=== PATIENT | female | born 1940 | race Caucasian/White ===

== ENCOUNTER → 2016-11-20 | Outpatient (CLI) | payer MEDICARE, OTHER ==
[~2016-11-20] MED LIST: ALEN35TA20 PO; ALEN35TA32 PO; CALC-697 PO; CATHETER FLUSH 10 ML SYR IV PRN; GABA-488 PO; GBPN300C PO; GLUC-148 PO; HCT25T PO; HYDR-3812 PO; HYDR-757 PO; HYDR25TA4 PO; IOHEXOL 350 MG/ML 100 ML (OMNIPAQUE 350) VIAL IV ONE; LISI20TA PO; NIAC500T6 PO; NS 100 ML (IVPB) BAG IV ONE; POTA10TA10 PO; PRD20T PO; SIMV40TA4 PO
--- NOTE | 2016-11-20 14:14 | Diagnostic Imaging Report ---
PROCEDURE: CT chest, abdomen, and pelvis with contrast. TECHNIQUE: Multiple contiguous axial images were obtained through the chest, abdomen, and pelvis after the administration of intravenous contrast. INDICATION: 25-pound weight loss, tobacco use, epigastric pain. CT chest: FINDINGS: The lungs are clear. There is no hilar or mediastinal lymphadenopathy. There are no effusions or pneumothoraces. Axillae are unremarkable. IMPRESSION: Negative CT chest. CT abdomen and pelvis: FINDINGS: The liver appears normal. The gallbladder is present. Pancreas appears normal. Spleen is not enlarged. Kidneys, adrenals and ureters appear normal. Urinary bladder appears normal. The uterus is surgically absent. Small bowel is not dilated. There is a moderate amount of stool in the colon. There is no intraperitoneal free air or free fluid. There is no mesenteric or retroperitoneal lymphadenopathy. There is some calcific atherosclerosis of the abdominal aorta and the origins of its major branches. IMPRESSION: Atherosclerosis. CT abdomen and pelvis otherwise unremarkable. Dictated by: Dictated on workstation # [id number]
== END ==
LOC: RAD 12:43
PROVIDERS: ATTEND Nurse Practitioner Family
DX: R10.13 Epigastric pain (principal); R63.4 Abnormal weight loss; Z72.0 Tobacco use
CPT/HCPCS: 71260; 74177

== ENCOUNTER → 2017-01-01 | Outpatient (CLI) | payer MEDICARE, OTHER ==
[~2017-01-01] MED LIST changes: -CATHETER FLUSH 10 ML SYR IV PRN; -IOHEXOL 350 MG/ML 100 ML (OMNIPAQUE 350) VIAL IV ONE; -NS 100 ML (IVPB) BAG IV ONE
--- OUTSIDE RECORDS SUMMARY | 2017-01-01 08:57 | XMS REPORT | Continuity of Care Document ---
Author Author [facility] Organization [facility] Address Unknown Phone Unavailable Allergies Active Description Code Type Severity Reaction Onset Reported/Identified Relationship to Patient Clinical Status Yes No Known Drug Allergies [id number] Drug Allergy Unknown N/ A 12/31/2011 Medications Problems Date Dx Coded Attending Type Code Diagnosis Diagnosed By 06/14/2013 LINDA TEJADA FIELD AUTOMOBILE ADJUSTER Ot 812.20 FX HUMERUS NOS-CLOSED 06/14/2013 LINDA TEJADA FIELD AUTOMOBILE ADJUSTER Ot 959.2 SHLDR/UPPER ARM INJ NOS 06/14/2013 LINDA TEJADA FIELD AUTOMOBILE ADJUSTER Ot E000.8 OTHER EXTERNAL CAUSE STATUS 06/14/2013 LINDA TEJADA FIELD AUTOMOBILE ADJUSTER Ot E849.0 ACCIDENT IN HOME 06/14/2013 LINDA TEJADA FIELD AUTOMOBILE ADJUSTER Ot E885.9 FALL FROM SLIPPING, TRIPPING, OR STUMBLI 02/28/2014 RBENDA CHARLES, ELIE Jackman Ot 719.51 JT STIFFNESS NEC-SHLDER 02/28/2014 ELIE GUTIERREZ MD Ot 729.5 PAIN IN LIMB 02/28/2014 BRENDA CHARLES, ELIE Jackman Ot V57.1 PHYSICAL THERAPY NEC 02/28/2014 BRENDA CHARLES, ELIE Jackman Ot V58.43 AFTERCARE POST SURGERY INJURY/TRAUMA 11/01/2014 Ot 793.82 11/01/2014 Ot V76.12 11/01/2014 Ot 305.1 11/01/2014 Ot 786.50 11/01/2014 Ot V12.72 11/01/2014 Ot V76.51 11/01/2014 Ot 793.81 11/01/2014 SONU NEGRON MD Ot V76.12 11/01/2014 SONU NEGRON MD Ot 724.2 11/01/2014 SONU NEGRON MD Ot V54.11 11/01/2014 SONU NEGRON MD Ot 459.89 11/01/2014 SONU NEGRON MD Ot V54.11 11/01/2014 MIGDALIA CHARLES, SONU M Ot 305.1 11/01/2014 MIGDALIA CHARLES, SONU M Ot 784.0 11/01/2014 MIGDALIA CHARLES, SONU M Ot 786.09 11/01/2014 MIGDALIA CHARLES, SONU M Ot 786.50 11/01/2014 Ot 793.82 11/01/2014 Ot V76.12 11/01/2014 Ot 305.1 11/01/2014 Ot 786.50 11/01/2014 Ot V12.72 11/01/2014 Ot V76.51 11/01/2014 Ot 793.81 11/01/2014 MIGDALIA CHARLES, SONU M Ot V76.12 11/01/2014 MIGDALIA CHARLES, SONU M Ot 724.2 11/01/2014 MIGDALIA CHARLES, SONU M Ot V54.11 11/01/2014 MIGDALIA CHARLES, SONU M Ot 459.89 11/01/2014 MIGDALIA CHARLES, SONU M Ot V54.11 11/01/2014 MIGDALIA CHARLES, SONU M Ot 305.1 11/01/2014 MIGDALIA CHARLES, SONU M Ot 784.0 11/01/2014 MIGDALIA CHARLES, SONU M Ot 786.09 11/01/2014 MIGDALIA CHARLES, SONU M Ot 786.50 11/01/2014 MIGDALIA CHARLES, SONU M Ot 305.1 11/01/2014 MIGDALIA CHARLES, SONU M Ot 784.0 11/01/2014 MIGDALIA CHARLES, SONU M Ot 786.09 11/01/2014 MIGDALIA CHARLES, SONU M Ot 786.50 11/17/2014 MIGDALIA CHARLES, SONU M Ot 305.1 11/17/2014 MIGDALIA CHARLES, SONU M Ot 784.0 11/17/2014 MIGDALIA CHARLES, SONU M Ot 786.09 11/17/2014 MIGDALIA CHARLES, SONU M Ot 786.50 05/23/2015 KOFFI MCCAIN PRIVATE DUTY AIDE Ot 305.1 05/23/2015 KOFFI MCCAIN PRIVATE DUTY AIDE Ot 733.90 06/08/2015 KOFFI MCCAIN PRIVATE DUTY AIDE Ot 305.1 06/08/2015 KOFFI MCCAIN PRIVATE DUTY AIDE Ot 733.90 07/24/2015 MEGAN ESPINOSA MD Ot E78.5 HYPERLIPIDEMIA, UNSPECIFIED 07/24/2015 MEGAN ESPINSOA MD Ot E87.6 HYPOKALEMIA 07/24/2015 MEGAN ESPINOSA MD Ot F17.200 NICOTINE DEPENDENCE, UNSPECIFIED, UNCOMP 07/24/2015 MEGAN ESPINOSA MD Ot M46.1 SACROILIITIS, NOT ELSEWHERE CLASSIFIED 07/24/2015 MEGAN ESPINOSA MD Ot M54.30 SCIATICA, UNSPECIFIED SIDE 07/24/2015 MEGAN ESPINOSA MD Ot M62.81 MUSCLE WEAKNESS (GENERALIZED) 07/24/2015 MEGAN ESPINOSA MD Ot T39.8X5A ADVERSE EFFECT OF NONOPIOID ANALGES/ ANTI 04/08/2016 Ot 793.82 INCONCLUSIVE MAMMOGRAM 04/08/2016 Ot V76.12 OTH SCREEN MAMMO-MALIGN NEOPLASM OF ZAID 04/08/2016 Ot 305.1 TOBACCO USE DISORDER 04/08/2016 Ot 786.50 CHEST PAIN NOS 04/08/2016 Ot V12.72 PERSONAL HISTORY OF COLONIC POLYPS 04/08/2016 Ot V76.51 SCREEN MAL NEOP-COLON 04/08/2016 Ot 793.81 MAMMOGRAPHIC MICROCLACIFICATION 04/08/2016 SONU NEGRON MD Ot V76.12 OTH SCREEN MAMMO-MALIGN NEOPLASM OF ZAID 04/08/2016 SONU NEGRON MD Ot 724.2 LUMBAGO 04/08/2016 SONU NEGRON MD Ot V54.11 AFTERCARE HEALING TRAUMATIC FX UPPER ARM 04/08/2016 SONU NEGRON MD Ot 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 04/08/2016 SONU NEGRON MD Ot V54.11 AFTERCARE HEALING TRAUMATIC FX UPPER ARM 04/08/2016 SONU NEGRON MD Ot 305.1 TOBACCO USE DISORDER 04/08/2016 SONU NEGRON MD Ot 784.0 HEADACHE 04/08/2016 SONU NEGRON MD Ot 786.09 RESPIRATORY ABNORM NEC 04/08/2016 SONU NEGRON MD Ot 786.50 CHEST PAIN NOS 04/08/2016 KOFFI MCCAIN Ot 305.1 TOBACCO USE DISORDER 04/08/2016 KOFFI MCCAIN PRIVATE DUTY AIDE Ot 733.90 BONE CARTILAGE DIS NOS 05/07/2016 KOFFI MCCAIN PRIVATE DUTY AIDE Ot M54.5 LOW BACK PAIN 06/13/2016 Ot 793.82 INCONCLUSIVE MAMMOGRAM 06/13/2016 Ot V76.12 OTH SCREEN MAMMO-MALIGN NEOPLASM OF ZAID 06/13/2016 Ot 305.1 TOBACCO USE DISORDER 06/13/2016 Ot 786.50 CHEST PAIN NOS 06/13/2016 Ot V12.72 PERSONAL HISTORY OF COLONIC POLYPS 06/13/2016 Ot V76.51 SCREEN MAL NEOP-COLON 06/13/2016 Ot 793.81 MAMMOGRAPHIC MICROCLACIFICATION 06/13/2016 SONU NEGRON MD Ot V76.12 OTH SCREEN MAMMO-MALIGN NEOPLASM OF ZAID 06/13/2016 SONU NEGRON MD Ot 724.2 LUMBAGO 06/13/2016 SONU NEGRON MD Ot V54.11 AFTERCARE HEALING TRAUMATIC FX UPPER ARM 06/13/2016 SONU NEGRON MD Ot 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 06/13/2016 SONU NEGRON MD Ot V54.11 AFTERCARE HEALING TRAUMATIC FX UPPER ARM 06/13/2016 SONU NEGRON MD Ot 305.1 TOBACCO USE DISORDER 06/13/2016 SONU NEGRON MD Ot 784.0 HEADACHE 06/13/2016 SONU NEGRON MD Ot 786.09 RESPIRATORY ABNORM NEC 06/13/2016 SONU NEGRON MD Ot 786.50 CHEST PAIN NOS 06/13/2016 KOFFI MCCAIN PRIVATE DUTY AIDE Ot 305.1 TOBACCO USE DISORDER 06/13/2016 KOFFI MCCAIN PRIVATE DUTY AIDE Ot 733.90 BONE CARTILAGE DIS NOS 06/13/2016 KOFFI MCCAINP Ot M54.5 LOW BACK PAIN 06/13/2016 KOFFI MCCAINP Ot Z12.31 ENCNTR SCREEN MAMMOGRAM FOR MALIGNANT NE 07/05/2016 KOFFI MCCAIN PRIVATE DUTY AIDE Ot Z12.31 ENCNTR SCREEN MAMMOGRAM FOR MALIGNANT NE 07/12/2016 RAVINDER HARRY FIELD AUTOMOBILE ADJUSTER Ot M79.602 PAIN IN LEFT ARM 07/12/2016 RAVINDER HARRY FIELD AUTOMOBILE ADJUSTER Ot R07.9 CHEST PAIN, UNSPECIFIED 07/12/2016 RAVINDER HARRY FIELD AUTOMOBILE ADJUSTER Ot R11.0 NAUSEA 07/30/2016 Ot 793.82 INCONCLUSIVE MAMMOGRAM 07/30/2016 Ot V76.12 OTH SCREEN MAMMO-MALIGN NEOPLASM OF ZAID 07/30/2016 Ot 305.1 TOBACCO USE DISORDER 07/30/2016 Ot 786.50 CHEST PAIN NOS 07/30/2016 Ot V12.72 PERSONAL HISTORY OF COLONIC POLYPS 07/30/2016 Ot V76.51 SCREEN MAL NEOP-COLON 07/30/2016 Ot 793.81 MAMMOGRAPHIC MICROCLACIFICATION 07/30/2016 MIGDALIA CHARLES, SONU Steel Ot V76.12 OTH SCREEN MAMMO-MALIGN NEOPLASM OF ZAID 07/30/2016 MIGDALIA CHARLES, SONU Steel Ot 724.2 LUMBAGO 07/30/2016 SONU NEGRON MD Ot V54.11 AFTERCARE HEALING TRAUMATIC FX UPPER ARM 07/30/2016 SOUN NEGRON MD Ot 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 07/30/2016 SONU NEGRON MD Ot V54.11 AFTERCARE HEALING TRAUMATIC FX UPPER ARM 07/30/2016 SONU NEGRON MD Ot 305.1 TOBACCO USE DISORDER 07/30/2016 SONU NEGRON MD Ot 784.0 HEADACHE 07/30/2016 SONU NEGRON MD Ot 786.09 RESPIRATORY ABNORM NEC 07/30/2016 SONU NEGRON MD Ot 786.50 CHEST PAIN NOS 07/30/2016 KOFFI MCCAIN Ot 305.1 TOBACCO USE DISORDER 07/30/2016 KOFFI MCCAINP Ot 733.90 BONE CARTILAGE DIS NOS 07/30/2016 KOFFI MCCAIN PRIVATE DUTY AIDE Ot M54.5 LOW BACK PAIN 07/30/2016 KOFFI MCCAINP Ot Z12.31 ENCNTR SCREEN MAMMOGRAM FOR MALIGNANT NE 07/30/2016 RAVINDER HARRY APRN Ot M79.602 PAIN IN LEFT ARM 07/30/2016 RAVINDER HARRY APRN Ot R07.9 CHEST PAIN, UNSPECIFIED 07/30/2016 RAVINDER HARRY APRN Ot R11.0 NAUSEA 07/31/2016 ANTHONY CHARLES, LETI Portillo Ot R07.9 CHEST PAIN, UNSPECIFIED 07/31/2016 LETI CRUZ MD Ot Z72.0 TOBACCO USE 07/31/2016 LETI CRUZ MD Ot Z82.49 FAMILY HX OF ISCHEM HEART DIS AND OTH DI 07/31/2016 LETI CRUZ MD Ot Z83.49 FAMILY HISTORY OF ENDO, NUTRITIONAL AND 08/01/2016 RAVINDER HARRY FIELD AUTOMOBILE ADJUSTER Ot M79.602 PAIN IN LEFT ARM 08/01/2016 KAMRYN RAVINDER M FIELD AUTOMOBILE ADJUSTER Ot R07.9 CHEST PAIN, UNSPECIFIED 08/01/2016 KAMRYN RAVINDER Steel FIELD AUTOMOBILE ADJUSTER Ot R11.0 NAUSEA 08/19/2016 LETI CRUZ MD Ot R07.9 CHEST PAIN, UNSPECIFIED 08/19/2016 LETI CRUZ MD Ot R07.9 CHEST PAIN, UNSPECIFIED 08/20/2016 LETI CRUZ MD Ot R07.9 CHEST PAIN, UNSPECIFIED 08/20/2016 LETI CRUZ MD Ot Z72.0 TOBACCO USE 08/20/2016 LETI CRUZ MD Ot Z82.49 FAMILY HX OF ISCHEM HEART DIS AND OTH DI 08/20/2016 LETI CRUZ MD Ot Z83.49 FAMILY HISTORY OF ENDO, NUTRITIONAL AND 08/20/2016 LETI CRUZ MD Ot R07.9 CHEST PAIN, UNSPECIFIED 08/20/2016 LETI CRUZ MD Ot Z72.0 TOBACCO USE 08/20/2016 LETI CRUZ MD Ot Z82.49 FAMILY HX OF ISCHEM HEART DIS AND OTH DI 08/20/2016 LETI CRUZ MD Ot Z83.49 FAMILY HISTORY OF ENDO, NUTRITIONAL AND 08/20/2016 LETI CRUZ MD Ot R07.9 CHEST PAIN, UNSPECIFIED 08/20/2016 LETI CRUZ MD Ot Z72.0 TOBACCO USE 08/20/2016 LETI CRUZ MD Ot Z82.49 FAMILY HX OF ISCHEM HEART DIS AND OTH DI 08/20/2016 LETI CRUZ MD Ot Z83.49 FAMILY HISTORY OF ENDO, NUTRITIONAL AND 08/25/2016 LETI CRUZ MD Ot R07.9 CHEST PAIN, UNSPECIFIED 08/25/2016 LETI CRUZ MD Ot Z72.0 TOBACCO USE 08/25/2016 LETI CRUZ MD J Ot Z82.49 FAMILY HX OF ISCHEM HEART DIS AND OTH DI 08/25/2016 LETI CRUZ MD J Ot Z83.49 FAMILY HISTORY OF ENDO, NUTRITIONAL AND 08/27/2016 LETI CRUZ MD J Ot R07.9 CHEST PAIN, UNSPECIFIED 08/27/2016 LETI CRUZ MD J Ot Z72.0 TOBACCO USE 08/27/2016 LETI CRUZ MD J Ot Z82.49 FAMILY HX OF ISCHEM HEART DIS AND OTH DI 09/10/2016 LETI CRUZ MD J Ot R07.9 CHEST PAIN, UNSPECIFIED 09/10/2016 LETI CRUZ MD J Ot Z72.0 TOBACCO USE 09/10/2016 LETI CRUZ MD J Ot Z82.49 FAMILY HX OF ISCHEM HEART DIS AND OTH DI 09/10/2016 LETI CRUZ MD J Ot Z83.49 FAMILY HISTORY OF ENDO, NUTRITIONAL AND 09/17/2016 LETI CRUZ MD J Ot R07.9 CHEST PAIN, UNSPECIFIED 09/17/2016 LETI CRUZ MD J Ot Z72.0 TOBACCO USE 09/17/2016 LETI CRUZ MD J Ot Z82.49 FAMILY HX OF ISCHEM HEART DIS AND OTH DI 11/21/2016 KOFFI MCCAIN PRIVATE DUTY AIDE Ot R10.13 EPIGASTRIC PAIN 11/21/2016 KOFFI MCCAIN PRIVATE DUTY AIDE Ot R63.4 ABNORMAL WEIGHT LOSS 11/21/2016 KOFFI MCCAIN PRIVATE DUTY AIDE Ot Z72.0 TOBACCO USE 11/21/2016 KOFFI MCCAIN PRIVATE DUTY AIDE Ot R10.13 EPIGASTRIC PAIN 11/21/2016 KOFFI MCCAIN PRIVATE DUTY AIDE Ot R63.4 ABNORMAL WEIGHT LOSS 11/21/2016 KOFFI MCCAIN PRIVATE DUTY AIDE Ot Z72.0 TOBACCO USE 12/11/2016 KOFFI MCCAIN PRIVATE DUTY AIDE Ot R10.13 EPIGASTRIC PAIN 12/11/2016 KOFFI MCCAIN PRIVATE DUTY AIDE Ot R63.4 ABNORMAL WEIGHT LOSS 12/11/2016 KOFFI MCCAIN PRIVATE DUTY AIDE Ot Z72.0 TOBACCO USE 12/24/2016 KOFFI MCCAIN PRIVATE DUTY AIDE Ot R10.13 EPIGASTRIC PAIN 12/24/2016 KOFFI MCCAIN PRIVATE DUTY AIDE Ot R63.4 ABNORMAL WEIGHT LOSS 12/24/2016 KOFFI MCCAIN [facility] Ot Z72.0 TOBACCO USE Procedures Results Test Result Range Complete blood count (CBC) with automated white blood cell (WBC) differential - 07/11/16 12:35 Blood leukocytes automated count (number/volume) 8.5 10*3/ uL 4.3-11.0 Blood erythrocytes automated count (number/volume) 4.69 10*6 /uL 4.35-5.85 Venous blood hemoglobin measurement (mass/volume) 14.9 g/dL 11.5-16.0 Blood hematocrit (volume fraction) 43 % 35-52 Automated erythrocyte mean corpuscular volume 91 [foz_us] 80-99 Automated erythrocyte mean corpuscular hemoglobin (mass per erythrocyte) 32 pg 25-34 Automated erythrocyte mean corpuscular hemoglobin concentration measurement ( mass/volume) 35 g/dL 32-36 Automated erythrocyte distribution width ratio 14.2 % 10.0-14.5 Automated blood platelet count (count/volume) 188 10*3/uL 130-400 Automated blood platelet mean volume measurement 10.6 [foz_ us] 7.4-10.4 Automated blood neutrophils/100 leukocytes 62 % 42-75 Automated blood lymphocytes/100 leukocytes 28 % 12-44 Blood monocytes/100 leukocytes 7 % 0-12 Automated blood eosinophils/100 leukocytes 3 % 0-10 Automated blood basophils/100 leukocytes 1 % 0-10 Blood neutrophils automated count (number/volume) 5.2 10*3 1.8-7.8 Blood lymphocytes automated count (number/volume) 2.4 10*3 1.0-4.0 Blood monocytes automated count (number/volume) 0.6 10*3 0.0-1.0 Automated eosinophil count 0.2 10*3/uL 0.0-0.3 Automated blood basophil count (count/volume) 0.1 10*3/uL 0.0-0.1 Comprehensive metabolic panel - 07/11/16 12:35 Serum or plasma sodium measurement (moles/volume) 142 mmol/ L 135-145 Serum or plasma potassium measurement (moles/volume) 3.7 mmol/L 3.6-5.0 Serum or plasma chloride measurement (moles/volume) 110 mmol /L 98-107 Carbon dioxide 22 mmol/L 21-32 Serum or plasma anion gap determination (moles/volume) 10 mmol/L 5-14 Serum or plasma urea nitrogen measurement (mass/volume) 15 mg/dL 7-18 Serum or plasma creatinine measurement (mass/volume) 0.90 mg /dL 0.60-1.30 Serum or plasma urea nitrogen/creatinine mass ratio 17 NRG Serum or plasma creatinine measurement with calculation of estimated glomerular filtration rate > NRG Serum or plasma glucose measurement (mass/volume) 93 mg/dL 70-105 Serum or plasma calcium measurement (mass/volume) 10.0 mg/ dL 8.5-10.1 Serum or plasma total bilirubin measurement (mass/volume) 0.4 mg/dL 0.1-1.0 Serum or plasma alkaline phosphatase measurement (enzymatic activity/volume) 38 U/L 40-136 Serum or plasma aspartate aminotransferase measurement (enzymatic activity/ volume) 23 U/L 5-34 Serum or plasma alanine aminotransferase measurement (enzymatic activity/volume ) 16 U/L 0-55 Serum or plasma protein measurement (mass/volume) 6.5 g/dL 6.4-8.2 Serum or plasma albumin measurement (mass/volume) 4.2 g/dL 3.2-4.5 Serum or plasma creatine kinase MB measurement (enzymatic activity/volume) - 12:35 Serum or plasma creatine kinase MB measurement (enzymatic activity/volume) 1.5 ng/mL <6.6 Serum or plasma troponin i.cardiac measurement (mass/volume) - 07/11/16 12:35 Serum or plasma troponin i.cardiac measurement (mass/volume) < ng/mL <0.30 Encounters ACCT No. Visit Date/Time Discharge Status Pt. Type Provider Facility Loc./Unit Complaint [id number] 07/28/2015 10:24:00 2014 23:59:59 CLS Preadmit MEGAN ESPINOSA MD [facility] REHAB [id number] 07/23/2015 11:33:00 2014 10:57:00 DIS Inpatient MEGAN ESPINOSA MD [facility] CSD LEFT SIDED WEAKNESS [id number] 05/18/2015 09:12:00 2014 23:59:59 CLS Outpatient KOFFI MCCAIN [facility] RAD OSTEOPOROSIS TOBACCO USE [id number] 10/19/2014 07:55:00 2013 23:59:59 CLS Outpatient OSNU NEGRON MD [facility] RAD HEADACHES,DYSGEUSIA [id number] 12/28/2013 12:53:00 2013 00:01:00 DIS Outpatient ELIE GUTIERREZ MD [facility] REHAB L SHOULDER HEMIARTHROPLASTY, L CARPAL TUNNEL SYND [id number] 10/19/2013 12:14:00 2012 23:59:59 CLS Outpatient SONU NEGRON MD [facility] RAD PAIN IN LEFT SHOULDER [id number] 08/16/2013 10:40:00 2012 23:59:59 CLS Outpatient SONU NEGRON MD [facility] RAD F/U FX HUMERUS,PACK PAIN [id number] 06/14/2013 12:53:00 2012 14:41:00 DIS Emergency LINDA TEJADA FIELD AUTOMOBILE ADJUSTER [facility] ER FALL/LEFT SHOULDER INJURY [id number] 03/08/2013 09:06:00 2012 23:59:59 CLS Outpatient SONU NEGRON MD [facility] RAD SCREENING [id number] 11/20/2016 12:43:00 ACT Outpatient KOFFI MCCAIN PRIVATE DUTY AIDE [facility] RAD ABD PAIN, WT LOSS, TOBACCO USE [id number] 08/26/2016 14:58:00 ACT Outpatient LETI CRUZ MD [facility] RAD CHEST PAIN SYNDROME [id number] 08/19/2016 06:51:00 ACT Outpatient LETI CRUZ MD [facility] CARD CHEST PAIN SYNDROME,CAD [id number] 07/30/2016 14:35:00 ACT Outpatient LETI CRUZ MD [facility] CARD CHEST PAIN SYNDROME,HLP,CAD,CAROTID ARTERY STENOSI [id number] 07/11/2016 12:12:00 ACT Outpatient RAVINDER HARRY FIELD AUTOMOBILE ADJUSTER [facility] CARD CHEST PAIN,LT ARM PAIN,NAUSEA [id number] 06/13/2016 10:49:00 ACT Outpatient KOFFI MCCAIN [facility] RAD SCREENING [id number] 04/08/2016 11:46:00 ACT Outpatient KOFFI MCCAIN [facility] RAD LOW BACK PAIN [id number] 11/01/2014 16:06:00 Document Registration [id number] 01/14/2012 12:50:00 Document Registration [id number] 01/02/2012 05:48:00 Document Registration [id number] 12/31/2011 06:17:00 Document Registration [id number] 12/27/2011 10:51:00 Document Registration
--- NOTE | 2017-01-01 09:40 | Diagnostic Imaging Report ---
EXAMINATION: Right upper extremity duplex ultrasound venous. INDICATION: Right arm pain. FINDINGS: The right internal jugular, subclavian, axillary, brachial, basilic, radial, and ulnar veins are all patent with color flow and compressibility (when applicable) seen. There is a fluid collection measuring 1.4 x 0.9 x 1.8 cm seen in the antecubital fossa in a relatively deep location, possibly related to a ganglion cyst or injury related. IMPRESSION: 1. No evidence of DVT in the right upper extremity. 2. There is a 1.4 cm cystic area in the antecubital fossa deep soft tissues, possibly a ganglion cyst or sequela of a hematoma. Dictated by: Dictated on workstation # [id number]
== END ==
LOC: RAD 08:53
PROVIDERS: ATTEND Nurse Practitioner Family
DX: R93.7 Abnormal findings on diagnostic imaging of other parts of musculoskeletal system (principal); M79.601 Pain in right arm

== ENCOUNTER → 2017-04-16 | Outpatient (CLI) | payer MEDICARE, OTHER ==
--- NOTE | 2017-04-16 19:10 | Diagnostic Imaging Report ---
EXAMINATION: Three views of the lumbar spine. INDICATION: Back pain. FINDINGS: There is mild right convexity curvature of the lumbar spine. The posterior spinal line alignment is satisfactory. There is compression deformity of T12 vertebral body which appears similar to 08/26/2016. The other vertebral body heights appear preserved. There is advanced degenerative changes in the lumbar spine with vacuum phenomena at L5-S1 and multilevel anterior osteophyte seen. Degenerative sclerotic changes in the SI joints are noted. There are pelvic calcifications likely phleboliths. IMPRESSION: Scoliosis. Degenerative changes. Old compression fracture of T12. Dictated by: Dictated on workstation # [id number]
--- NOTE | 2017-04-16 19:17 | Diagnostic Imaging Report ---
Three views of the thoracic spine. INDICATION: Back pain. FINDINGS: There is a chronic compression fracture of T12, about 30% height loss is seen, stable from 08/26/2016 chest x-ray. There is otherwise satisfactory alignment of the posterior spinal line. There is prominent anterior osteophytes at multiple levels but most prominent at T12/L1. The paraspinal soft tissues appear grossly unremarkable. There is evidence of shoulder replacement seen on the left side. IMPRESSION: Mild to moderate degenerative changes. Old compression fracture of T12 level. Dictated by: Dictated on workstation # [id number]
== END ==
LOC: RAD 14:27
PROVIDERS: ATTEND Nurse Practitioner Family
DX: M41.26 Other idiopathic scoliosis, lumbar region (principal); M47.816 Spondylosis without myelopathy or radiculopathy, lumbar region; M53.3 Sacrococcygeal disorders, not elsewhere classified
CPT/HCPCS: 72072; 72100

== ENCOUNTER → 2017-09-24 | Outpatient (CLI) | payer MEDICARE, OTHER ==
[~2017-09-24] MED LIST changes: +IOHEXOL 350 MG/ML 100 ML (OMNIPAQUE 350) VIAL IV ONE; +NS 100 ML (IVPB) BAG IV ONE
[2017-09-24 09:15] LABS: CREATININE SERUM 0.95 MG/DL (0.60-1.30)
--- NOTE | 2017-09-24 10:29 | Diagnostic Imaging Report ---
INDICATION: Left lower quadrant pain. TECHNIQUE: CT of the abdomen and pelvis obtained with IV contrast bolus. COMPARISON: Comparison made with 11/20/2016. FINDINGS: The visualized portions of the lung bases are clear. There were no pleural fluid collections. There is no free intraperitoneal air. The liver shows no focal lesion. Gallbladder is unremarkable. The spleen is not enlarged and shows no focal lesion. The adrenals and pancreas are unremarkable. The kidneys bilaterally show no hydronephrosis. There is a small benign-appearing cyst in the left kidney inferiorly. There is no retroperitoneal mass or adenopathy. There is no ascites or abnormal fluid collection. Visualized bowel loops are unremarkable. There are atherosclerotic changes of the aorta without evidence of aneurysm or dissection. The patient appears to have had prior hysterectomy. IMPRESSION: No acute process in the abdomen or pelvis with no significant change compared to the previous study. Dictated by: Dictated on workstation # [id number]
== END ==
LOC: RAD 08:40
PROVIDERS: ATTEND Nurse Practitioner Family
DX: R10.32 Left lower quadrant pain (principal)
CPT/HCPCS: 36415; 74177; 82565; 84520

== ENCOUNTER → 2018-01-13 | Outpatient (CLI) | payer MEDICARE, OTHER ==
[~2018-01-13] MED LIST changes: +ACHD5005 PO; -HYDR-3812 PO; -IOHEXOL 350 MG/ML 100 ML (OMNIPAQUE 350) VIAL IV ONE; -NS 100 ML (IVPB) BAG IV ONE
--- NOTE | 2018-01-13 13:33 | Diagnostic Imaging Report ---
INDICATION: Uncontrolled hypertension. TECHNIQUE: Grayscale, color-flow and duplex Doppler evaluation of both kidneys was performed. FINDINGS: The right kidney measures 10.1 x 4.3 x 3.4 cm and the left kidney measures 10.2 x 5.4 x 4.8 cm. The cortical thickness and echogenicity appears normal. No calculi or hydronephrosis is identified. Renal artery velocities appear to be unremarkable although the proximal left renal artery was not well visualized. The renal artery to aorta ratios are normal reaching 1.0 on the right and 0.9 on the left. Waveforms are unremarkable. The bladder is unremarkable. Bilateral ureteral jets were visualized. IMPRESSION: Unremarkable renal ultrasound with renal Doppler. No definite findings to suggest renal artery stenosis are detected. Dictated by: Dictated on workstation # [id number]
== END ==
LOC: RAD 09:44
PROVIDERS: ATTEND Family Medicine
DX: I10 Essential (primary) hypertension (principal)
CPT/HCPCS: 93975

== ENCOUNTER 2018-08-28 07:56 | Emergency (ER) | payer MEDICARE, OTHER ==
[~2018-08-28] VITALS: Ht 157.5 cm; Wt 50.8 kg
--- OUTSIDE RECORDS SUMMARY | 2018-08-28 08:15 | XMS REPORT | CCD ---
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 Role Phone PP Unavailable CCM Unavailable Summary Purpose Interface Exchange Insurance Providers Payer name Policy type / Coverage type Covered alliance party ID Effective Begin Date Effective End Date WPS Medicare Part B Medicare Part B [id number] Unknown [employer] Medicare Part B [id number] Unknown Family history Father Diagnosis Age At Onset Asthma Unknown Brother Diagnosis Age At Onset Hyperlipidemia Unknown Heart Attack Unknown Hypertension Unknown Heart disease Unknown Son Diagnosis Age At Onset Skin cancer Unknown Sister Diagnosis Age At Onset Breast cancer Unknown Colon cancer Unknown Diabetes mellitus Type 2 Unknown Social History Social History Element Codes Description Effective Dates Marital status Unknown Sonido 09/16/2017 Number of children Unknown 4 05/16/[address]: 69684708 Current every day smoker 05/16/2015 Number of years using tobacco Unknown 20 - 30 05/16/2015 Number of cigarettes/day Unknown 20 (One Pack) 1 /05/16/[address]: 685349528 Never drinks alcohol 05/16/2015 Allergies, Adverse Reactions, Alerts Substance Reaction Codes Entered Date Inactivated Date Status * NO KNOWN FOOD ALLERGIES Unknown 05/16/2015 No Inactive Date Active * NO KNOWN DRUG ALLERGIES Unknown 05/16/2015 No Inactive Date Active * NO KNOWN DRUG ALLERGIES Unknown 05/16/2015 No Inactive Date Active Past Medical History Illness Codes Condition Status Onset Date Resolved Date Essential (primary) hypertension ICD-9: 401.1 ICD-10: I10 Active 01/05/2018 Unknown Other hypotension ICD- 9: 458.8 ICD-10: I95.89 Active 07/23/2018 Unknown Essential tremor ICD-9 : 333.1 ICD-10: G25.0 Active 01/05/2018 Unknown Hypokalemia ICD-9: 276.8 ICD-10: E87.6 Active 06/09/2016 Unknown Other allergic rhinitis ICD-9: 477.8 ICD-10: J30.89 Active 06/15/2018 Unknown Restless legs syndrome ICD-9: 333.94 ICD-10: G25.81 Active 11/13/2017 Unknown Other acute sinusitis ICD-9: 461.8 ICD-10: J01.80 Active 06/15/2018 Unknown Essential (primary) hypertension ICD-9: 401.9 ICD-10: I10 Active 09/08/2016 Unknown Generalized anxiety disorder ICD-9: 300.00 ICD-10: F41.1 Active 01/17/2017 Unknown Cervicalgia ICD-9: 723.1 ICD-10: M54.2 Active 11/13/2017 Unknown Other muscle spasm ICD -9: 728.85 ICD-10: M62.838 Active 11/13/2017 Unknown Pain in left shoulder ICD-9: 719.41 ICD-10: M25.512 Active 11/13/2017 Unknown Pain in right shoulder ICD-9: 719.41 ICD-10: M25.511 Active 11/13/2017 Unknown Generalized anxiety disorder ICD-9: 300.02 ICD-10: F41.1 Active 11/15/2016 Unknown Left lower quadrant pain ICD-9: 789.04 ICD-10: R10.32 Active 09/16/2017 Unknown Hypertension Unknown Active 07/15/2017 Unknown Encounter for immunization ICD-9: V04.81 ICD-10: Z23 Active 07/15/2017 Unknown Abnormal weight loss ICD-9: 783.21 ICD-10: R63.4 Active 09/08/2016 Unknown Low back pain ICD-9: 724.2 ICD-10: M54.5 Active 04/16/2017 Unknown Pain in thoracic spine ICD-9: 724.1 ICD-10: M54.6 Active 04/16/2017 Unknown Gastro-esophageal reflux disease without esophagitis ICD-9: 530.81 ICD-10: K21.9 Active 01/17/2017 Unknown Generalized abdominal pain ICD-9: 789.07 ICD-10: R10.84 Active 11/15/2016 Unknown Pain in right upper arm ICD-9: 729.5 ICD-10: M79.621 Active 01/01/2017 Unknown Tobacco use ICD-9: 305.1 ICD-10: Z72.0 Active 04/07/2016 Unknown Dysuria ICD-9: 788.1 ICD-10: R30.0 Active 09/08/2016 Unknown Impaired fasting glucose ICD-9: 790.21 ICD-10: R73.01 Active 09/08/2016 Unknown Mixed hyperlipidemia ICD-9: 272.2 ICD-10: E78.2 Active 09/08/2016 Unknown Other chest pain ICD-9 : 786.59 ICD-10: R07.89 Active 07/10/2016 Unknown Encounter for screening mammogram for malignant neoplasm of breast ICD-9: V76.12 ICD-10: Z12.31 Active 06/09/2016 Unknown Radiculopathy, lumbar region ICD-9: 724.4 ICD-10: M54.16 Active 04/07/2016 Unknown Cramp and spasm ICD-9 : 729.82 ICD-10: R25.2 Active 03/06/2016 Unknown Hyperlipidemia, unspecified ICD-9: 272.4 ICD-10: E78.5 Active 03/03/2016 Unknown Other osteoporosis without current pathological fracture ICD-9: 733.00 ICD-10: M81.8 Active 03/03/2016 Unknown Acute maxillary sinusitis, unspecified ICD-9: 461.0 ICD-10: J01.00 Active 09/04/2015 Unknown Sciatica Unknown Active 08/07/2015 Unknown Encounter for follow-up examination after completed treatment for conditions other than malignant neoplasm ICD-9: V67.59 ICD-10: Z09 Active 08/06/2015 Unknown Nicotine dependence, unspecified, uncomplicated ICD-9: 305.1 ICD-10: F17.200 Active 08/06/2015 Unknown Sciatica, left side ICD-9: 724.3 ICD-10: M54.32 Active 08/06/2015 Unknown Unspecified inflammatory spondylopathy, sacral and sacrococcygeal region ICD-9: 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.9 ICD-10: M46.98 Active 08/06/2015 Unknown Hyperlipidemia Unknown Active 05/16/2015 Unknown Hyperlipidemia ICD-9: 272.4 Active 05/15/2015 Unknown Osteoporosis ICD-9: 733.00 Active 05/15/2015 Unknown Tobacco use ICD-9: 305.1 Active 05/15/2015 Unknown Problems Condition Codes Effective Dates Condition Status Essential (primary) hypertension ICD-9: 401.1 ICD-10: I10 01/05/2018 Active Other hypotension ICD- 9: 458.8 ICD-10: I95.89 07/23/2018 Active Essential tremor ICD-9 : 333.1 ICD-10: G25.0 01/05/2018 Active Hypokalemia ICD-9: 276.8 ICD-10: E87.6 06/09/2016 Active Other allergic rhinitis ICD-9: 477.8 ICD-10: J30.89 06/15/2018 Active Restless legs syndrome ICD-9: 333.94 ICD-10: G25.81 11/13/2017 Active Other acute sinusitis ICD-9: 461.8 ICD-10: J01.80 06/15/2018 Active Essential (primary) hypertension ICD-9: 401.9 ICD-10: I10 09/08/2016 Active Generalized anxiety disorder ICD-9: 300.00 ICD-10: F41.1 01/17/2017 Active Cervicalgia ICD-9: 723.1 ICD-10: M54.2 11/13/2017 Active Other muscle spasm ICD -9: 728.85 ICD-10: M62.838 11/13/2017 Active Pain in left shoulder ICD-9: 719.41 ICD-10: M25.512 11/13/2017 Active Pain in right shoulder ICD-9: 719.41 ICD-10: M25.511 11/13/2017 Active Generalized anxiety disorder ICD-9: 300.02 ICD-10: F41.1 11/15/2016 Active Left lower quadrant pain ICD-9: 789.04 ICD-10: R10.32 09/16/2017 Active Hypertension Unknown 07/15/2017 Active Encounter for immunization ICD-9: V04.81 ICD-10: Z23 07/15/2017 Active Abnormal weight loss ICD-9: 783.21 ICD-10: R63.4 09/08/2016 Active Low back pain ICD-9: 724.2 ICD-10: M54.5 04/16/2017 Active Pain in thoracic spine ICD-9: 724.1 ICD-10: M54.6 04/16/2017 Active Gastro-esophageal reflux disease without esophagitis ICD-9: 530.81 ICD-10: K21.9 01/17/2017 Active Generalized abdominal pain ICD-9: 789.07 ICD-10: R10.84 11/15/2016 Active Pain in right upper arm ICD-9: 729.5 ICD-10: M79.621 01/01/2017 Active Tobacco use ICD-9: 305.1 ICD-10: Z72.0 04/07/2016 Active Dysuria ICD-9: 788.1 ICD-10: R30.0 09/08/2016 Active Impaired fasting glucose ICD-9: 790.21 ICD-10: R73.01 09/08/2016 Active Mixed hyperlipidemia ICD-9: 272.2 ICD-10: E78.2 09/08/2016 Active Other chest pain ICD-9 : 786.59 ICD-10: R07.89 07/10/2016 Active Encounter for screening mammogram for malignant neoplasm of breast ICD-9: V76.12 ICD-10: Z12.31 06/09/2016 Active Radiculopathy, lumbar region ICD-9: 724.4 ICD-10: M54.16 04/07/2016 Active Cramp and spasm ICD-9 : 729.82 ICD-10: R25.2 03/06/2016 Active Hyperlipidemia, unspecified ICD-9: 272.4 ICD-10: E78.5 03/03/2016 Active Other osteoporosis without current pathological fracture ICD-9: 733.00 ICD-10: M81.8 03/03/2016 Active Acute maxillary sinusitis, unspecified ICD-9: 461.0 ICD-10: J01.00 09/04/2015 Active Sciatica Unknown 08/07/2015 Active Encounter for follow-up examination after completed treatment for conditions other than malignant neoplasm ICD-9: V67.59 ICD-10: Z09 08/06/2015 Active Nicotine dependence, unspecified, uncomplicated ICD-9: 305.1 ICD-10: F17.200 08/06/2015 Active Sciatica, left side ICD-9: 724.3 ICD-10: M54.32 08/06/2015 Active Unspecified inflammatory spondylopathy, sacral and sacrococcygeal region ICD-9: 720.9 ICD-10: M46.98 08/06/2015 Active Hyperlipidemia Unknown 05/16/2015 Active Hyperlipidemia ICD-9: 272.4 05/15/2015 Active Osteoporosis ICD-9: 733.00 05/15/2015 Active Tobacco use ICD-9: 305.1 05/15/2015 Active Medications Medication Codes Instructions Start Date Stop Date Status Fill Instructions potassium chloride ER 10 mEq tablet,extended release RxNorm: 027309 1 Tablet(s) PO TIW 08/12/2018 08/06/2019 Active Requip 1 mg tablet RxNorm: 856215 TAKE 1 TABLET BY MOUTH TWICE DAILY 07/20/2018 No Stop Date Active hydrochlorothiazide 12.5 mg tablet RxNorm: 652511 1 Tablet(s) PO daily 07/10/2018 07/20/2018 Inactive hydrochlorothiazide 12.5 mg tablet RxNorm: 234893 1 Tablet(s) PO daily 06/15/2018 07/09/2018 Inactive Kenalog 40 mg/mL suspension for injection RxNorm: 0570172 Milliliter(s) Inj 06/15/2018 06/15/2018 Inactive losartan 25 mg tablet RxNorm: 987706 1/2 Tablet(s) PO BID 201712/30/2018 Active update to rx gabapentin 300 mg capsule RxNorm: 060696 1 Capsule(s) PO UD 1 pill AM and 2 pills PM 01/05/2018 12/30/2018 Active pt will run out of current rx sooner - does not yet need this filled Requip 1 mg tablet RxNorm: 477835 1 Tablet(s) PO BID 201707/05/2018 Inactive losartan 25 mg tablet RxNorm: 311902 1 Tablet(s) PO QPM 201701/04/2018 Inactive Requip 0.5 mg tablet RxNorm: 819528 1 Tablet(s) PO BID 201712/07/2017 Inactive prednisone 20 mg tablet RxNorm: 118590 2 Tablet(s) PO daily 11/17/2017 Inactive Celexa 20 mg tablet RxNorm: 294003 1 Tablet(s) PO QAM 201612/07/2017 Inactive Xanax 0.25 mg tablet RxNorm: 003633 1 Tablet(s) PO BID PRN as needed 09/16/2017 01/13/2018 Inactive Celexa 10 mg tablet RxNorm: 377494 1 Tablet(s) PO QAM 201610/05/2017 Inactive potassium chloride ER 10 mEq tablet,extended release RxNorm: 998271 1 Tablet(s) PO BIW 07/15/2017 07/09/2018 Inactive Xanax 0.25 mg tablet RxNorm: 121737 1 Tablet(s) PO BID PRN as needed 06/20/2017 08/18/2017 Inactive omeprazole 40 mg capsule,delayed release RxNorm: 956617 1 Capsule(s) PO daily 06/10/2017 09/07/2017 Inactive gabapentin 300 mg capsule RxNorm: 454303 1 Capsule(s) PO BID 12/06/2017 Inactive [SAVINGS FOR NON-COVERED DRUGS -- BIN:[id number], PCN: ASPROD1, Group: XXXXX , ID# XXXXXXX, Questions: . THIS IS NOT INSURANCE.] Xanax 0.25 mg tablet RxNorm: 557642 1 Tablet(s) PO BID PRN as needed 04/16/2017 06/14/2017 Inactive Xanax 0.25 mg tablet RxNorm: 803044 1 Tablet(s) PO BID PRN as needed 01/17/2017 03/17/2017 Inactive omeprazole 40 mg capsule,delayed release RxNorm: 190715 1 Capsule(s) PO daily 01/17/2017 04/16/2017 Inactive naproxen 500 mg tablet RxNorm: 552162 1 Tablet(s) PO BID as needed 01/01/2017 01/05/2017 Inactive Xanax 0.25 mg tablet RxNorm: 792953 1 Tablet(s) PO BID PRN as needed 12/16/2016 01/16/2017 Inactive gabapentin 300 mg capsule RxNorm: 216504 1 Capsule(s) PO BID 06/06/2017 Inactive [SAVINGS FOR NON-COVERED DRUGS -- BIN:[id number], PCN: ASPROD1, Group: XXXXX , ID# [id number], Questions: . THIS IS NOT INSURANCE.] simvastatin 40 mg tablet RxNorm: 638703 1 Tablet(s) PO daily 12/07/2017 Inactive Xanax 0.25 mg tablet RxNorm: 888328 1 Tablet(s) PO BID PRN as needed 11/11/2016 01/07/2017 Inactive omeprazole 40 mg capsule,delayed release RxNorm: 256379 1 Capsule(s) PO daily 07/11/2016 08/09/2016 Inactive omeprazole 40 mg capsule,delayed release RxNorm: 977371 1 Capsule(s) PO daily 07/11/2016 07/10/2016 Inactive potassium chloride ER 10 mEq tablet,extended release RxNorm: 710515 1 Tablet(s) PO TIW 04/25/2016 04/24/2016 Inactive potassium chloride ER 10 mEq tablet,extended release RxNorm: 025367 1 Tablet(s) PO TIW 04/25/2016 06/09/2016 Inactive calcitonin (salmon) 200 unit/actuation nasal spray RxNorm: 317169 1 [place] NASAL daily alternate nares daily 04/17/2016 Inactive pt wouldl like to know lee before coming out calcitonin (salmon) 200 unit/actuation nasal spray RxNorm: 956044 1 [place] NASAL daily alternate nares daily 04/17/2016 Inactive gabapentin 300 mg capsule RxNorm: 311933 1 Capsule(s) PO BID 10/04/2016 Inactive [SAVINGS FOR NON-COVERED DRUGS -- BIN:633584, PCN: ASPROD1, Group: XXXXX , ID# XXXXXXX, Questions: . THIS IS NOT INSURANCE.] gabapentin 100 mg capsule RxNorm: 470338 2 Capsule(s) PO BID 04/28/2016 Inactive START WITH 100MG TWICE DAILY X 2 WEEKS THEN INCREASE TO 2 CAPSULES TWICE DAILY, TAKE WITH 300MG CAPSULES TWICE DAILY alendronate 35 mg tablet RxNorm: 554548 1 Tablet(s) PO weekly QW 02/29/2016 03/06/2016 Inactive simvastatin 40 mg tablet RxNorm: 838412 1 Tablet(s) PO daily 11/06/2016 Inactive hydrochlorothiazide 25 mg tablet RxNorm: 302977 1 Tablet(s) PO daily 11/13/2015 06/09/2016 Inactive gabapentin 300 mg capsule RxNorm: 608983 1 Capsule(s) PO BID 04/05/2016 Inactive [SAVINGS FOR NON-COVERED DRUGS -- BIN:349424, PCN: ASPROD1, Group: XXXXX , ID# XXXXXXX, Questions: . THIS IS NOT INSURANCE.] Augmentin 500 mg-125 mg tablet RxNorm: 901799 1 Tablet(s) PO TID 09/05/2015 09/11/2015 Inactive potassium chloride ER 10 mEq tablet,extended release RxNorm: 064794 1 Tablet(s) PO TIW 08/07/2015 04/24/2016 Inactive gabapentin 300 mg capsule RxNorm: 945524 1 Capsule(s) PO BID 10/08/2015 Inactive [SAVINGS FOR NON-COVERED DRUGS -- BIN:[id number], PCN: ASPROD1, Group: XXXXX , ID# XXXXXXX, Questions: . THIS IS NOT INSURANCE.] alendronate 35 mg tablet RxNorm: 204729 1 Tablet(s) PO weekly QW 06/13/2015 02/28/2016 Inactive gabapentin 300 mg capsule RxNorm: 525157 1 Capsule(s) PO BID 05/20/2015 Inactive [SAVINGS FOR NON-COVERED DRUGS -- BIN:894228, PCN: ASPROD1, Group: XXXXX , ID# XXXXXXX, Questions: . THIS IS NOT INSURANCE.] gabapentin 300 mg capsule RxNorm: 841689 1 Capsule(s) PO BID 02/19/2015 Inactive Calcium RxNorm: PO oscal 4 per day No Start Date Active magnesium oxide 400 mg tablet RxNorm: 296013 1/2 Tablet(s) PO daily No Start Date Active niacin 500 mg tablet RxNorm: 807613 1 Tablet(s) PO daily No Start Date 12/07/2017 Inactive hydrocodone 5 mg-acetaminophen 325 mg tablet RxNorm: 075973 1 Tablet(s) PO Q4H as needed No Start Date 12/07/2017 Inactive Fish Oil 1,000 mg capsule RxNorm: 1200 Capsule(s) PO daily No Start Date 12/07/2017 Inactive cyanocobalamin (vit B-12) 100 mcg tablet RxNorm: 219344 1 Tablet(s) PO daily No Start Date 12/07/2017 Inactive simvastatin 40 mg tablet RxNorm: 354517 1 Tablet(s) PO daily No Start Date 11/12/2015 Inactive Xanax 0.25 mg tablet RxNorm: 494504 1 Tablet(s) PO BID PRN No Start Date 11/10/2016 Inactive Glucosamine Chondroit Complx Advan oral RxNorm: oral No Start Date 12/07/2017 Inactive potassium chloride ER 10 mEq tablet,extended release RxNorm: 300753 1 Tablet(s) PO daily No Start Date 08/06/2015 Inactive hydrochlorothiazide 25 mg tablet RxNorm: 720588 1 Tablet(s) PO daily No Start Date 11/12/2015 Inactive Vitamin B RxNorm: PO No Start Date 2017 Inactive alendronate 35 mg tablet RxNorm: 558946 1 Tablet(s) PO weekly No Start Date 06/12/2015 Inactive Maxzide-25mg 37.5 mg-25 mg tablet RxNorm: 06945 1 Tablet(s) PO daily No Start Date 05/15/2015 Inactive Medication Administered Medication Codes Instructions Start Date Status Kenalog 40 mg/mL suspension for injection RxNorm: 0243378 Milliliter 06/15/2018 No longer Active Immunizations Vaccine Codes Date Status Influenza CVX: 141 07/20/2018 completed Influenza CVX: 141 07/15/2017 completed Influenza CVX: 141 2016 completed Pneumococcal CVX: 133 09/05/2015 completed Pneumococcal CVX: 33 06/22/2011 completed Assessments Condition Codes Effective Dates Essential (primary) hypertension ICD-10: I10 ICD-9: 401.1 07/23/2018 Other hypotension ICD-10: I95.89 ICD-9: 458.8 07/23/2018 Hypokalemia ICD-10: E87.6 ICD-9: 276.8 07/10/2018 Other allergic rhinitis ICD-10: J30.89 ICD-9: 477.8 07/10/2018 Other acute sinusitis ICD-10: J01.80 ICD-9: 461.8 06/15/2018 Essential tremor ICD-10: G25.0 ICD-9: 333.1 01/05/2018 Restless legs syndrome ICD-10: G25.81 ICD-9: 333.94 01/05/2018 Essential (primary) hypertension ICD-10: I10 ICD-9: 401.9 12/08/2017 Other muscle spasm ICD-10: M62.838 ICD-9: 728.85 11/13/2017 Pain in left shoulder ICD-10: M25.512 ICD-9: 719.41 11/13/2017 Cervicalgia ICD-10: M54.2 ICD-9: 723.1 11/13/2017 Pain in right shoulder ICD-10: M25.511 ICD-9: 719.41 11/13/2017 Left lower quadrant pain ICD-10: R10.32 ICD-9: 789.04 10/06/2017 Generalized anxiety disorder ICD-10: F41.1 ICD-9: 300.02 10/06/2017 Generalized anxiety disorder ICD-10: F41.1 ICD-9: 300.00 09/16/2017 Encounter for immunization ICD-10: Z23 ICD-9: V04.81 07/15/2017 Abnormal weight loss ICD-10: R63.4 ICD-9: 783.21 05/13/2017 Pain in thoracic spine ICD-10: M54.6 ICD-9: 724.1 04/16/2017 Low back pain ICD-10: M54.5 ICD-9: 724.2 04/16/2017 Gastro-esophageal reflux disease without esophagitis ICD-10 : K21.9 ICD-9: 530.81 01/17/2017 Pain in right upper arm ICD-10: M79.621 ICD-9: 729.5 01/01/2017 Tobacco use ICD-10: Z72.0 ICD-9: 305.1 11/15/2016 Generalized abdominal pain ICD-10: R10.84 ICD-9: 789.07 11/15/2016 Impaired fasting glucose ICD-10: R73.01 ICD-9: 790.21 09/09/2016 Mixed hyperlipidemia ICD-10: E78.2 ICD-9: 272.2 09/09/2016 Dysuria ICD-10: R30.0 ICD-9: 788.1 09/09/2016 Other chest pain ICD-10: R07.89 ICD-9: 786.59 07/11/2016 Encounter for screening mammogram for malignant neoplasm of breast ICD-10: Z12.31 ICD-9: V76.12 06/10/2016 Radiculopathy, lumbar region ICD-10: M54.16 ICD-9: 724.4 04/08/2016 Cramp and spasm ICD-10: R25.2 ICD-9: 729.82 03/07/2016 Hyperlipidemia, unspecified ICD-10: E78.5 ICD-9: 272.4 03/04/2016 Other osteoporosis without current pathological fracture ICD -10: M81.8 ICD-9: 733.00 03/04/2016 Acute maxillary sinusitis, unspecified ICD-10: J01.00 ICD-9: 461.0 09/05/2015 Sciatica, left side ICD-10: M54.32 ICD-9: 724.3 08/07/2015 Unspecified inflammatory spondylopathy, sacral and sacrococcygeal region ICD-10: M46.98 ICD-9: 720.9 08/07/2015 Encounter for follow-up examination after completed treatment for conditions other than malignant neoplasm ICD-10: Z09 ICD-9: V67.59 08/07/2015 Nicotine dependence, unspecified, uncomplicated ICD-10: F17.200 ICD-9: 305.1 08/07/2015 Hyperlipidemia ICD-9: 272.4 05/16/2015 Osteoporosis ICD-9: 733.00 05/16/2015 Tobacco use ICD-9: 305.1 05/16/2015 Reason For Visit Reason For Visit Effective Dates Notes hypertension 07/23/2018 medication follow up 07/10/2018 earache 06/15/2018 hypertension 01/05/2018 hypertension 12/08/2017 arm pain 11/13/2017 hypertension 10/06/2017 citalopram hypertension 09/16/2017 blood pressure followup 07/15/2017 back pain 05/13/2017 back pain 04/16/2017 dyspepsia 01/17/2017 arm pain 01/01/2017 weight loss 12/09/2016 nausea 11/15/2016 blood pressure followup 09/09/2016 chest pain/pressure 07/11/2016 blood pressure followup 06/10/2016 blood pressure followup 04/08/2016 blood pressure followup 03/07/2016 back pain 09/05/2015 Hospital Follow Up 08/07/2015 ~generic 05/16/2015 muscle aches Results Observation Observation Code Item Item Code Result Date Electrolytes Ord62 NA 132 mEq/L 07/10/2018 Electrolytes Ord62 K 4.1 mEq/L 07/10/2018 Electrolytes Ord62 CL 96 mEq/L 07/10/2018 Electrolytes Ord62 CO2 28.0 mEq/L 07/10/2018 Electrolytes Ord62 ANION GAP 12 07/10/2018 Electrolytes Ord62 NA 141 mEq/L 06/23/2018 Electrolytes Ord62 K 4.6 mEq/L 06/23/2018 Electrolytes Ord62 CL 104 mEq/L 06/23/2018 Electrolytes Ord62 CO2 29.0 mEq/L 06/23/2018 Electrolytes Ord62 ANION GAP 13 06/23/2018 Comp Metabolic Qkn826 NA 143 mEq/L 01/19/2018 Comp Metabolic Chw068 K 4.2 mEq/L 01/19/2018 Comp Metabolic Dae564 CL 106 mEq/L 01/19/2018 Comp Metabolic Cjs041 CO2 29.0 mEq/L 01/19/2018 Comp Metabolic Fqd022 ANION GAP 12 01/19/2018 Comp Metabolic Dft380 GLUCOSE 105 mg/dL 01/19/2018 Comp Metabolic Vsn087 Creat 0.8 mg/dL 01/19/2018 Comp Metabolic Gum920 eGFR 70 ml/min/1.73m2 01/19/2018 Comp Metabolic Dxf084 BUN 17 mg/dL 01/19/2018 Comp Metabolic Yrm372 B/C Ratio 20.2 Ratio 01/19/2018 Comp Metabolic Wgd563 CALCIUM 10.1 mg/dL 01/19/2018 Comp Metabolic Heu297 ALK PHOS 50 U/L 01/19/2018 Comp Metabolic Leq718 AST(SGOT) 27 U/L 01/19/2018 Comp Metabolic Iwl369 ALT(SGPT) 24 U/L 01/19/2018 Comp Metabolic Osc047 BILI T 0.5 mg/dL 01/19/2018 Comp Metabolic Kcr740 ALBUMIN 4.1 g/dL 01/19/2018 Comp Metabolic Khy534 TPRO 6.3 g/dL 01/19/2018 Comp Metabolic Eyh542 GLOB 2.2 g/dL 01/19/2018 Comp Metabolic Iuf615 A/G Ratio 1.9 Ratio 01/19/2018 Comp Metabolic Nch038 Osmo 287 mOsmo 01/19/2018 Cbc With Differential Ord2 WBC 8.52 K/ul 01/19/2018 Cbc With Differential Ord2 RBC 4.65 M/ul 01/19/2018 Cbc With Differential Ord2 HGB 14.8 g/dl 01/19/2018 Cbc With Differential Ord2 HCT 44.2 % 01/19/2018 Cbc With Differential Ord2 Neut% 68.9 % 01/19/2018 Cbc With Differential Ord2 Lymph% 21.2 % 01/19/2018 Cbc With Differential Ord2 MCV 95.1 fl 01/19/2018 Cbc With Differential Ord2 [place]% 7.5 % 01/19/2018 Cbc With Differential Ord2 MCH 31.8 pg 01/19/2018 Cbc With Differential Ord2 MCHC 33.5 pg 01/19/2018 Cbc With Differential Ord2 Eos% 1.9 % 01/19/2018 Cbc With Differential Ord2 Baso% 0.5 % 01/19/2018 Cbc With Differential Ord2 PLT 245 K/ul 01/19/2018 Cbc With Differential Ord2 Neut ABS# 5.87 K/ul 01/19/2018 Cbc With Differential Ord2 RDW 14.9 % 01/19/2018 Cbc With Differential Ord2 Lymph ABS# 1.81 K/ul 01/19/2018 Cbc With Differential Ord2 [place] ABS# 0.6 K/ul 01/19/2018 Cbc With Differential Ord2 Eos ABS# 0.2 K/ul 01/19/2018 Cbc With Differential Ord2 Baso ABS# 0.0 K/ul 01/19/2018 Tsh Ord6 TSH (3rd IS) 1.83 uIU/mL 01/19/2018 Lipid Ord30 CHOL 212 mg/dL 01/19/2018 Lipid Ord30 HDL 73.0 mg/dl 01/19/2018 Lipid Ord30 TRIG 110 mg/dL 01/19/2018 Lipid Ord30 LDL 117 mg/dL 01/19/2018 Lipid Ord30 C/HDL 2.9 Ratio 01/19/2018 Comp Metabolic Ime560 NA 141 mEq/L 07/15/2017 Comp Metabolic Yiy039 K 4.1 mEq/L 07/15/2017 Comp Metabolic Rnr813 CL 105 mEq/L 07/15/2017 Comp Metabolic Fiv574 CO2 27.0 mEq/L 07/15/2017 Comp Metabolic Pkm876 ANION GAP 13 07/15/2017 Comp Metabolic Nce411 GLUCOSE 90 mg/dL 07/15/2017 Comp Metabolic Wnv207 Creat 0.8 mg/dL 07/15/2017 Comp Metabolic Lar618 eGFR 77 ml/min/1.73m2 07/15/2017 Comp Metabolic Tgd743 BUN 13 mg/dL 07/15/2017 Comp Metabolic Oay699 B/C Ratio 16.9 Ratio 07/15/2017 Comp Metabolic Bdq989 CALCIUM 9.6 mg/dL 07/15/2017 Comp Metabolic Dop889 ALK PHOS 54 U/L 07/15/2017 Comp Metabolic Aat198 AST(SGOT) 24 U/L 07/15/2017 Comp Metabolic Dwc667 ALT(SGPT) 19 U/L 07/15/2017 Comp Metabolic Zhb891 BILI T 0.7 mg/dL 07/15/2017 Comp Metabolic Wfm232 ALBUMIN 4.2 g/dL 07/15/2017 Comp Metabolic Lbf005 TPRO 6.5 g/dL 07/15/2017 Comp Metabolic Idv696 GLOB 2.4 g/dL 07/15/2017 Comp Metabolic Dgl145 A/G Ratio 1.8 Ratio 07/15/2017 Comp Metabolic Ave344 Osmo 281 mOsmo 07/15/2017 Cbc With Differential Ord2 WBC 7.86 K/ul 07/15/2017 Cbc With Differential Ord2 RBC 4.69 M/ul 07/15/2017 Cbc With Differential Ord2 HGB 15.0 g/dl 07/15/2017 Cbc With Differential Ord2 HCT 44.4 % 07/15/2017 Cbc With Differential Ord2 Neut% 58.6 % 07/15/2017 Cbc With Differential Ord2 MCV 94.7 fl 07/15/2017 Cbc With Differential Ord2 Lymph% 30.8 % 07/15/2017 Cbc With Differential Ord2 [place]% 8.1 % 07/15/2017 Cbc With Differential Ord2 MCH 32.0 pg 07/15/2017 Cbc With Differential Ord2 Eos% 2.0 % 07/15/2017 Cbc With Differential Ord2 MCHC 33.8 pg 07/15/2017 Cbc With Differential Ord2 Baso% 0.5 % 07/15/2017 Cbc With Differential Ord2 PLT 223 K/ul 07/15/2017 Cbc With Differential Ord2 Neut ABS# 4.60 K/ul 07/15/2017 Cbc With Differential Ord2 RDW 14.2 % 07/15/2017 Cbc With Differential Ord2 Lymph ABS# 2.42 K/ul 07/15/2017 Cbc With Differential Ord2 [place] ABS# 0.6 K/ul 07/15/2017 Cbc With Differential Ord2 Eos ABS# 0.2 K/ul 07/15/2017 Cbc With Differential Ord2 Baso ABS# 0.0 K/ul 07/15/2017 Tsh Ord6 hTSH II 2.30 uIU/mL 07/15/2017 Cbc With Differential Ord2 WBC 7.67 K/ul 04/16/2017 Cbc With Differential Ord2 RBC 4.56 M/ul 04/16/2017 Cbc With Differential Ord2 HGB 14.3 g/dl 04/16/2017 Cbc With Differential Ord2 Neut% 56.3 % 04/16/2017 Cbc With Differential Ord2 HCT 43.2 % 04/16/2017 Cbc With Differential Ord2 Lymph% 34.3 % 04/16/2017 Cbc With Differential Ord2 MCV 94.7 fl 04/16/2017 Cbc With Differential Ord2 MCH 31.4 pg 04/16/2017 Cbc With Differential Ord2 [place]% 6.8 % 04/16/2017 Cbc With Differential Ord2 Eos% 2.2 % 04/16/2017 Cbc With Differential Ord2 MCHC 33.1 pg 04/16/2017 Cbc With Differential Ord2 Baso% 0.4 % 04/16/2017 Cbc With Differential Ord2 PLT 207 K/ul 04/16/2017 Cbc With Differential Ord2 Neut ABS# 4.32 K/ul 04/16/2017 Cbc With Differential Ord2 RDW 14.9 % 04/16/2017 Cbc With Differential Ord2 Lymph ABS# 2.63 K/ul 04/16/2017 Cbc With Differential Ord2 [place] ABS# 0.5 K/ul 04/16/2017 Cbc With Differential Ord2 Eos ABS# 0.2 K/ul 04/16/2017 Cbc With Differential Ord2 Baso ABS# 0.0 K/ul 04/16/2017 Tsh Ord6 hTSH II 1.72 uIU/mL 04/16/2017 Comp Metabolic Fsz732 NA 140 mEq/L 04/16/2017 Comp Metabolic Nko037 K 4.1 mEq/L 04/16/2017 Comp Metabolic Ivg533 CL 106 mEq/L 04/16/2017 Comp Metabolic Hpe791 CO2 28.0 mEq/L 04/16/2017 Comp Metabolic Joq504 ANION GAP 10 04/16/2017 Comp Metabolic Dsn648 GLUCOSE 84 mg/dL 04/16/2017 Comp Metabolic Cjx281 Creat 0.9 mg/dL 04/16/2017 Comp Metabolic Tir760 eGFR 66 ml/min/1.73m2 04/16/2017 Comp Metabolic Smp639 BUN 17 mg/dL 04/16/2017 Comp Metabolic Vkf626 B/C Ratio 19.1 Ratio 04/16/2017 Comp Metabolic Iij037 CALCIUM 9.9 mg/dL 04/16/2017 Comp Metabolic Uym318 ALK PHOS 36 U/L 04/16/2017 Comp Metabolic Nsq017 AST(SGOT) 22 U/L 04/16/2017 Comp Metabolic Ghp692 ALT(SGPT) 17 U/L 04/16/2017 Comp Metabolic Lol164 BILI T 0.4 mg/dL 04/16/2017 Comp Metabolic Hbf152 ALBUMIN 4.1 g/dL 04/16/2017 Comp Metabolic Gmz449 TPRO 6.2 g/dL 04/16/2017 Comp Metabolic Tai802 GLOB 2.1 g/dL 04/16/2017 Comp Metabolic Ixq834 A/G Ratio 1.9 Ratio 04/16/2017 Comp Metabolic Smk095 Osmo 280 mOsmo 04/16/2017 Comp Metabolic Sif799 NA 141 mEq/L 11/18/2016 Comp Metabolic Uas553 K 3.7 mEq/L 11/18/2016 Comp Metabolic Ngg342 CL 105 mEq/L 11/18/2016 Comp Metabolic Fpc773 CO2 30.0 mEq/L 11/18/2016 Comp Metabolic Lyq340 ANION GAP 10 11/18/2016 Comp Metabolic Gwr719 GLUCOSE 96 mg/dL 11/18/2016 Comp Metabolic Zws921 Creat 0.8 mg/dL 11/18/2016 Comp Metabolic Kxc978 eGFR 80 ml/min/1.73m2 11/18/2016 Comp Metabolic Gsx665 BUN 21 mg/dL 11/18/2016 Comp Metabolic Hub964 B/C Ratio 28.0 Ratio 11/18/2016 Comp Metabolic Mux015 CALCIUM 9.5 mg/dL 11/18/2016 Comp Metabolic Gso402 ALK PHOS 39 U/L 11/18/2016 Comp Metabolic Cji638 AST(SGOT) 23 U/L 11/18/2016 Comp Metabolic Pxx949 ALT(SGPT) 16 U/L 11/18/2016 Comp Metabolic Ukz204 BILI T 0.7 mg/dL 11/18/2016 Comp Metabolic Igb000 ALBUMIN 4.2 g/dL 11/18/2016 Comp Metabolic Pio293 TPRO 6.3 g/dL 11/18/2016 Comp Metabolic Bod468 GLOB 2.1 g/dL 11/18/2016 Comp Metabolic Kej486 A/G Ratio 2.0 Ratio 11/18/2016 Comp Metabolic Jvq960 Osmo 284 mOsmo 11/18/2016 Cbc With Differential Ord2 WBC 6.83 K/ul 11/18/2016 Cbc With Differential Ord2 RBC 4.56 M/ul 11/18/2016 Cbc With Differential Ord2 HGB 14.3 g/dl 11/18/2016 Cbc With Differential Ord2 Neut% 53.2 % 11/18/2016 Cbc With Differential Ord2 HCT 42.4 % 11/18/2016 Cbc With Differential Ord2 MCV 93.0 fl 11/18/2016 Cbc With Differential Ord2 Lymph% 35.6 % 11/18/2016 Cbc With Differential Ord2 MCH 31.4 pg 11/18/2016 Cbc With Differential Ord2 [place]% 7.2 % 11/18/2016 Cbc With Differential Ord2 MCHC 33.7 pg 11/18/2016 Cbc With Differential Ord2 Eos% 3.4 % 11/18/2016 Cbc With Differential Ord2 Baso% 0.6 % 11/18/2016 Cbc With Differential Ord2 PLT 191 K/ul 11/18/2016 Cbc With Differential Ord2 RDW 14.4 % 11/18/2016 Cbc With Differential Ord2 Neut ABS# 3.64 K/ul 11/18/2016 Cbc With Differential Ord2 Lymph ABS# 2.43 K/ul 11/18/2016 Cbc With Differential Ord2 [place] ABS# 0.5 K/ul 11/18/2016 Cbc With Differential Ord2 Eos ABS# 0.2 K/ul 11/18/2016 Cbc With Differential Ord2 Baso ABS# 0.0 K/ul 11/18/2016 %Hba1C Geh077 % HbA1c 44577-7 5.2 % 09/10/2016 %Hba1C Pkr077 Gluc Ave 103 mg/dL 09/10/2016 Lipid Ord30 CHOL 152 mg/dL 09/10/2016 Lipid Ord30 HDL 68.0 mg/dl 09/10/2016 Lipid Ord30 TRIG 96 mg/dL 09/10/2016 Lipid Ord30 LDL 65 mg/dL 09/10/2016 Lipid Ord30 C/HDL 2.2 Ratio 09/10/2016 Cbc With Differential Ord2 WBC 9.10 K/ul 09/10/2016 Cbc With Differential Ord2 RBC 5.00 M/ul 09/10/2016 Cbc With Differential Ord2 HGB 15.8 g/dl 09/10/2016 Cbc With Differential Ord2 HCT 46.5 % 09/10/2016 Cbc With Differential Ord2 Neut% 62.4 % 09/10/2016 Cbc With Differential Ord2 MCV 93.0 fl 09/10/2016 Cbc With Differential Ord2 Lymph% 27.6 % 09/10/2016 Cbc With Differential Ord2 [place]% 6.4 % 09/10/2016 Cbc With Differential Ord2 MCH 31.6 pg 09/10/2016 Cbc With Differential Ord2 Eos% 3.2 % 09/10/2016 Cbc With Differential Ord2 MCHC 34.0 pg 09/10/2016 Cbc With Differential Ord2 Baso% 0.4 % 09/10/2016 Cbc With Differential Ord2 PLT 226 K/ul 09/10/2016 Cbc With Differential Ord2 Neut ABS# 5.68 K/ul 09/10/2016 Cbc With Differential Ord2 RDW 14.7 % 09/10/2016 Cbc With Differential Ord2 Lymph ABS# 2.51 K/ul 09/10/2016 Cbc With Differential Ord2 [place] ABS# 0.6 K/ul 09/10/2016 Cbc With Differential Ord2 Eos ABS# 0.3 K/ul 09/10/2016 Cbc With Differential Ord2 Baso ABS# 0.0 K/ul 09/10/2016 Tsh Ord6 hTSH II 3.47 uIU/mL 09/10/2016 Comp Metabolic Vjj166 NA 139 mEq/L 09/10/2016 Comp Metabolic Vhh838 K 3.9 mEq/L 09/10/2016 Comp Metabolic Nvv729 CL 100 mEq/L 09/10/2016 Comp Metabolic Pnq282 CO2 28.0 mEq/L 09/10/2016 Comp Metabolic Qra876 ANION GAP 15 09/10/2016 Comp Metabolic Zyl471 GLUCOSE 98 mg/dL 09/10/2016 Comp Metabolic Pzi414 Creat 0.9 mg/dL 09/10/2016 Comp Metabolic Sws343 eGFR 64 ml/min/1.73m2 09/10/2016 Comp Metabolic Vyr226 BUN 13 mg/dL 09/10/2016 Comp Metabolic Yal978 B/C Ratio 14.3 Ratio 09/10/2016 Comp Metabolic Bms805 CALCIUM 10.6 mg/dL 09/10/2016 Comp Metabolic Zlh579 ALK PHOS 52 U/L 09/10/2016 Comp Metabolic Zqc257 AST(SGOT) 25 U/L 09/10/2016 Comp Metabolic Ryd361 ALT(SGPT) 17 U/L 09/10/2016 Comp Metabolic Tep532 BILI T 0.7 mg/dL 09/10/2016 Comp Metabolic Ngq876 ALBUMIN 4.5 g/dL 09/10/2016 Comp Metabolic Kej944 TPRO 7.2 g/dL 09/10/2016 Comp Metabolic Xuh915 GLOB 2.7 g/dL 09/10/2016 Comp Metabolic Ykq602 A/G Ratio 1.6 Ratio 09/10/2016 Comp Metabolic Tyl142 Osmo 278 mOsmo 09/10/2016 Vitamin D 25 Oh Lkc3554 VITAMIN D, 25 HYDROXY 52.49 ng/mL Tsh Ord6 hTSH II 4.17 uIU/mL 03/05/2016 Comp Metabolic Usv815 NA 139 mEq/L 03/05/2016 Comp Metabolic Qnr087 K 3.8 mEq/L 03/05/2016 Comp Metabolic Xal398 CL 102 mEq/L 03/05/2016 Comp Metabolic Kqn404 CO2 30.0 mEq/L 03/05/2016 Comp Metabolic Gwg600 ANION GAP 11 03/05/2016 Comp Metabolic Vhs493 GLUCOSE 96 mg/dL 03/05/2016 Comp Metabolic Gwj455 Creat 0.9 mg/dL 03/05/2016 Comp Metabolic Znl369 eGFR 68 ml/min/1.73m2 03/05/2016 Comp Metabolic Ugn820 BUN 17 mg/dL 03/05/2016 Comp Metabolic Nbx918 B/C Ratio 19.8 Ratio 03/05/2016 Comp Metabolic Qqe758 CALCIUM 9.9 mg/dL 03/05/2016 Comp Metabolic Uaf241 ALK PHOS 42 U/L 03/05/2016 Comp Metabolic Gyn961 AST(SGOT) 26 U/L 03/05/2016 Comp Metabolic Qdv282 ALT(SGPT) 19 U/L 03/05/2016 Comp Metabolic Ypx017 BILI T 0.4 mg/dL 03/05/2016 Comp Metabolic Vof882 ALBUMIN 4.2 g/dL 03/05/2016 Comp Metabolic Efm036 TPRO 6.7 g/dL 03/05/2016 Comp Metabolic Xqr862 GLOB 2.5 g/dL 03/05/2016 Comp Metabolic Vjr652 A/G Ratio 1.7 Ratio 03/05/2016 Comp Metabolic Fvl643 Osmo 279 mOsmo 03/05/2016 Cbc With Differential Ord2 WBC 8.86 K/ul 03/05/2016 Cbc With Differential Ord2 RBC 4.69 M/ul 03/05/2016 Cbc With Differential Ord2 HGB 14.6 g/dl 03/05/2016 Cbc With Differential Ord2 Neut% 53.5 % 03/05/2016 Cbc With Differential Ord2 HCT 44.0 % 03/05/2016 Cbc With Differential Ord2 Lymph% 34.7 % 03/05/2016 Cbc With Differential Ord2 MCV 93.8 fl 03/05/2016 Cbc With Differential Ord2 [place]% 6.7 % 03/05/2016 Cbc With Differential Ord2 MCH 31.1 pg 03/05/2016 Cbc With Differential Ord2 Eos% 4.6 % 03/05/2016 Cbc With Differential Ord2 MCHC 33.2 pg 03/05/2016 Cbc With Differential Ord2 PLT 210 K/ul 03/05/2016 Cbc With Differential Ord2 Baso% 0.5 % 03/05/2016 Cbc With Differential Ord2 RDW 14.7 % 03/05/2016 Cbc With Differential Ord2 Neut ABS# 4.75 K/ul 03/05/2016 Cbc With Differential Ord2 Lymph ABS# 3.07 K/ul 03/05/2016 Cbc With Differential Ord2 [place] ABS# 0.6 K/ul 03/05/2016 Cbc With Differential Ord2 Eos ABS# 0.4 K/ul 03/05/2016 Cbc With Differential Ord2 Baso ABS# 0.0 K/ul 03/05/2016 Cbc With Differential Ord2 New Analyzer Notice Please note new ref ranges starting 11-01-2015 due to implemntation of new five part differential hematolgy analyzer. 03/05/2016 Lipid Ord30 CHOL 144 mg/dL 03/05/2016 Lipid Ord30 HDL 71.0 mg/dl 03/05/2016 Lipid Ord30 TRIG 86 mg/dL 03/05/2016 Lipid Ord30 LDL 56 mg/dL 03/05/2016 Lipid Ord30 C/HDL 2.0 Ratio 03/05/2016 Lipid Ord30 CHOL 143 mg/dL 05/17/2015 Lipid Ord30 HDL 52.0 mg/dl 05/17/2015 Lipid Ord30 TRIG 151 mg/dL 05/17/2015 Lipid Ord30 LDL 61 mg/dL 05/17/2015 Lipid Ord30 C/HDL 2.8 Ratio 05/17/2015 Comp Metabolic Ryu359 NA 136 mEq/L 05/17/2015 Comp Metabolic Laf577 K 3.7 mEq/L 05/17/2015 Comp Metabolic Iws283 CL 100 mEq/L 05/17/2015 Comp Metabolic Qrf352 CO2 29.0 mEq/L 05/17/2015 Comp Metabolic Bcv411 ANION GAP 11 05/17/2015 Comp Metabolic Vhb441 GLUCOSE 95 mg/dL 05/17/2015 Comp Metabolic Ryr691 Creat 0.8 mg/dL 05/17/2015 Comp Metabolic Zev671 eGFR 72 ml/min/1.73m2 05/17/2015 Comp Metabolic Lmv602 BUN 12 mg/dL 05/17/2015 Comp Metabolic Bwv339 B/C Ratio 14.6 Ratio 05/17/2015 Comp Metabolic Tvm558 CALCIUM 10.2 mg/dL 05/17/2015 Comp Metabolic Jrl657 ALK PHOS 36 U/L 05/17/2015 Comp Metabolic Akc438 AST(SGOT) 20 U/L 05/17/2015 Comp Metabolic Qvt171 ALT(SGPT) 11 U/L 05/17/2015 Comp Metabolic Bcf719 BILI T 0.6 mg/dL 05/17/2015 Comp Metabolic Uib069 ALBUMIN 4.3 g/dL 05/17/2015 Comp Metabolic Kmf847 TPRO 6.6 g/dL 05/17/2015 Comp Metabolic Opv031 GLOB 2.3 g/dL 05/17/2015 Comp Metabolic Cjx345 A/G Ratio 1.9 Ratio 05/17/2015 Comp Metabolic Qih365 Osmo 272 mOsmo 05/17/2015 Cbc With Differential Ord2 WBC 8.8 K/uL 05/17/2015 Cbc With Differential Ord2 LYM 2.7 K/uL 05/17/2015 Cbc With Differential Ord2 LYM% 30.7 % 05/17/2015 Cbc With Differential Ord2 NEUT/GRAN 5.5 K/uL 05/17/2015 Cbc With Differential Ord2 NEUT/GRAN % 62.7 % 05/17/2015 Cbc With Differential Ord2 MID 0.6 K/uL 05/17/2015 Cbc With Differential Ord2 MID% 6.6 % 05/17/2015 Cbc With Differential Ord2 RBC 4.81 M/uL 05/17/2015 Cbc With Differential Ord2 HGB 14.9 g/dL 05/17/2015 Cbc With Differential Ord2 HCT 44.3 % 05/17/2015 Cbc With Differential Ord2 MCV 92 fL 05/17/2015 Cbc With Differential Ord2 MCH 31 pg 05/17/2015 Cbc With Differential Ord2 MCHC 34 g/dL 05/17/2015 Cbc With Differential Ord2 PLT 225 K/uL 05/17/2015 Cbc With Differential Ord2 RDW 14.7 % 05/17/2015 Vitamin D 25 Oh Itx0398 VITAMIN D, 25 HYDROXY 50.38 ng/mL Tsh Ord6 hTSH II 3.18 uIU/mL 05/17/2015 Review of Systems System Result Effective Dates Constitutional No recent illness 2017 Constitutional No chills 07/23/2018 Constitutional No diaphoresis 07/23/2018 Constitutional No fever 07/23/2018 Constitutional No malaise 07/23/2018 Eyes No eye discharge 07/23/2018 Eyes No eye erythema 07/23/2018 Cardiovascular No chest pain/pressure 01/2018 Cardiovascular No dyspnea 07/23/2018 Respiratory No productive sputum 2017 Respiratory cigarette smoking 07/23/2018 Gastrointestinal No abdominal pain 2017 Gastrointestinal No constipation 2017 Gastrointestinal No diarrhea 07/23/2018 Genitourinary/Nephrology No dysuria 07/23 Musculoskeletal joint complaint 2017 Dermatologic No rash 07/23/2018 Neurologic No alteration of consciousness 07/23/2018 Neurologic No mental status change 2017 Ears/Nose/Throat/Neck No nasal discharge 07/23/2018 Ears/Nose/Throat/Neck nasal allergies 01/2018 Cardiovascular hypertension 07/23/2018 Cardiovascular No palpitations 2017 Constitutional No recent illness 2017 Constitutional No chills 07/10/2018 Constitutional No diaphoresis 07/10/2018 Constitutional No fever 07/10/2018 Eyes No eye discharge 07/10/2018 Eyes No eye erythema 07/10/2018 Cardiovascular No chest pain/pressure Cardiovascular No dyspnea 07/10/2018 Respiratory No productive sputum 2017 Respiratory cigarette smoking 07/10/2018 Gastrointestinal No abdominal pain 2017 Gastrointestinal No constipation 2017 Gastrointestinal No diarrhea 07/10/2018 Genitourinary/Nephrology No dysuria 07/10 Musculoskeletal joint complaint 2017 Dermatologic No rash 07/10/2018 Neurologic No alteration of consciousness 07/10/2018 Constitutional No malaise 07/10/2018 Ears/Nose/Throat/Neck nasal allergies Ears/Nose/Throat/Neck nasal discharge Ears/Nose/Throat/Neck tinnitus 2017 Ears/Nose/Throat/Neck postnasal drip Ears/Nose/Throat/Neck No sinus congestion 07/10/2018 Ears/Nose/Throat/Neck No sore throat Neurologic No mental status change 2017 Constitutional recent illness 06/15/2018 Constitutional No chills 06/15/2018 Constitutional No diaphoresis 06/15/2018 Constitutional No fever 06/15/2018 Eyes No eye erythema 06/15/2018 Ears/Nose/Throat/Neck nasal allergies Ears/Nose/Throat/Neck nasal discharge Ears/Nose/Throat/Neck postnasal drip Ears/Nose/Throat/Neck sinus congestion Ears/Nose/Throat/Neck No sore throat Cardiovascular No chest pain/pressure Cardiovascular No dyspnea 06/15/2018 Respiratory No chest congestion 2017 Respiratory cough 06/15/2018 Respiratory No dyspnea 06/15/2018 Gastrointestinal No abdominal pain 2017 Gastrointestinal No constipation 2017 Gastrointestinal No diarrhea 06/15/2018 Gastrointestinal No nausea 06/15/2018 Gastrointestinal No vomiting 06/15/2018 Dermatologic No rash 06/15/2018 Neurologic No alteration of consciousness 06/15/2018 Neurologic No mental status change 2017 Constitutional No recent illness 2017 Constitutional No anorexia 01/05/2018 Constitutional No night sweats 2017 Constitutional No chills 01/05/2018 Constitutional No diaphoresis 01/05/2018 Constitutional No fatigue 01/05/2018 Constitutional No fever 01/05/2018 Constitutional No insomnia 01/05/2018 Constitutional No malaise 01/05/2018 Eyes No eye discharge 01/05/2018 Eyes No eye erythema 01/05/2018 Ears/Nose/Throat/Neck No dizziness 2017 Ears/Nose/Throat/Neck No headache 2017 Cardiovascular No chest pain/pressure Cardiovascular No dyspnea 01/05/2018 Respiratory No productive sputum 2017 Respiratory cigarette smoking 01/05/2018 Gastrointestinal No abdominal pain 2017 Gastrointestinal No constipation 2017 Gastrointestinal No diarrhea 01/05/2018 Genitourinary/Nephrology No dysuria 01/05 Musculoskeletal joint complaint 2017 Dermatologic No rash 01/05/2018 Neurologic No alteration of consciousness 01/05/2018 Psychiatric anxiety 01/05/2018 Endocrine No dry or coarse skin 2017 Constitutional No recent illness 2017 Constitutional No anorexia 12/08/2017 Constitutional No night sweats 2017 Constitutional No chills 12/08/2017 Constitutional No diaphoresis 12/08/2017 Constitutional No fatigue 12/08/2017 Constitutional No fever 12/08/2017 Constitutional No insomnia 12/08/2017 Constitutional No malaise 12/08/2017 Eyes No eye discharge 12/08/2017 Eyes No eye erythema 12/08/2017 Ears/Nose/Throat/Neck No dizziness 2017 Ears/Nose/Throat/Neck No headache 2017 Cardiovascular No chest pain/pressure Cardiovascular No dyspnea 12/08/2017 Respiratory No productive sputum 2017 Respiratory cigarette smoking 12/08/2017 Gastrointestinal No abdominal pain 2017 Gastrointestinal No constipation 2017 Gastrointestinal No diarrhea 12/08/2017 Genitourinary/Nephrology No dysuria 12/08 Musculoskeletal joint complaint 2017 Dermatologic No rash 12/08/2017 Neurologic No alteration of consciousness 12/08/2017 Psychiatric anxiety 12/08/2017 Endocrine No dry or coarse skin 2017 Constitutional No recent illness 2017 Constitutional No chills 11/13/2017 Constitutional fatigue 11/13/2017 Constitutional No fever 11/13/2017 Psychiatric No anxiety 11/13/2017 Psychiatric No depression 11/13/2017 Musculoskeletal stiffness 11/13/2017 Cardiovascular No chest pain/pressure Cardiovascular No dyspnea 11/13/2017 Cardiovascular No edema 11/13/2017 Cardiovascular No exercise intolerance Cardiovascular No fatigue 11/13/2017 Cardiovascular No near-syncope/dizziness 11/13/2017 Respiratory No chest tightness 2017 Respiratory No cigarette smoking 2017 Respiratory No cough 11/13/2017 Respiratory No dyspnea 11/13/2017 Respiratory No pedal edema 11/13/2017 Respiratory No snoring 11/13/2017 Respiratory No wheezing 11/13/2017 Gastrointestinal No hemorrhoids 2017 Gastrointestinal No abdominal pain 2017 Gastrointestinal No constipation 2017 Gastrointestinal No diarrhea 11/13/2017 Gastrointestinal No gastroesophageal reflux 11/13/2017 Gastrointestinal No melena 11/13/2017 Gastrointestinal No nausea 11/13/2017 Gastrointestinal No vomiting 11/13/2017 Musculoskeletal muscle weakness 2017 Musculoskeletal myalgias 11/13/2017 Neurologic pain, limb 11/13/2017 Neurologic paresthesia 11/13/2017 Constitutional No recent illness 2016 Constitutional No anorexia 10/06/2017 Constitutional No night sweats 2016 Constitutional No chills 10/06/2017 Constitutional No diaphoresis 10/06/2017 Constitutional fatigue 10/06/2017 Constitutional No fever 10/06/2017 Constitutional insomnia 10/06/2017 Constitutional No malaise 10/06/2017 Constitutional weight loss 10/06/2017 Constitutional No weight gain 10/06/2017 Eyes No eye discharge 10/06/2017 Eyes No eye erythema 10/06/2017 Ears/Nose/Throat/Neck No dizziness 2016 Ears/Nose/Throat/Neck No headache 2016 Cardiovascular No chest pain/pressure Cardiovascular No dyspnea 10/06/2017 Respiratory cigarette smoking 10/06/2017 Respiratory cough 10/06/2017 Gastrointestinal abdominal pain 2016 Gastrointestinal No constipation 2016 Gastrointestinal No diarrhea 10/06/2017 Gastrointestinal No vomiting 10/06/2017 Genitourinary/Nephrology No dysuria 10/06 Musculoskeletal No joint complaint 2016 Dermatologic No rash 10/06/2017 Neurologic No alteration of consciousness 10/06/2017 Psychiatric anxiety 10/06/2017 Psychiatric depression 10/06/2017 Endocrine No cold sensitivity 10/06/2017 Hematologic/Lymphatic No abnormal ecchymoses 10/06/2017 Genitourinary/Nephrology nocturia 2016 Genitourinary/Nephrology urinary frequency 10/06/2017 Constitutional No recent illness 2016 Constitutional No anorexia 09/16/2017 Constitutional No night sweats 2016 Constitutional No chills 09/16/2017 Constitutional No diaphoresis 09/16/2017 Constitutional fatigue 09/16/2017 Constitutional No fever 09/16/2017 Constitutional insomnia 09/16/2017 Constitutional No malaise 09/16/2017 Constitutional weight loss 09/16/2017 Constitutional No weight gain 09/16/2017 Eyes No eye discharge 09/16/2017 Eyes No eye erythema 09/16/2017 Ears/Nose/Throat/Neck No dizziness 2016 Ears/Nose/Throat/Neck No headache 2016 Cardiovascular No chest pain/pressure Cardiovascular No dyspnea 09/16/2017 Respiratory cigarette smoking 09/16/2017 Respiratory cough 09/16/2017 Gastrointestinal abdominal pain 2016 Gastrointestinal No constipation 2016 Gastrointestinal No diarrhea 09/16/2017 Genitourinary/Nephrology No dysuria 09/16 Musculoskeletal No joint complaint 2016 Dermatologic No rash 09/16/2017 Neurologic No alteration of consciousness 09/16/2017 Psychiatric anxiety 09/16/2017 Psychiatric depression 09/16/2017 Endocrine No cold sensitivity 09/16/2017 Hematologic/Lymphatic No abnormal ecchymoses 09/16/2017 Gastrointestinal No vomiting 09/16/2017 Constitutional No recent illness 2016 Constitutional No anorexia 07/15/2017 Constitutional No night sweats 2016 Constitutional No chills 07/15/2017 Constitutional No diaphoresis 07/15/2017 Constitutional fatigue 07/15/2017 Constitutional No fever 07/15/2017 Constitutional insomnia 07/15/2017 Constitutional No malaise 07/15/2017 Constitutional weight loss 07/15/2017 Constitutional No weight gain 07/15/2017 Eyes No eye discharge 07/15/2017 Eyes No eye erythema 07/15/2017 Ears/Nose/Throat/Neck No dizziness 2016 Ears/Nose/Throat/Neck No headache 2016 Cardiovascular No chest pain/pressure Cardiovascular No dyspnea 07/15/2017 Respiratory cough 07/15/2017 Respiratory cigarette smoking 07/15/2017 Gastrointestinal No abdominal pain 2016 Gastrointestinal No constipation 2016 Gastrointestinal No diarrhea 07/15/2017 Genitourinary/Nephrology No dysuria 07/15 Musculoskeletal No joint complaint 2016 Dermatologic No rash 07/15/2017 Neurologic No alteration of consciousness 07/15/2017 Psychiatric depression 07/15/2017 Psychiatric anxiety 07/15/2017 Endocrine No cold sensitivity 07/15/2017 Hematologic/Lymphatic No abnormal ecchymoses 07/15/2017 Constitutional No recent illness 2016 Constitutional anorexia 05/13/2017 Constitutional No night sweats 2016 Constitutional No chills 05/13/2017 Constitutional No diaphoresis 05/13/2017 Constitutional No fatigue 05/13/2017 Constitutional No fever 05/13/2017 Constitutional insomnia 05/13/2017 Constitutional No malaise 05/13/2017 Constitutional No weight loss 05/13/2017 Constitutional No obesity 05/13/2017 Eyes No eye pain 05/13/2017 Eyes No vision change 05/13/2017 Ears/Nose/Throat/Neck No dizziness 2016 Ears/Nose/Throat/Neck No headache 2016 Cardiovascular No chest pain/pressure Cardiovascular No dyspnea 05/13/2017 Cardiovascular No palpitations 2016 Respiratory No chest congestion 2016 Respiratory No chest tightness 2016 Respiratory cigarette smoking 05/13/2017 Respiratory No cough 05/13/2017 Gastrointestinal No constipation 2016 Gastrointestinal No diarrhea 05/13/2017 Genitourinary/Nephrology No anuria/oliguria 05/13/2017 Genitourinary/Nephrology No dysuria 05/13 Musculoskeletal No stiffness 05/13/2017 Musculoskeletal No swelling 05/13/2017 Musculoskeletal No arthralgia(s) 2016 Musculoskeletal No back pain 05/13/2017 Musculoskeletal No bone fracture 2016 Musculoskeletal No bone pain 05/13/2017 Dermatologic No rash 05/13/2017 Dermatologic No sores 05/13/2017 Neurologic No alteration of consciousness 05/13/2017 Neurologic No headache 05/13/2017 Psychiatric anxiety 05/13/2017 Psychiatric No depression 05/13/2017 Endocrine No polyuria 05/13/2017 Endocrine No weakness 05/13/2017 Hematologic/Lymphatic No abnormal ecchymoses 05/13/2017 Hematologic/Lymphatic No abnormal bleeding and bruising 05/13/2017 Allergy/Immunology No anaphylactoid reaction 05/13/2017 Allergy/Immunology No food allergy 2016 Constitutional No recent illness 2016 Constitutional No chills 04/16/2017 Constitutional No diaphoresis 04/16/2017 Constitutional No fever 04/16/2017 Constitutional weight loss 04/16/2017 Eyes No eye erythema 04/16/2017 Ears/Nose/Throat/Neck No nasal allergies 04/16/2017 Ears/Nose/Throat/Neck No nasal discharge 04/16/2017 Cardiovascular No chest pain/pressure Respiratory No cough 04/16/2017 Respiratory No dyspnea 04/16/2017 Gastrointestinal No abdominal pain 2016 Musculoskeletal back pain 04/16/2017 Neurologic No alteration of consciousness 04/16/2017 Neurologic No mental status change 2016 Constitutional No recent illness 2016 Constitutional anorexia 01/17/2017 Constitutional No night sweats 2016 Constitutional No chills 01/17/2017 Constitutional No diaphoresis 01/17/2017 Constitutional No fatigue 01/17/2017 Constitutional No fever 01/17/2017 Constitutional insomnia 01/17/2017 Constitutional No malaise 01/17/2017 Constitutional weight gain 01/17/2017 Constitutional No weight loss 01/17/2017 Constitutional No obesity 01/17/2017 Eyes No eye pain 01/17/2017 Eyes No vision change 01/17/2017 Ears/Nose/Throat/Neck No dizziness 2016 Ears/Nose/Throat/Neck No headache 2016 Cardiovascular No chest pain/pressure Cardiovascular No dyspnea 01/17/2017 Cardiovascular No palpitations 2016 Respiratory No chest congestion 2016 Respiratory No chest tightness 2016 Gastrointestinal No constipation 2016 Gastrointestinal No diarrhea 01/17/2017 Respiratory No cough 01/17/2017 Respiratory cigarette smoking 01/17/2017 Genitourinary/Nephrology No dysuria 01/17 Genitourinary/Nephrology No anuria/oliguria 01/17/2017 Musculoskeletal No stiffness 01/17/2017 Musculoskeletal No swelling 01/17/2017 Musculoskeletal No arthralgia(s) 2016 Musculoskeletal No back pain 01/17/2017 Musculoskeletal No bone fracture 2016 Musculoskeletal No bone pain 01/17/2017 Dermatologic No rash 01/17/2017 Dermatologic No sores 01/17/2017 Neurologic No alteration of consciousness 01/17/2017 Neurologic No headache 01/17/2017 Psychiatric anxiety 01/17/2017 Psychiatric No depression 01/17/2017 Endocrine No weakness 01/17/2017 Endocrine No polyuria 01/17/2017 Hematologic/Lymphatic No abnormal ecchymoses 01/17/2017 Hematologic/Lymphatic No abnormal bleeding and bruising 01/17/2017 Allergy/Immunology No anaphylactoid reaction 01/17/2017 Allergy/Immunology No food allergy 2016 Constitutional No recent illness 2016 Constitutional No chills 01/01/2017 Constitutional No fever 01/01/2017 Eyes No eye erythema 01/01/2017 Ears/Nose/Throat/Neck No nasal discharge 01/01/2017 Cardiovascular No chest pain/pressure Cardiovascular No dyspnea 01/01/2017 Respiratory No cough 01/01/2017 Respiratory No dyspnea 01/01/2017 Musculoskeletal joint complaint 2016 Neurologic No alteration of consciousness 01/01/2017 Neurologic No mental status change 2016 Gastrointestinal No abdominal pain 2016 Constitutional No recent illness 2016 Constitutional No anorexia 12/09/2016 Constitutional night sweats 12/09/2016 Constitutional No chills 12/09/2016 Constitutional No diaphoresis 12/09/2016 Constitutional No fatigue 12/09/2016 Constitutional No fever 12/09/2016 Constitutional No insomnia 12/09/2016 Constitutional No malaise 12/09/2016 Constitutional No weight loss 12/09/2016 Constitutional No weight gain 12/09/2016 Constitutional No obesity 12/09/2016 Eyes No vision change 12/09/2016 Eyes No eye pain 12/09/2016 Ears/Nose/Throat/Neck No dizziness 2016 Ears/Nose/Throat/Neck No headache 2016 Cardiovascular No dyspnea 12/09/2016 Cardiovascular No claudication 2016 Cardiovascular No chest pain/pressure Cardiovascular No exercise intolerance Cardiovascular fatigue 12/09/2016 Respiratory cigarette smoking 12/09/2016 Respiratory No chest tightness 2016 Respiratory No chest congestion 2016 Respiratory No cough 12/09/2016 Gastrointestinal No constipation 2016 Gastrointestinal No diarrhea 12/09/2016 Gastrointestinal abdominal pain 2016 Gastrointestinal No nausea 12/09/2016 Gastrointestinal No vomiting 12/09/2016 Genitourinary/Nephrology No anuria/oliguria 12/09/2016 Genitourinary/Nephrology No dysuria 12/09 Musculoskeletal stiffness 12/09/2016 Musculoskeletal swelling 12/09/2016 Musculoskeletal arthralgia(s) 12/09/2016 Dermatologic No rash 12/09/2016 Dermatologic No sores 12/09/2016 Neurologic No alteration of consciousness 12/09/2016 Neurologic No mental status change 2016 Psychiatric anxiety 12/09/2016 Psychiatric depression 12/09/2016 Endocrine No polydipsia 12/09/2016 Endocrine No polyuria 12/09/2016 Hematologic/Lymphatic No abnormal ecchymoses 12/09/2016 Hematologic/Lymphatic No abnormal bleeding and bruising 12/09/2016 Constitutional No recent illness 2016 Constitutional anorexia 11/15/2016 Constitutional No night sweats 2016 Constitutional No chills 11/15/2016 Constitutional No diaphoresis 11/15/2016 Constitutional No fatigue 11/15/2016 Constitutional No fever 11/15/2016 Constitutional No insomnia 11/15/2016 Constitutional No malaise 11/15/2016 Constitutional weight loss 11/15/2016 Constitutional No weight gain 11/15/2016 Eyes No eye discharge 11/15/2016 Eyes No eye erythema 11/15/2016 Ears/Nose/Throat/Neck dizziness 2016 Ears/Nose/Throat/Neck No headache 2016 Cardiovascular No chest pain/pressure Cardiovascular No dyspnea 11/15/2016 Respiratory No productive sputum 2016 Respiratory cigarette smoking 11/15/2016 Gastrointestinal abdominal pain 2016 Gastrointestinal No constipation 2016 Gastrointestinal No diarrhea 11/15/2016 Genitourinary/Nephrology No dysuria 11/15 Musculoskeletal joint complaint 2016 Dermatologic No rash 11/15/2016 Neurologic No alteration of consciousness 11/15/2016 Psychiatric anxiety 11/15/2016 Endocrine No dry or coarse skin 2016 Gastrointestinal gastroesophageal reflux 11/15/2016 Musculoskeletal myalgias 11/15/2016 Constitutional No recent illness 2015 Constitutional No anorexia 09/09/2016 Constitutional No night sweats 2015 Constitutional No diaphoresis 09/09/2016 Constitutional No chills 09/09/2016 Constitutional No fatigue 09/09/2016 Constitutional No fever 09/09/2016 Constitutional No insomnia 09/09/2016 Constitutional No malaise 09/09/2016 Constitutional No weight loss 09/09/2016 Constitutional No weight gain 09/09/2016 Eyes No eye discharge 09/09/2016 Eyes No eye erythema 09/09/2016 Ears/Nose/Throat/Neck No dizziness 2015 Ears/Nose/Throat/Neck No headache 2015 Cardiovascular No chest pain/pressure Cardiovascular No dyspnea 09/09/2016 Respiratory cigarette smoking 09/09/2016 Respiratory No productive sputum 2015 Gastrointestinal No abdominal pain 2015 Gastrointestinal No constipation 2015 Gastrointestinal No diarrhea 09/09/2016 Genitourinary/Nephrology No dysuria 09/09 Musculoskeletal joint complaint 2015 Dermatologic No rash 09/09/2016 Neurologic No alteration of consciousness 09/09/2016 Psychiatric anxiety 09/09/2016 Endocrine No dry or coarse skin 2015 Constitutional No chills 07/11/2016 Constitutional No fever 07/11/2016 Eyes No vision change 07/11/2016 Ears/Nose/Throat/Neck No nasal allergies 07/11/2016 Ears/Nose/Throat/Neck No nasal discharge 07/11/2016 Cardiovascular chest pain/pressure 2015 Respiratory No chest congestion 2015 Respiratory cough 07/11/2016 Respiratory No dyspnea 07/11/2016 Gastrointestinal No abdominal pain 2015 Gastrointestinal No constipation 2015 Gastrointestinal No diarrhea 07/11/2016 Musculoskeletal No joint complaint 2015 Dermatologic No rash 07/11/2016 Dermatologic No sores 07/11/2016 Eyes No eye erythema 07/11/2016 Respiratory cigarette smoking 07/11/2016 Gastrointestinal nausea 07/11/2016 Gastrointestinal No vomiting 07/11/2016 Neurologic No alteration of consciousness 07/11/2016 Neurologic No mental status change 2015 Constitutional No recent illness 2015 Constitutional No anorexia 06/10/2016 Constitutional No night sweats 2015 Constitutional No chills 06/10/2016 Constitutional No diaphoresis 06/10/2016 Constitutional No fatigue 06/10/2016 Constitutional No fever 06/10/2016 Constitutional No insomnia 06/10/2016 Constitutional No malaise 06/10/2016 Constitutional No weight loss 06/10/2016 Constitutional No weight gain 06/10/2016 Constitutional No obesity 06/10/2016 Eyes No vision change 06/10/2016 Ears/Nose/Throat/Neck No headache 2015 Ears/Nose/Throat/Neck No nasal allergies 06/10/2016 Ears/Nose/Throat/Neck No nasal discharge 06/10/2016 Ears/Nose/Throat/Neck No otalgia 2015 Ears/Nose/Throat/Neck No otitis media Ears/Nose/Throat/Neck No sinus congestion 06/10/2016 Cardiovascular No chest pain/pressure Cardiovascular No dyspnea 06/10/2016 Cardiovascular No edema 06/10/2016 Respiratory No productive sputum 2015 Respiratory No chest congestion 2015 Respiratory No chest tightness 2015 Respiratory cigarette smoking 06/10/2016 Respiratory cough 06/10/2016 Respiratory No dyspnea on exertion 2015 Respiratory No dyspnea 06/10/2016 Gastrointestinal No abdominal pain 2015 Gastrointestinal No constipation 2015 Gastrointestinal No diarrhea 06/10/2016 Genitourinary/Nephrology No dysuria 06/10 Musculoskeletal No joint complaint 2015 Musculoskeletal No muscle weakness 2015 Musculoskeletal myalgias 06/10/2016 Dermatologic No rash 06/10/2016 Dermatologic No sores 06/10/2016 Neurologic paresthesia 06/10/2016 Psychiatric No anxiety 06/10/2016 Psychiatric No depression 06/10/2016 Constitutional No recent illness 2015 Constitutional No anorexia 04/08/2016 Constitutional No night sweats 2015 Constitutional No chills 04/08/2016 Constitutional No diaphoresis 04/08/2016 Constitutional No fatigue 04/08/2016 Constitutional No fever 04/08/2016 Constitutional No insomnia 04/08/2016 Constitutional No malaise 04/08/2016 Constitutional No weight loss 04/08/2016 Constitutional No weight gain 04/08/2016 Constitutional No obesity 04/08/2016 Cardiovascular No chest pain/pressure Cardiovascular No edema 04/08/2016 Cardiovascular No dyspnea 04/08/2016 Ears/Nose/Throat/Neck No nasal allergies 04/08/2016 Ears/Nose/Throat/Neck No nasal discharge 04/08/2016 Ears/Nose/Throat/Neck No headache 2015 Ears/Nose/Throat/Neck No otalgia 2015 Ears/Nose/Throat/Neck No otitis media Ears/Nose/Throat/Neck No sinus congestion 04/08/2016 Respiratory No dyspnea 04/08/2016 Respiratory No dyspnea on exertion 2015 Respiratory cough 04/08/2016 Respiratory cigarette smoking 04/08/2016 Respiratory No chest tightness 2015 Respiratory No chest congestion 2015 Respiratory No productive sputum 2015 Gastrointestinal No diarrhea 04/08/2016 Gastrointestinal No constipation 2015 Gastrointestinal No abdominal pain 2015 Genitourinary/Nephrology No dysuria 04/08 Musculoskeletal myalgias 04/08/2016 Musculoskeletal No muscle weakness 2015 Musculoskeletal No joint complaint 2015 Neurologic paresthesia 04/08/2016 Dermatologic No sores 04/08/2016 Dermatologic No rash 04/08/2016 Psychiatric No anxiety 04/08/2016 Psychiatric No depression 04/08/2016 Eyes No vision change 04/08/2016 Constitutional No recent illness 2015 Constitutional No anorexia 03/07/2016 Constitutional No night sweats 2015 Constitutional No chills 03/07/2016 Constitutional No diaphoresis 03/07/2016 Constitutional No fatigue 03/07/2016 Constitutional No fever 03/07/2016 Constitutional No insomnia 03/07/2016 Constitutional No malaise 03/07/2016 Constitutional No weight loss 03/07/2016 Constitutional No weight gain 03/07/2016 Constitutional No obesity 03/07/2016 Eyes No vision change 03/07/2016 Ears/Nose/Throat/Neck No nasal allergies 03/07/2016 Ears/Nose/Throat/Neck No nasal discharge 03/07/2016 Ears/Nose/Throat/Neck No dizziness 2015 Cardiovascular No chest pain/pressure Respiratory No cough 03/07/2016 Respiratory No cigarette smoking 2015 Respiratory No chest tightness 2015 Respiratory No chest congestion 2015 Respiratory No dyspnea on exertion 2015 Respiratory No dyspnea 03/07/2016 Gastrointestinal No abdominal pain 2015 Gastrointestinal No constipation 2015 Gastrointestinal No diarrhea 03/07/2016 Genitourinary/Nephrology No dysuria 03/07 Musculoskeletal muscle weakness 2015 Musculoskeletal No myalgias 03/07/2016 Musculoskeletal No joint complaint 2015 Dermatologic No rash 03/07/2016 Dermatologic No sores 03/07/2016 Neurologic dyskinesia or tremor 2015 Neurologic No gait abnormality 2015 Neurologic No mental status change 2015 Neurologic No dizziness 03/07/2016 Neurologic paresthesia 03/07/2016 Psychiatric No anxiety 03/07/2016 Psychiatric No depression 03/07/2016 Constitutional No recent illness 2014 Constitutional No anorexia 09/05/2015 Constitutional No night sweats 2014 Constitutional No chills 09/05/2015 Constitutional No diaphoresis 09/05/2015 Constitutional No fatigue 09/05/2015 Constitutional No fever 09/05/2015 Constitutional No insomnia 09/05/2015 Constitutional No malaise 09/05/2015 Constitutional No weight loss 09/05/2015 Constitutional No weight gain 09/05/2015 Eyes No eye discharge 09/05/2015 Eyes No eye erythema 09/05/2015 Ears/Nose/Throat/Neck No dizziness 2014 Ears/Nose/Throat/Neck No headache 2014 Cardiovascular No chest pain/pressure Cardiovascular No dyspnea 09/05/2015 Cardiovascular No edema 09/05/2015 Respiratory No chest congestion 2014 Respiratory cigarette smoking 09/05/2015 Respiratory cough 09/05/2015 Respiratory No dyspnea on exertion 2014 Gastrointestinal No abdominal pain 2014 Gastrointestinal No constipation 2014 Gastrointestinal No diarrhea 09/05/2015 Genitourinary/Nephrology No dysuria 09/05 Musculoskeletal back pain 09/05/2015 Musculoskeletal joint complaint 2014 Musculoskeletal sciatica 09/05/2015 Dermatologic No rash 09/05/2015 Neurologic No alteration of consciousness 09/05/2015 Psychiatric anxiety 09/05/2015 Psychiatric depression 09/05/2015 Endocrine No dry or coarse skin 2014 Ears/Nose/Throat/Neck nasal allergies Ears/Nose/Throat/Neck nasal discharge Ears/Nose/Throat/Neck sinus congestion Ears/Nose/Throat/Neck No otalgia 2014 Ears/Nose/Throat/Neck No sore throat Constitutional No recent illness 2014 Constitutional No anorexia 08/07/2015 Constitutional No night sweats 2014 Constitutional No chills 08/07/2015 Constitutional No diaphoresis 08/07/2015 Constitutional No fatigue 08/07/2015 Constitutional No fever 08/07/2015 Constitutional No insomnia 08/07/2015 Constitutional No malaise 08/07/2015 Constitutional No weight loss 08/07/2015 Constitutional No weight gain 08/07/2015 Eyes No eye discharge 08/07/2015 Eyes No eye erythema 08/07/2015 Ears/Nose/Throat/Neck No dizziness 2014 Ears/Nose/Throat/Neck No headache 2014 Cardiovascular No chest pain/pressure Cardiovascular No dyspnea 08/07/2015 Cardiovascular No edema 08/07/2015 Respiratory No chest congestion 2014 Respiratory cigarette smoking 08/07/2015 Respiratory cough 08/07/2015 Respiratory No dyspnea on exertion 2014 Gastrointestinal No abdominal pain 2014 Gastrointestinal No constipation 2014 Gastrointestinal No diarrhea 08/07/2015 Genitourinary/Nephrology No dysuria 08/07 Musculoskeletal joint complaint 2014 Dermatologic No rash 08/07/2015 Neurologic No alteration of consciousness 08/07/2015 Psychiatric anxiety 08/07/2015 Psychiatric depression 08/07/2015 Endocrine No dry or coarse skin 2014 Musculoskeletal back pain 08/07/2015 Musculoskeletal sciatica 08/07/2015 Constitutional No recent illness 2014 Constitutional No anorexia 05/16/2015 Constitutional No night sweats 2014 Constitutional No chills 05/16/2015 Constitutional No diaphoresis 05/16/2015 Constitutional No fatigue 05/16/2015 Constitutional No fever 05/16/2015 Constitutional No insomnia 05/16/2015 Constitutional No malaise 05/16/2015 Constitutional No weight loss 05/16/2015 Constitutional No weight gain 05/16/2015 Eyes No eye discharge 05/16/2015 Eyes No eye erythema 05/16/2015 Ears/Nose/Throat/Neck No dizziness 2014 Ears/Nose/Throat/Neck No headache 2014 Cardiovascular No chest pain/pressure Cardiovascular No dyspnea 05/16/2015 Cardiovascular No edema 05/16/2015 Respiratory No chest congestion 2014 Respiratory cough 05/16/2015 Respiratory No dyspnea on exertion 2014 Respiratory cigarette smoking 05/16/2015 Gastrointestinal No abdominal pain 2014 Gastrointestinal No constipation 2014 Gastrointestinal No diarrhea 05/16/2015 Genitourinary/Nephrology No dysuria 05/16 Musculoskeletal joint complaint 2014 Dermatologic No rash 05/16/2015 Neurologic No alteration of consciousness 05/16/2015 Psychiatric anxiety 05/16/2015 Psychiatric depression 05/16/2015 Endocrine No dry or coarse skin 2014 Physical Exam Exam Name System Name Item Name Status Result Effective Dates Notes Full Exam - General 1994 Constitutional general appearance Overall: well developed 07/23/2018 None Full Exam - General 1994 Constitutional general appearance Overall: in no acute distress 07/23/2018 None Full Exam - General 1994 Constitutional general appearance Overall: well nourished 07/23/2018 None Full Exam - General 1994 Constitutional general appearance Stature/Body Habitus: short stature 07/23/2018 None Full Exam - General 1994 Constitutional general appearance Stature/Body Habitus: kyphosis 07/23/2018 None Full Exam - General 1994 Constitutional general appearance Nourishment: thin 07/23/2018 None Full Exam - General 1994 Constitutional general appearance Hygiene/Attention to Grooming: good hygiene 07/23/2018 None Full Exam - General 1994 Eyes conjunctiva /eyelids Overall: conjunctiva clear 07/23/2018 None Full Exam - General 1994 Eyes conjunctiva /eyelids Overall: cornea clear 07/23/2018 None Full Exam - General 1994 Eyes conjunctiva /eyelids Overall: eyelids normal 07/23/2018 None Full Exam - General 1994 Ears/Nose/Throat lips/teeth/gingiva Teeth: missing teeth 07/23/2018 None Full Exam - General 1994 Ears/Nose/Throat lips/teeth/gingiva Teeth: dental caries 07/23/2018 None Full Exam - General 1994 Ears/Nose/Throat oral cavity/pharynx/larynx Overall: oral mucosa clear 07/23/2018 None Full Exam - General 1994 Respiratory auscultation Overall: breath sounds clear bilaterally 07/23/2018 None Full Exam - General 1994 Respiratory respiratory effort/rhythm Overall: no retractions 07/23/2018 None Full Exam - General 1994 Respiratory respiratory effort/rhythm Overall: normal rate 07/23/2018 None Full Exam - General 1994 Cardiovascular auscultation of heart Overall: regular rate 07/23/2018 None Full Exam - General 1994 Cardiovascular auscultation of heart Overall: normal heart sounds 07/23/2018 None Full Exam - General 1994 Musculoskeletal gait and station Overall: normal gait 07/23/2018 None Full Exam - General 1994 Musculoskeletal gait and station Overall: normal station 07/23/2018 None Full Exam - General 1994 Musculoskeletal head and neck Overall: head atraumatic 07/23/2018 None Full Exam - General 1994 Neurologic gait Overall: no ataxia, no unsteadiness 07/23/2018 None Full Exam - General 1994 Neurologic motor Overall: normal bulk, tone 07/23/2018 None Full Exam - General 1994 Psychiatric orientation/consciousness Overall: oriented to person, place and time 07/23/2018 None Full Exam - General 1994 Psychiatric mood and affect Overall: normal mood and affect 07/23/2018 None Full Exam - General 1994 Constitutional general appearance Stature/Body Habitus: short stature 07/10/2018 None Full Exam - General 1994 Constitutional general appearance Stature/Body Habitus: kyphosis 07/10/2018 None Full Exam - General 1994 Constitutional general appearance Nourishment: thin 07/10/2018 None Full Exam - General 1994 Constitutional general appearance Hygiene/Attention to Grooming: good hygiene 07/10/2018 None Full Exam - General 1994 Eyes conjunctiva /eyelids Overall: conjunctiva clear 07/10/2018 None Full Exam - General 1994 Eyes conjunctiva /eyelids Overall: cornea clear 07/10/2018 None Full Exam - General 1994 Eyes conjunctiva /eyelids Overall: eyelids normal 07/10/2018 None Full Exam - General 1994 Ears/Nose/Throat otoscopic exam External auditory canal: partial cerumen occlusion 07/10/2018 None Full Exam - General 1994 Ears/Nose/Throat lips/teeth/gingiva Teeth: missing teeth 07/10/2018 None Full Exam - General 1994 Ears/Nose/Throat lips/teeth/gingiva Teeth: dental caries 07/10/2018 None Full Exam - General 1994 Ears/Nose/Throat oral cavity/pharynx/larynx Overall: oral mucosa clear 07/10/2018 None Full Exam - General 1994 Respiratory auscultation Overall: breath sounds clear bilaterally 07/10/2018 None Full Exam - General 1994 Respiratory respiratory effort/rhythm Overall: no retractions 07/10/2018 None Full Exam - General 1994 Respiratory respiratory effort/rhythm Overall: normal rate 07/10/2018 None Full Exam - General 1994 Cardiovascular auscultation of heart Overall: regular rate 07/10/2018 None Full Exam - General 1994 Cardiovascular auscultation of heart Overall: normal heart sounds 07/10/2018 None Full Exam - General 1994 Cardiovascular auscultation of heart Overall: no murmurs 07/10/2018 None Full Exam - General 1994 Abdomen abdominal exam Overall: normal bowel sounds 07/10/2018 None Full Exam - General 1994 Musculoskeletal gait and station Overall: normal gait 07/10/2018 None Full Exam - General 1994 Musculoskeletal gait and station Overall: normal station 07/10/2018 None Full Exam - General 1994 Musculoskeletal head and neck Overall: head atraumatic 07/10/2018 None Full Exam - General 1994 Neurologic mental status Overall: alert 07/10/2018 None Full Exam - General 1994 Neurologic mental status Overall: oriented 07/10/2018 None Full Exam - General 1994 Neurologic gait Overall: no ataxia, no unsteadiness 07/10/2018 None Full Exam - General 1994 Neurologic motor Overall: normal bulk, tone 07/10/2018 None Full Exam - General 1994 Psychiatric orientation/consciousness Overall: oriented to person, place and time 07/10/2018 None Full Exam - General 1994 Constitutional general appearance Overall: well developed 07/10/2018 None Full Exam - General 1994 Constitutional general appearance Overall: in no acute distress 07/10/2018 None Full Exam - General 1994 Constitutional general appearance Overall: well nourished 07/10/2018 None Full Exam - General 1994 Ears/Nose/Throat otoscopic exam Tympanic membrane: air- fluid level 07/10/2018 None Full Exam - General 1994 Lymphatic neck nodes Overall: anterior cervical chain benign 07/10/2018 None Full Exam - General 1994 Lymphatic neck nodes Overall: posterior cervical chain benign 07/10/2018 None Full Exam - ENT Constitutional general appearance Overall: well nourished 06/15/2018 None Full Exam - ENT Constitutional general appearance Overall: well developed 06/15/2018 None Full Exam - ENT Constitutional general appearance Overall: in no acute distress 06/15/2018 None Full Exam - ENT Ears/Nose/Throat otoscopic exam Overall: external auditory canals normal 06/15/2018 None Full Exam - ENT Ears/Nose/Throat otoscopic exam Left tympanic membrane: air -fluid level 06/15/2018 None Full Exam - ENT Ears/Nose/Throat otoscopic exam Right tympanic membrane: air-fluid level 06/15/2018 None Full Exam - ENT Ears/Nose/Throat nasal mucosa, septum, turbinates Drainage: clear 06/15/2018 None Full Exam - ENT Ears/Nose/Throat nasal mucosa, septum, turbinates Drainage: yellow 06/15/2018 None Full Exam - ENT Ears/Nose/Throat lips/ teeth/gingiva Overall: benign lips 06/15/2018 None Full Exam - ENT Ears/Nose/Throat oropharynx Posterior Pharynx: clear post nasal drainage 06/15/2018 None Full Exam - ENT Face and Head palpation Left maxillary sinus: tender 06/15/2018 None Full Exam - ENT Face and Head palpation Right maxillary sinus: tender 06/15/2018 None Full Exam - ENT Respiratory inspection Overall: no retractions 06/15/2018 None Full Exam - ENT Respiratory inspection Overall: normal rate None Full Exam - ENT Respiratory auscultation Overall: breath sounds clear bilaterally 06/15/2018 None Full Exam - ENT Cardiovascular auscultation of heart Overall: regular rate 06/15/2018 None Full Exam - ENT Cardiovascular auscultation of heart Overall: normal heart sounds 06/15/2018 None Full Exam - ENT Lymphatic palpation of lymph nodes Overall: anterior cervical chain benign 06/15/2018 None Full Exam - ENT Lymphatic palpation of lymph nodes Overall: posterior cervical chain benign 06/15/2018 None Full Exam - ENT Neurologic mood and affect Overall: normal mood 06/15/2018 None Full Exam - ENT Neurologic mood and affect Overall: normal affect 06/15/2018 None Full Exam - ENT Neurologic orientation Overall: oriented to person, place and time 06/15/2018 None Full Exam - General 1994 Constitutional general appearance Stature/Body Habitus: short stature 01/05/2018 None Full Exam - General 1994 Constitutional general appearance Stature/Body Habitus: kyphosis 01/05/2018 None Full Exam - General 1994 Constitutional general appearance Nourishment: thin 01/05/2018 None Full Exam - General 1994 Constitutional general appearance Evidence of Distress: in no acute distress 01/05/2018 None Full Exam - General 1994 Constitutional general appearance Hygiene/Attention to Grooming: good hygiene 01/05/2018 None Full Exam - General 1994 Eyes conjunctiva /eyelids Overall: conjunctiva clear 01/05/2018 None Full Exam - General 1994 Eyes conjunctiva /eyelids Overall: cornea clear 01/05/2018 None Full Exam - General 1994 Eyes conjunctiva /eyelids Overall: eyelids normal 01/05/2018 None Full Exam - General 1994 Eyes pupils and irises Overall: pupils equal, round, reactive to light and accomodation 01/05/2018 None Full Exam - General 1994 Ears/Nose/Throat external ear Overall: normal appearance 01/05/2018 None Full Exam - General 1994 Ears/Nose/Throat external ear Overall: no masses 01/05/2018 None Full Exam - General 1994 Ears/Nose/Throat external ear Overall: normal mastoids 01/05/2018 None Full Exam - General 1994 Ears/Nose/Throat otoscopic exam Overall: tympanic membranes clear 01/05/2018 None Full Exam - General 1994 Ears/Nose/Throat otoscopic exam External auditory canal: partial cerumen occlusion 01/05/2018 None Full Exam - General 1994 Ears/Nose/Throat lips/teeth/gingiva Teeth: missing teeth 01/05/2018 None Full Exam - General 1994 Ears/Nose/Throat lips/teeth/gingiva Teeth: dental caries 01/05/2018 None Full Exam - General 1994 Ears/Nose/Throat oral cavity/pharynx/larynx Overall: oral mucosa clear 01/05/2018 None Full Exam - General 1994 Respiratory auscultation Overall: breath sounds clear bilaterally 01/05/2018 None Full Exam - General 1994 Respiratory respiratory effort/rhythm Overall: no retractions 01/05/2018 None Full Exam - General 1994 Respiratory respiratory effort/rhythm Overall: normal rate 01/05/2018 None Full Exam - General 1994 Cardiovascular auscultation of heart Overall: regular rate 01/05/2018 None Full Exam - General 1994 Cardiovascular auscultation of heart Overall: normal heart sounds 01/05/2018 None Full Exam - General 1994 Cardiovascular auscultation of heart Overall: no murmurs 01/05/2018 None Full Exam - General 1994 Abdomen abdominal exam Overall: no tenderness 01/05/2018 None Full Exam - General 1994 Abdomen abdominal exam Overall: normal bowel sounds 01/05/2018 None Full Exam - General 1994 Abdomen abdominal exam Upper quadrant: non-tender to palpation 01/05/2018 None Full Exam - General 1994 Abdomen abdominal exam Upper quadrant: no guarding 01/05/2018 None Full Exam - General 1994 Abdomen abdominal exam Upper quadrant: no rebound tenderness 01/05/2018 None Full Exam - General 1994 Abdomen abdominal exam Upper quadrant: no mass lesions 01/05/2018 None Full Exam - General 1994 Abdomen abdominal exam Lower quadrant: non-tender to palpation 01/05/2018 None Full Exam - General 1994 Abdomen abdominal exam Lower quadrant: no guarding 01/05/2018 None Full Exam - General 1994 Abdomen abdominal exam Lower quadrant: no rebound tenderness 01/05/2018 None Full Exam - General 1994 Abdomen abdominal exam Lower quadrant: no mass lesions 01/05/2018 None Full Exam - General 1994 Abdomen abdominal exam Epigastric: non-tender to palpation 01/05/2018 None Full Exam - General 1994 Abdomen abdominal exam Suprapubic: non-tender to palpation 01/05/2018 None Full Exam - General 1994 Abdomen abdominal exam Periumbilical: non-tender to palpation 01/05/2018 None Full Exam - General 1994 Lymphatic neck nodes Overall: anterior cervical chain benign 01/05/2018 None Full Exam - General 1994 Lymphatic neck nodes Overall: posterior cervical chain benign 01/05/2018 None Full Exam - General 1994 Musculoskeletal gait and station Overall: normal gait 01/05/2018 None Full Exam - General 1994 Musculoskeletal gait and station Overall: normal station 01/05/2018 None Full Exam - General 1994 Musculoskeletal head and neck Overall: head atraumatic 01/05/2018 None Full Exam - General 1994 Musculoskeletal head and neck Overall: TMJ benign 01/05/2018 None Full Exam - General 1994 Musculoskeletal head and neck Overall: cervical spine benign 01/05/2018 None Full Exam - General 1994 Neurologic mental status Overall: alert 01/05/2018 None Full Exam - General 1994 Neurologic mental status Overall: oriented 01/05/2018 None Full Exam - General 1994 Neurologic gait Overall: no ataxia, no unsteadiness 01/05/2018 None Full Exam - General 1994 Neurologic motor Overall: normal bulk, tone 01/05/2018 None Full Exam - General 1994 Psychiatric orientation/consciousness Overall: oriented to person, place and time 01/05/2018 None Full Exam - General 1994 Psychiatric mood and affect Mood: flat 01/05/2018 None Full Exam - General 1994 Constitutional general appearance Stature/Body Habitus: short stature 12/08/2017 None Full Exam - General 1994 Constitutional general appearance Stature/Body Habitus: kyphosis 12/08/2017 None Full Exam - General 1994 Constitutional general appearance Nourishment: thin 12/08/2017 None Full Exam - General 1994 Constitutional general appearance Evidence of Distress: in no acute distress 12/08/2017 None Full Exam - General 1994 Constitutional general appearance Hygiene/Attention to Grooming: good hygiene 12/08/2017 None Full Exam - General 1994 Eyes conjunctiva /eyelids Overall: conjunctiva clear 12/08/2017 None Full Exam - General 1994 Eyes conjunctiva /eyelids Overall: cornea clear 12/08/2017 None Full Exam - General 1994 Eyes conjunctiva /eyelids Overall: eyelids normal 12/08/2017 None Full Exam - General 1994 Eyes pupils and irises Overall: pupils equal, round, reactive to light and accomodation 12/08/2017 None Full Exam - General 1994 Ears/Nose/Throat external ear Overall: normal appearance 12/08/2017 None Full Exam - General 1994 Ears/Nose/Throat external ear Overall: no masses 12/08/2017 None Full Exam - General 1994 Ears/Nose/Throat external ear Overall: normal mastoids 12/08/2017 None Full Exam - General 1994 Ears/Nose/Throat otoscopic exam Overall: tympanic membranes clear 12/08/2017 None Full Exam - General 1994 Ears/Nose/Throat otoscopic exam External auditory canal: partial cerumen occlusion 12/08/2017 None Full Exam - General 1994 Ears/Nose/Throat lips/teeth/gingiva Teeth: missing teeth 12/08/2017 None Full Exam - General 1994 Ears/Nose/Throat lips/teeth/gingiva Teeth: dental caries 12/08/2017 None Full Exam - General 1994 Ears/Nose/Throat oral cavity/pharynx/larynx Overall: oral mucosa clear 12/08/2017 None Full Exam - General 1994 Respiratory auscultation Overall: breath sounds clear bilaterally 12/08/2017 None Full Exam - General 1994 Respiratory respiratory effort/rhythm Overall: no retractions 12/08/2017 None Full Exam - General 1994 Respiratory respiratory effort/rhythm Overall: normal rate 12/08/2017 None Full Exam - General 1994 Cardiovascular auscultation of heart Overall: regular rate 12/08/2017 None Full Exam - General 1994 Cardiovascular auscultation of heart Overall: normal heart sounds 12/08/2017 None Full Exam - General 1994 Cardiovascular auscultation of heart Overall: no murmurs 12/08/2017 None Full Exam - General 1994 Abdomen abdominal exam Overall: no tenderness 12/08/2017 None Full Exam - General 1994 Abdomen abdominal exam Overall: normal bowel sounds 12/08/2017 None Full Exam - General 1994 Abdomen abdominal exam Upper quadrant: non-tender to palpation 12/08/2017 None Full Exam - General 1994 Abdomen abdominal exam Upper quadrant: no guarding 12/08/2017 None Full Exam - General 1994 Abdomen abdominal exam Upper quadrant: no rebound tenderness 12/08/2017 None Full Exam - General 1994 Abdomen abdominal exam Upper quadrant: no mass lesions 12/08/2017 None Full Exam - General 1994 Abdomen abdominal exam Lower quadrant: non-tender to palpation 12/08/2017 None Full Exam - General 1994 Abdomen abdominal exam Lower quadrant: no guarding 12/08/2017 None Full Exam - General 1994 Abdomen abdominal exam Lower quadrant: no rebound tenderness 12/08/2017 None Full Exam - General 1994 Abdomen abdominal exam Lower quadrant: no mass lesions 12/08/2017 None Full Exam - General 1994 Abdomen abdominal exam Epigastric: non-tender to palpation 12/08/2017 None Full Exam - General 1994 Abdomen abdominal exam Suprapubic: non-tender to palpation 12/08/2017 None Full Exam - General 1994 Abdomen abdominal exam Periumbilical: non-tender to palpation 12/08/2017 None Full Exam - General 1994 Lymphatic neck nodes Overall: anterior cervical chain benign 12/08/2017 None Full Exam - General 1994 Lymphatic neck nodes Overall: posterior cervical chain benign 12/08/2017 None Full Exam - General 1994 Musculoskeletal gait and station Overall: normal gait 12/08/2017 None Full Exam - General 1994 Musculoskeletal gait and station Overall: normal station 12/08/2017 None Full Exam - General 1994 Musculoskeletal head and neck Overall: head atraumatic 12/08/2017 None Full Exam - General 1994 Musculoskeletal head and neck Overall: TMJ benign 12/08/2017 None Full Exam - General 1994 Musculoskeletal head and neck Overall: cervical spine benign 12/08/2017 None Full Exam - General 1994 Neurologic mental status Overall: alert 12/08/2017 None Full Exam - General 1994 Neurologic mental status Overall: oriented 12/08/2017 None Full Exam - General 1994 Neurologic gait Overall: no ataxia, no unsteadiness 12/08/2017 None Full Exam - General 1994 Neurologic motor Overall: normal bulk, tone 12/08/2017 None Full Exam - General 1994 Psychiatric orientation/consciousness Overall: oriented to person, place and time 12/08/2017 None Full Exam - General 1994 Psychiatric mood and affect Mood: flat 12/08/2017 None Full Exam - General 1994 Constitutional general appearance Stature/Body Habitus: short stature 11/13/2017 None Full Exam - General 1994 Constitutional general appearance Stature/Body Habitus: kyphosis 11/13/2017 None Full Exam - General 1994 Constitutional general appearance Nourishment: thin 11/13/2017 None Full Exam - General 1994 Constitutional general appearance Evidence of Distress: in no acute distress 11/13/2017 None Full Exam - General 1994 Constitutional general appearance Hygiene/Attention to Grooming: good hygiene 11/13/2017 None Full Exam - General 1994 Eyes conjunctiva /eyelids Overall: conjunctiva clear 11/13/2017 None Full Exam - General 1994 Eyes conjunctiva /eyelids Overall: cornea clear 11/13/2017 None Full Exam - General 1994 Eyes conjunctiva /eyelids Overall: eyelids normal 11/13/2017 None Full Exam - General 1994 Eyes pupils and irises Overall: pupils equal, round, reactive to light and accomodation 11/13/2017 None Full Exam - General 1994 Ears/Nose/Throat otoscopic exam Overall: tympanic membranes clear 11/13/2017 None Full Exam - General 1994 Ears/Nose/Throat otoscopic exam External auditory canal: partial cerumen occlusion 11/13/2017 None Full Exam - General 1994 Ears/Nose/Throat lips/teeth/gingiva Teeth: missing teeth 11/13/2017 None Full Exam - General 1994 Ears/Nose/Throat lips/teeth/gingiva Teeth: dental caries 11/13/2017 None Full Exam - General 1994 Ears/Nose/Throat oral cavity/pharynx/larynx Overall: oral mucosa clear 11/13/2017 None Full Exam - General 1994 Respiratory auscultation Overall: breath sounds clear bilaterally 11/13/2017 None Full Exam - General 1994 Respiratory respiratory effort/rhythm Overall: no retractions 11/13/2017 None Full Exam - General 1994 Respiratory respiratory effort/rhythm Overall: normal rate 11/13/2017 None Full Exam - General 1994 Cardiovascular auscultation of heart Overall: regular rate 11/13/2017 None Full Exam - General 1994 Cardiovascular auscultation of heart Overall: normal heart sounds 11/13/2017 None Full Exam - General 1994 Cardiovascular auscultation of heart Overall: no murmurs 11/13/2017 None Full Exam - General 1994 Abdomen abdominal exam Overall: no tenderness 11/13/2017 None Full Exam - General 1994 Abdomen abdominal exam Overall: normal bowel sounds 11/13/2017 None Full Exam - General 1994 Abdomen abdominal exam Upper quadrant: non-tender to palpation 11/13/2017 None Full Exam - General 1994 Abdomen abdominal exam Upper quadrant: no guarding 11/13/2017 None Full Exam - General 1994 Abdomen abdominal exam Upper quadrant: no rebound tenderness 11/13/2017 None Full Exam - General 1994 Abdomen abdominal exam Upper quadrant: no mass lesions 11/13/2017 None Full Exam - General 1994 Abdomen abdominal exam Lower quadrant: non-tender to palpation 11/13/2017 None Full Exam - General 1994 Abdomen abdominal exam Lower quadrant: tender to palpation 11/13/2017 None Full Exam - General 1994 Abdomen abdominal exam Lower quadrant: no guarding 11/13/2017 None Full Exam - General 1994 Abdomen abdominal exam Lower quadrant: no rebound tenderness 11/13/2017 None Full Exam - General 1994 Abdomen abdominal exam Lower quadrant: no mass lesions 11/13/2017 None Full Exam - General 1994 Abdomen abdominal exam Epigastric: non-tender to palpation 11/13/2017 None Full Exam - General 1994 Abdomen abdominal exam Suprapubic: non-tender to palpation 11/13/2017 None Full Exam - General 1994 Abdomen abdominal exam Periumbilical: non-tender to palpation 11/13/2017 None Full Exam - General 1994 Musculoskeletal gait and station Overall: normal gait 11/13/2017 None Full Exam - General 1994 Musculoskeletal gait and station Overall: normal station 11/13/2017 None Full Exam - General 1994 Musculoskeletal head and neck Overall: head atraumatic 11/13/2017 None Full Exam - General 1994 Neurologic mental status Overall: alert 11/13/2017 None Full Exam - General 1994 Neurologic mental status Overall: oriented 11/13/2017 None Full Exam - General 1994 Neurologic gait Overall: no ataxia, no unsteadiness 11/13/2017 None Full Exam - General 1994 Neurologic motor Overall: normal bulk, tone 11/13/2017 None Full Exam - General 1994 Psychiatric orientation/consciousness Overall: oriented to person, place and time 11/13/2017 None Full Exam - General 1994 Psychiatric mood and affect Mood: flat 11/13/2017 None Full Exam - General 1994 Musculoskeletal upper extremity Palpation - shoulder: tenderness @ bicipital groove 11/13/2017 None Full Exam - General 1994 Musculoskeletal upper extremity ROM - shoulder: crepitus 11/13/2017 None Full Exam - General 1994 Musculoskeletal upper extremity ROM - shoulder: pain with internal rotation 11/13/2017 None Full Exam - General 1994 Constitutional general appearance Stature/Body Habitus: short stature 10/06/2017 None Full Exam - General 1994 Constitutional general appearance Stature/Body Habitus: kyphosis 10/06/2017 None Full Exam - General 1994 Constitutional general appearance Nourishment: thin 10/06/2017 None Full Exam - General 1994 Constitutional general appearance Evidence of Distress: in no acute distress 10/06/2017 None Full Exam - General 1994 Constitutional general appearance Hygiene/Attention to Grooming: good hygiene 10/06/2017 None Full Exam - General 1994 Eyes conjunctiva /eyelids Overall: conjunctiva clear 10/06/2017 None Full Exam - General 1994 Eyes conjunctiva /eyelids Overall: cornea clear 10/06/2017 None Full Exam - General 1994 Eyes conjunctiva /eyelids Overall: eyelids normal 10/06/2017 None Full Exam - General 1994 Eyes pupils and irises Overall: pupils equal, round, reactive to light and accomodation 10/06/2017 None Full Exam - General 1994 Ears/Nose/Throat external ear Overall: normal appearance 10/06/2017 None Full Exam - General 1994 Ears/Nose/Throat external ear Overall: no masses 10/06/2017 None Full Exam - General 1994 Ears/Nose/Throat external ear Overall: normal mastoids 10/06/2017 None Full Exam - General 1994 Ears/Nose/Throat otoscopic exam Overall: tympanic membranes clear 10/06/2017 None Full Exam - General 1994 Ears/Nose/Throat otoscopic exam External auditory canal: partial cerumen occlusion 10/06/2017 None Full Exam - General 1994 Ears/Nose/Throat lips/teeth/gingiva Teeth: missing teeth 10/06/2017 None Full Exam - General 1994 Ears/Nose/Throat lips/teeth/gingiva Teeth: dental caries 10/06/2017 None Full Exam - General 1994 Ears/Nose/Throat oral cavity/pharynx/larynx Overall: oral mucosa clear 10/06/2017 None Full Exam - General 1994 Neck thyroid Overall: normal size None Full Exam - General 1994 Neck thyroid Overall: normal consistency 10/06/2017 None Full Exam - General 1994 Neck thyroid Overall: nontender 2016 None Full Exam - General 1994 Respiratory auscultation Overall: breath sounds clear bilaterally 10/06/2017 None Full Exam - General 1994 Respiratory respiratory effort/rhythm Overall: no retractions 10/06/2017 None Full Exam - General 1994 Respiratory respiratory effort/rhythm Overall: normal rate 10/06/2017 None Full Exam - General 1994 Cardiovascular auscultation of heart Overall: regular rate 10/06/2017 None Full Exam - General 1994 Cardiovascular auscultation of heart Overall: normal heart sounds 10/06/2017 None Full Exam - General 1994 Cardiovascular auscultation of heart Overall: no murmurs 10/06/2017 None Full Exam - General 1994 Abdomen abdominal exam Overall: no tenderness 10/06/2017 None Full Exam - General 1994 Abdomen abdominal exam Overall: normal bowel sounds 10/06/2017 None Full Exam - General 1994 Abdomen abdominal exam Upper quadrant: non-tender to palpation 10/06/2017 None Full Exam - General 1994 Abdomen abdominal exam Upper quadrant: no guarding 10/06/2017 None Full Exam - General 1994 Abdomen abdominal exam Upper quadrant: no rebound tenderness 10/06/2017 None Full Exam - General 1994 Abdomen abdominal exam Upper quadrant: no mass lesions 10/06/2017 None Full Exam - General 1994 Abdomen abdominal exam Lower quadrant: non-tender to palpation 10/06/2017 None Full Exam - General 1994 Abdomen abdominal exam Lower quadrant: tender to palpation 10/06/2017 None Full Exam - General 1994 Abdomen abdominal exam Lower quadrant: no guarding 10/06/2017 None Full Exam - General 1994 Abdomen abdominal exam Lower quadrant: no rebound tenderness 10/06/2017 None Full Exam - General 1994 Abdomen abdominal exam Lower quadrant: no mass lesions 10/06/2017 None Full Exam - General 1994 Abdomen abdominal exam Epigastric: non-tender to palpation 10/06/2017 None Full Exam - General 1994 Abdomen abdominal exam Suprapubic: non-tender to palpation 10/06/2017 None Full Exam - General 1994 Abdomen abdominal exam Periumbilical: non-tender to palpation 10/06/2017 None Full Exam - General 1994 Lymphatic neck nodes Overall: anterior cervical chain benign 10/06/2017 None Full Exam - General 1994 Lymphatic neck nodes Overall: posterior cervical chain benign 10/06/2017 None Full Exam - General 1994 Musculoskeletal gait and station Overall: normal gait 10/06/2017 None Full Exam - General 1994 Musculoskeletal gait and station Overall: normal station 10/06/2017 None Full Exam - General 1994 Musculoskeletal head and neck Overall: head atraumatic 10/06/2017 None Full Exam - General 1994 Musculoskeletal head and neck Overall: TMJ benign 10/06/2017 None Full Exam - General 1994 Musculoskeletal head and neck Overall: cervical spine benign 10/06/2017 None Full Exam - General 1994 Neurologic mental status Overall: alert 10/06/2017 None Full Exam - General 1994 Neurologic mental status Overall: oriented 10/06/2017 None Full Exam - General 1994 Neurologic gait Overall: no ataxia, no unsteadiness 10/06/2017 None Full Exam - General 1994 Neurologic motor Overall: normal bulk, tone 10/06/2017 None Full Exam - General 1994 Psychiatric orientation/consciousness Overall: oriented to person, place and time 10/06/2017 None Full Exam - General 1994 Psychiatric mood and affect Mood: flat 10/06/2017 None Full Exam - General 1994 Constitutional general appearance Stature/Body Habitus: short stature 09/16/2017 None Full Exam - General 1994 Constitutional general appearance Stature/Body Habitus: kyphosis 09/16/2017 None Full Exam - General 1994 Constitutional general appearance Nourishment: thin 09/16/2017 None Full Exam - General 1994 Constitutional general appearance Evidence of Distress: in no acute distress 09/16/2017 None Full Exam - General 1994 Constitutional general appearance Hygiene/Attention to Grooming: good hygiene 09/16/2017 None Full Exam - General 1994 Eyes conjunctiva /eyelids Overall: conjunctiva clear 09/16/2017 None Full Exam - General 1994 Eyes conjunctiva /eyelids Overall: cornea clear 09/16/2017 None Full Exam - General 1994 Eyes conjunctiva /eyelids Overall: eyelids normal 09/16/2017 None Full Exam - General 1994 Eyes pupils and irises Overall: pupils equal, round, reactive to light and accomodation 09/16/2017 None Full Exam - General 1994 Ears/Nose/Throat external ear Overall: normal appearance 09/16/2017 None Full Exam - General 1994 Ears/Nose/Throat external ear Overall: no masses 09/16/2017 None Full Exam - General 1994 Ears/Nose/Throat external ear Overall: normal mastoids 09/16/2017 None Full Exam - General 1994 Ears/Nose/Throat otoscopic exam Overall: tympanic membranes clear 09/16/2017 None Full Exam - General 1994 Ears/Nose/Throat otoscopic exam External auditory canal: partial cerumen occlusion 09/16/2017 None Full Exam - General 1994 Ears/Nose/Throat lips/teeth/gingiva Teeth: missing teeth 09/16/2017 None Full Exam - General 1994 Ears/Nose/Throat lips/teeth/gingiva Teeth: dental caries 09/16/2017 None Full Exam - General 1994 Ears/Nose/Throat oral cavity/pharynx/larynx Overall: oral mucosa clear 09/16/2017 None Full Exam - General 1994 Neck thyroid Overall: normal size None Full Exam - General 1994 Neck thyroid Overall: normal consistency 09/16/2017 None Full Exam - General 1994 Neck thyroid Overall: nontender 2016 None Full Exam - General 1994 Respiratory auscultation Overall: breath sounds clear bilaterally 09/16/2017 None Full Exam - General 1994 Respiratory respiratory effort/rhythm Overall: no retractions 09/16/2017 None Full Exam - General 1994 Respiratory respiratory effort/rhythm Overall: normal rate 09/16/2017 None Full Exam - General 1994 Cardiovascular auscultation of heart Overall: regular rate 09/16/2017 None Full Exam - General 1994 Cardiovascular auscultation of heart Overall: normal heart sounds 09/16/2017 None Full Exam - General 1994 Cardiovascular auscultation of heart Overall: no murmurs 09/16/2017 None Full Exam - General 1994 Abdomen abdominal exam Overall: no tenderness 09/16/2017 None Full Exam - General 1994 Abdomen abdominal exam Overall: normal bowel sounds 09/16/2017 None Full Exam - General 1994 Abdomen abdominal exam Upper quadrant: non-tender to palpation 09/16/2017 None Full Exam - General 1994 Abdomen abdominal exam Upper quadrant: no guarding 09/16/2017 None Full Exam - General 1994 Abdomen abdominal exam Upper quadrant: no rebound tenderness 09/16/2017 None Full Exam - General 1994 Abdomen abdominal exam Upper quadrant: no mass lesions 09/16/2017 None Full Exam - General 1994 Abdomen abdominal exam Lower quadrant: non-tender to palpation 09/16/2017 None Full Exam - General 1994 Abdomen abdominal exam Lower quadrant: no guarding 09/16/2017 None Full Exam - General 1994 Abdomen abdominal exam Lower quadrant: no rebound tenderness 09/16/2017 None Full Exam - General 1994 Abdomen abdominal exam Lower quadrant: no mass lesions 09/16/2017 None Full Exam - General 1994 Abdomen abdominal exam Epigastric: non-tender to palpation 09/16/2017 None Full Exam - General 1994 Abdomen abdominal exam Suprapubic: non-tender to palpation 09/16/2017 None Full Exam - General 1994 Abdomen abdominal exam Periumbilical: non-tender to palpation 09/16/2017 None Full Exam - General 1994 Lymphatic neck nodes Overall: anterior cervical chain benign 09/16/2017 None Full Exam - General 1994 Lymphatic neck nodes Overall: posterior cervical chain benign 09/16/2017 None Full Exam - General 1994 Musculoskeletal gait and station Overall: normal gait 09/16/2017 None Full Exam - General 1994 Musculoskeletal gait and station Overall: normal station 09/16/2017 None Full Exam - General 1994 Musculoskeletal head and neck Overall: head atraumatic 09/16/2017 None Full Exam - General 1994 Musculoskeletal head and neck Overall: TMJ benign 09/16/2017 None Full Exam - General 1994 Musculoskeletal head and neck Overall: cervical spine benign 09/16/2017 None Full Exam - General 1994 Neurologic mental status Overall: alert 09/16/2017 None Full Exam - General 1994 Neurologic mental status Overall: oriented 09/16/2017 None Full Exam - General 1994 Neurologic gait Overall: no ataxia, no unsteadiness 09/16/2017 None Full Exam - General 1994 Neurologic motor Overall: normal bulk, tone 09/16/2017 None Full Exam - General 1994 Psychiatric orientation/consciousness Overall: oriented to person, place and time 09/16/2017 None Full Exam - General 1994 Psychiatric mood and affect Mood: flat 09/16/2017 None Full Exam - General 1994 Abdomen abdominal exam Lower quadrant: tender to palpation 09/16/2017 None Full Exam - General 1994 Constitutional general appearance Stature/Body Habitus: short stature 07/15/2017 None Full Exam - General 1994 Constitutional general appearance Stature/Body Habitus: kyphosis 07/15/2017 None Full Exam - General 1994 Constitutional general appearance Nourishment: thin 07/15/2017 None Full Exam - General 1994 Constitutional general appearance Evidence of Distress: in no acute distress 07/15/2017 None Full Exam - General 1994 Constitutional general appearance Hygiene/Attention to Grooming: good hygiene 07/15/2017 None Full Exam - General 1994 Eyes conjunctiva /eyelids Overall: conjunctiva clear 07/15/2017 None Full Exam - General 1994 Eyes conjunctiva /eyelids Overall: cornea clear 07/15/2017 None Full Exam - General 1994 Eyes conjunctiva /eyelids Overall: eyelids normal 07/15/2017 None Full Exam - General 1994 Eyes pupils and irises Overall: pupils equal, round, reactive to light and accomodation 07/15/2017 None Full Exam - General 1994 Ears/Nose/Throat external ear Overall: normal appearance 07/15/2017 None Full Exam - General 1994 Ears/Nose/Throat external ear Overall: no masses 07/15/2017 None Full Exam - General 1994 Ears/Nose/Throat external ear Overall: normal mastoids 07/15/2017 None Full Exam - General 1994 Ears/Nose/Throat otoscopic exam Overall: tympanic membranes clear 07/15/2017 None Full Exam - General 1994 Ears/Nose/Throat otoscopic exam External auditory canal: partial cerumen occlusion 07/15/2017 None Full Exam - General 1994 Ears/Nose/Throat lips/teeth/gingiva Teeth: missing teeth 07/15/2017 None Full Exam - General 1994 Ears/Nose/Throat lips/teeth/gingiva Teeth: dental caries 07/15/2017 None Full Exam - General 1994 Ears/Nose/Throat oral cavity/pharynx/larynx Overall: oral mucosa clear 07/15/2017 None Full Exam - General 1994 Neck thyroid Overall: normal size None Full Exam - General 1994 Neck thyroid Overall: normal consistency 07/15/2017 None Full Exam - General 1994 Neck thyroid Overall: nontender 2016 None Full Exam - General 1994 Respiratory auscultation Overall: breath sounds clear bilaterally 07/15/2017 None Full Exam - General 1994 Respiratory respiratory effort/rhythm Overall: no retractions 07/15/2017 None Full Exam - General 1994 Respiratory respiratory effort/rhythm Overall: normal rate 07/15/2017 None Full Exam - General 1994 Cardiovascular auscultation of heart Overall: regular rate 07/15/2017 None Full Exam - General 1994 Cardiovascular auscultation of heart Overall: normal heart sounds 07/15/2017 None Full Exam - General 1994 Cardiovascular auscultation of heart Overall: no murmurs 07/15/2017 None Full Exam - General 1994 Abdomen abdominal exam Overall: no tenderness 07/15/2017 None Full Exam - General 1994 Abdomen abdominal exam Overall: normal bowel sounds 07/15/2017 None Full Exam - General 1994 Abdomen abdominal exam Upper quadrant: non-tender to palpation 07/15/2017 None Full Exam - General 1994 Abdomen abdominal exam Upper quadrant: no guarding 07/15/2017 None Full Exam - General 1994 Abdomen abdominal exam Upper quadrant: no rebound tenderness 07/15/2017 None Full Exam - General 1994 Abdomen abdominal exam Upper quadrant: no mass lesions 07/15/2017 None Full Exam - General 1994 Abdomen abdominal exam Lower quadrant: non-tender to palpation 07/15/2017 None Full Exam - General 1994 Abdomen abdominal exam Lower quadrant: no guarding 07/15/2017 None Full Exam - General 1994 Abdomen abdominal exam Lower quadrant: no rebound tenderness 07/15/2017 None Full Exam - General 1994 Abdomen abdominal exam Lower quadrant: no mass lesions 07/15/2017 None Full Exam - General 1994 Abdomen abdominal exam Epigastric: non-tender to palpation 07/15/2017 None Full Exam - General 1994 Abdomen abdominal exam Suprapubic: non-tender to palpation 07/15/2017 None Full Exam - General 1994 Abdomen abdominal exam Periumbilical: non-tender to palpation 07/15/2017 None Full Exam - General 1994 Lymphatic neck nodes Overall: anterior cervical chain benign 07/15/2017 None Full Exam - General 1994 Lymphatic neck nodes Overall: posterior cervical chain benign 07/15/2017 None Full Exam - General 1994 Musculoskeletal gait and station Overall: normal gait 07/15/2017 None Full Exam - General 1994 Musculoskeletal gait and station Overall: normal station 07/15/2017 None Full Exam - General 1994 Musculoskeletal head and neck Overall: head atraumatic 07/15/2017 None Full Exam - General 1994 Musculoskeletal head and neck Overall: TMJ benign 07/15/2017 None Full Exam - General 1994 Musculoskeletal head and neck Overall: cervical spine benign 07/15/2017 None Full Exam - General 1994 Neurologic mental status Overall: alert 07/15/2017 None Full Exam - General 1994 Neurologic mental status Overall: oriented 07/15/2017 None Full Exam - General 1994 Neurologic gait Overall: no ataxia, no unsteadiness 07/15/2017 None Full Exam - General 1994 Neurologic motor Overall: normal bulk, tone 07/15/2017 None Full Exam - General 1994 Psychiatric orientation/consciousness Overall: oriented to person, place and time 07/15/2017 None Full Exam - General 1994 Psychiatric mood and affect Mood: flat 07/15/2017 None Full Exam - General 1994 Constitutional general appearance Stature/Body Habitus: short stature 05/13/2017 None Full Exam - General 1994 Constitutional general appearance Stature/Body Habitus: kyphosis 05/13/2017 None Full Exam - General 1994 Constitutional general appearance Nourishment: thin 05/13/2017 None Full Exam - General 1994 Constitutional general appearance Evidence of Distress: in no acute distress 05/13/2017 None Full Exam - General 1994 Constitutional general appearance Hygiene/Attention to Grooming: good hygiene 05/13/2017 None Full Exam - General 1994 Eyes conjunctiva /eyelids Overall: conjunctiva clear 05/13/2017 None Full Exam - General 1994 Eyes conjunctiva /eyelids Overall: cornea clear 05/13/2017 None Full Exam - General 1994 Eyes conjunctiva /eyelids Overall: eyelids normal 05/13/2017 None Full Exam - General 1994 Eyes pupils and irises Overall: pupils equal, round, reactive to light and accomodation 05/13/2017 None Full Exam - General 1994 Ears/Nose/Throat external ear Overall: normal appearance 05/13/2017 None Full Exam - General 1994 Ears/Nose/Throat external ear Overall: no masses 05/13/2017 None Full Exam - General 1994 Ears/Nose/Throat external ear Overall: normal mastoids 05/13/2017 None Full Exam - General 1994 Ears/Nose/Throat otoscopic exam Overall: tympanic membranes clear 05/13/2017 None Full Exam - General 1994 Ears/Nose/Throat otoscopic exam External auditory canal: partial cerumen occlusion 05/13/2017 None Full Exam - General 1994 Ears/Nose/Throat lips/teeth/gingiva Lips: dry 05/13/2017 None Full Exam - General 1994 Ears/Nose/Throat lips/teeth/gingiva Teeth: missing teeth 05/13/2017 None Full Exam - General 1994 Ears/Nose/Throat lips/teeth/gingiva Teeth: dental caries 05/13/2017 None Full Exam - General 1994 Ears/Nose/Throat oral cavity/pharynx/larynx Overall: oral mucosa clear 05/13/2017 None Full Exam - General 1994 Neck thyroid Overall: normal size None Full Exam - General 1994 Neck thyroid Overall: normal consistency 05/13/2017 None Full Exam - General 1994 Neck thyroid Overall: nontender 2016 None Full Exam - General 1994 Respiratory auscultation Overall: breath sounds clear bilaterally 05/13/2017 None Full Exam - General 1994 Respiratory respiratory effort/rhythm Overall: no retractions 05/13/2017 None Full Exam - General 1994 Respiratory respiratory effort/rhythm Overall: normal rate 05/13/2017 None Full Exam - General 1994 Cardiovascular auscultation of heart Overall: regular rate 05/13/2017 None Full Exam - General 1994 Cardiovascular auscultation of heart Overall: normal heart sounds 05/13/2017 None Full Exam - General 1994 Cardiovascular auscultation of heart Overall: no murmurs 05/13/2017 None Full Exam - General 1994 Abdomen abdominal exam Overall: no tenderness 05/13/2017 None Full Exam - General 1994 Abdomen abdominal exam Overall: normal bowel sounds 05/13/2017 None Full Exam - General 1994 Abdomen abdominal exam Upper quadrant: non-tender to palpation 05/13/2017 None Full Exam - General 1994 Abdomen abdominal exam Upper quadrant: no guarding 05/13/2017 None Full Exam - General 1994 Abdomen abdominal exam Upper quadrant: no rebound tenderness 05/13/2017 None Full Exam - General 1994 Abdomen abdominal exam Upper quadrant: no mass lesions 05/13/2017 None Full Exam - General 1994 Abdomen abdominal exam Lower quadrant: non-tender to palpation 05/13/2017 None Full Exam - General 1994 Abdomen abdominal exam Lower quadrant: no guarding 05/13/2017 None Full Exam - General 1994 Abdomen abdominal exam Lower quadrant: no rebound tenderness 05/13/2017 None Full Exam - General 1994 Abdomen abdominal exam Lower quadrant: no mass lesions 05/13/2017 None Full Exam - General 1994 Abdomen abdominal exam Epigastric: non-tender to palpation 05/13/2017 None Full Exam - General 1994 Abdomen abdominal exam Suprapubic: non-tender to palpation 05/13/2017 None Full Exam - General 1994 Abdomen abdominal exam Periumbilical: non-tender to palpation 05/13/2017 None Full Exam - General 1994 Lymphatic neck nodes Overall: anterior cervical chain benign 05/13/2017 None Full Exam - General 1994 Lymphatic neck nodes Overall: posterior cervical chain benign 05/13/2017 None Full Exam - General 1994 Musculoskeletal gait and station Overall: normal gait 05/13/2017 None Full Exam - General 1994 Musculoskeletal gait and station Overall: normal station 05/13/2017 None Full Exam - General 1994 Musculoskeletal head and neck Overall: head atraumatic 05/13/2017 None Full Exam - General 1994 Musculoskeletal head and neck Overall: TMJ benign 05/13/2017 None Full Exam - General 1994 Musculoskeletal head and neck Overall: cervical spine benign 05/13/2017 None Full Exam - General 1994 Neurologic mental status Overall: alert 05/13/2017 None Full Exam - General 1994 Neurologic mental status Overall: oriented 05/13/2017 None Full Exam - General 1994 Neurologic gait Overall: no ataxia, no unsteadiness 05/13/2017 None Full Exam - General 1994 Neurologic motor Overall: normal bulk, tone 05/13/2017 None Full Exam - General 1994 Psychiatric orientation/consciousness Overall: oriented to person, place and time 05/13/2017 None Full Exam - General 1995 Psychiatric mood and affect Mood: flat 05/13/2017 None Full Exam - Orthopedics Constitutional general appearance Overall: well developed 04/16/2017 None Full Exam - Orthopedics Constitutional general appearance Overall: in no acute distress 04/16/2017 None Full Exam - Orthopedics Constitutional general appearance Nourishment: thin 04/16/2017 None Full Exam - Orthopedics Eyes conjunctiva/ eyelids Overall: conjunctiva clear 04/16/2017 None Full Exam - Orthopedics Eyes conjunctiva/ eyelids Overall: eyelids normal 04/16/2017 None Full Exam - Orthopedics Ears/Nose/Throat lips/teeth/gingiva Overall: benign lips 04/16/2017 None Full Exam - Orthopedics Ears/Nose/Throat oral cavity/pharynx/larynx Overall: oral mucosa clear 04/16/2017 None Full Exam - Orthopedics Respiratory auscultation Overall: breath sounds clear bilaterally 04/16/2017 None Full Exam - Orthopedics Respiratory respiratory effort/rhythm Overall: no retractions 04/16/2017 None Full Exam - Orthopedics Respiratory respiratory effort/rhythm Overall: normal rate 04/16/2017 None Full Exam - Orthopedics MS: head/neck insp & palp - H/N Overall: head atraumatic 04/16/2017 None Full Exam - Orthopedics MS: spine/rib/pelvis insp & palp - S/R/P Thoracic/lumbar muscles palpation: tender left parathoracic 04/16/2017 None Full Exam - Orthopedics MS: spine/rib/pelvis insp & palp - S/R/P Thoracic/lumbar muscles palpation: tender right parathoracic 04/16/2017 None Full Exam - Orthopedics MS: spine/rib/pelvis insp & palp - S/R/P Thoracic/lumbar muscles palpation: tender right paralumbar 04/16/2017 None Full Exam - Orthopedics MS: spine/rib/pelvis insp & palp - S/R/P Thoracic/lumbar muscles palpation: tender left paralumbar 04/16/2017 None Full Exam - Orthopedics Psychiatric orientation/consciousness Overall: oriented to person, place and time 04/16/2017 None Full Exam - Orthopedics Psychiatric mood and affect Overall: normal mood and affect 04/16/2017 None Full Exam - Orthopedics Psychiatric appearance Overall: well-groomed, good eye contact 04/16/2017 None Full Exam - General 1995 Constitutional general appearance Stature/Body Habitus: short stature 01/17/2017 None Full Exam - General 1994 Constitutional general appearance Stature/Body Habitus: kyphosis 01/17/2017 None Full Exam - General 1994 Constitutional general appearance Nourishment: thin 01/17/2017 None Full Exam - General 1995 Constitutional general appearance Evidence of Distress: in no acute distress 01/17/2017 None Full Exam - General 1994 Constitutional general appearance Hygiene/Attention to Grooming: good hygiene 01/17/2017 None Full Exam - General 1994 Eyes conjunctiva /eyelids Overall: conjunctiva clear 01/17/2017 None Full Exam - General 1994 Eyes conjunctiva /eyelids Overall: cornea clear 01/17/2017 None Full Exam - General 1994 Eyes conjunctiva /eyelids Overall: eyelids normal 01/17/2017 None Full Exam - General 1994 Eyes pupils and irises Overall: pupils equal, round, reactive to light and accomodation 01/17/2017 None Full Exam - General 1994 Ears/Nose/Throat external ear Overall: normal appearance 01/17/2017 None Full Exam - General 1994 Ears/Nose/Throat external ear Overall: no masses 01/17/2017 None Full Exam - General 1995 Ears/Nose/Throat external ear Overall: normal mastoids 01/17/2017 None Full Exam - General 1994 Ears/Nose/Throat otoscopic exam External auditory canal: partial cerumen occlusion 01/17/2017 None Full Exam - General 1995 Ears/Nose/Throat otoscopic exam Overall: tympanic membranes clear 01/17/2017 None Full Exam - General 1994 Ears/Nose/Throat lips/teeth/gingiva Lips: dry 01/17/2017 None Full Exam - General 1994 Ears/Nose/Throat lips/teeth/gingiva Teeth: dental caries 01/17/2017 None Full Exam - General 1995 Ears/Nose/Throat lips/teeth/gingiva Teeth: missing teeth 01/17/2017 None Full Exam - General 1994 Ears/Nose/Throat oral cavity/pharynx/larynx Overall: oral mucosa clear 01/17/2017 None Full Exam - General 1994 Neck thyroid Overall: normal size None Full Exam - General 1994 Neck thyroid Overall: nontender 2016 None Full Exam - General 1994 Neck thyroid Overall: normal consistency 01/17/2017 None Full Exam - General 1994 Respiratory respiratory effort/rhythm Overall: no retractions 01/17/2017 None Full Exam - General 1994 Respiratory respiratory effort/rhythm Overall: normal rate 01/17/2017 None Full Exam - General 1994 Respiratory auscultation Overall: breath sounds clear bilaterally 01/17/2017 None Full Exam - General 1994 Cardiovascular auscultation of heart Overall: regular rate 01/17/2017 None Full Exam - General 1994 Cardiovascular auscultation of heart Overall: no murmurs 01/17/2017 None Full Exam - General 1994 Cardiovascular auscultation of heart Overall: normal heart sounds 01/17/2017 None Full Exam - General 1994 Abdomen abdominal exam Overall: no tenderness 01/17/2017 None Full Exam - General 1994 Abdomen abdominal exam Overall: normal bowel sounds 01/17/2017 None Full Exam - General 1994 Abdomen abdominal exam Upper quadrant: non-tender to palpation 01/17/2017 None Full Exam - General 1994 Abdomen abdominal exam Upper quadrant: no guarding 01/17/2017 None Full Exam - General 1994 Abdomen abdominal exam Upper quadrant: no rebound tenderness 01/17/2017 None Full Exam - General 1994 Abdomen abdominal exam Upper quadrant: no mass lesions 01/17/2017 None Full Exam - General 1994 Abdomen abdominal exam Lower quadrant: non-tender to palpation 01/17/2017 None Full Exam - General 1994 Abdomen abdominal exam Lower quadrant: no guarding 01/17/2017 None Full Exam - General 1994 Abdomen abdominal exam Lower quadrant: no rebound tenderness 01/17/2017 None Full Exam - General 1994 Abdomen abdominal exam Lower quadrant: no mass lesions 01/17/2017 None Full Exam - General 1994 Abdomen abdominal exam Epigastric: non-tender to palpation 01/17/2017 None Full Exam - General 1994 Abdomen abdominal exam Suprapubic: non-tender to palpation 01/17/2017 None Full Exam - General 1994 Abdomen abdominal exam Periumbilical: non-tender to palpation 01/17/2017 None Full Exam - General 1994 Lymphatic neck nodes Overall: anterior cervical chain benign 01/17/2017 None Full Exam - General 1994 Lymphatic neck nodes Overall: posterior cervical chain benign 01/17/2017 None Full Exam - General 1994 Musculoskeletal head and neck Overall: head atraumatic 01/17/2017 None Full Exam - General 1994 Musculoskeletal head and neck Overall: TMJ benign 01/17/2017 None Full Exam - General 1994 Musculoskeletal head and neck Overall: cervical spine benign 01/17/2017 None Full Exam - General 1994 Musculoskeletal gait and station Overall: normal gait 01/17/2017 None Full Exam - General 1994 Musculoskeletal gait and station Overall: normal station 01/17/2017 None Full Exam - General 1994 Neurologic mental status Overall: alert 01/17/2017 None Full Exam - General 1994 Neurologic mental status Overall: oriented 01/17/2017 None Full Exam - General 1994 Neurologic gait Overall: no ataxia, no unsteadiness 01/17/2017 None Full Exam - General 1994 Neurologic motor Overall: normal bulk, tone 01/17/2017 None Full Exam - General 1994 Psychiatric orientation/consciousness Overall: oriented to person, place and time 01/17/2017 None Full Exam - General 1994 Psychiatric mood and affect Mood: flat 01/17/2017 None Full Exam - Orthopedics Constitutional general appearance Overall: well nourished 01/01/2017 None Full Exam - Orthopedics Constitutional general appearance Overall: well developed 01/01/2017 None Full Exam - Orthopedics Constitutional general appearance Overall: in no acute distress 01/01/2017 None Full Exam - Orthopedics Eyes conjunctiva/ eyelids Overall: conjunctiva clear 01/01/2017 None Full Exam - Orthopedics Eyes conjunctiva/ eyelids Overall: eyelids normal 01/01/2017 None Full Exam - Orthopedics Ears/Nose/Throat lips/teeth/gingiva Overall: benign lips 01/01/2017 None Full Exam - Orthopedics Respiratory respiratory effort/rhythm Overall: no retractions 01/01/2017 None Full Exam - Orthopedics Respiratory respiratory effort/rhythm Overall: normal rate 01/01/2017 None Full Exam - Orthopedics Psychiatric orientation/consciousness Overall: oriented to person, place and time 01/01/2017 None Full Exam - Orthopedics MS: right upper extremity insp & palp - RUE Upper arm: normal appearance 01/01/2017 None Full Exam - Orthopedics MS: right upper extremity insp & palp - RUE Upper arm: tenderness 01/01/2017 None Full Exam - Orthopedics Constitutional general appearance Hygiene/Attention to Grooming: tobacco halitosis 01/01/2017 None Full Exam - Orthopedics Psychiatric mood and affect Affect: flat 01/01/2017 None Full Exam - Orthopedics Cardiovascular examination of vasculature Overall: warm extremities 01/01/2017 None Full Exam - Orthopedics Ears/Nose/Throat oral cavity/pharynx/larynx Overall: oral mucosa clear 01/01/2017 None Full Exam - General 1994 Constitutional general appearance Stature/Body Habitus: kyphosis 12/09/2016 None Full Exam - General 1994 Constitutional general appearance Stature/Body Habitus: short stature 12/09/2016 None Full Exam - General 1994 Constitutional general appearance Nourishment: thin 12/09/2016 None Full Exam - General 1994 Constitutional general appearance Evidence of Distress: in acute distress 12/09/2016 None Full Exam - General 1994 Eyes conjunctiva /eyelids Overall: conjunctiva clear 12/09/2016 None Full Exam - General 1994 Eyes conjunctiva /eyelids Overall: cornea clear 12/09/2016 None Full Exam - General 1994 Eyes conjunctiva /eyelids Overall: eyelids normal 12/09/2016 None Full Exam - General 1994 Eyes pupils and irises Overall: pupils equal, round, reactive to light and accomodation 12/09/2016 None Full Exam - General 1994 Ears/Nose/Throat otoscopic exam External auditory canal: partial cerumen occlusion 12/09/2016 None Full Exam - General 1994 Ears/Nose/Throat lips/teeth/gingiva Teeth: dental caries 12/09/2016 None Full Exam - General 1994 Ears/Nose/Throat lips/teeth/gingiva Overall: benign lips 12/09/2016 None Full Exam - General 1994 Ears/Nose/Throat oral cavity/pharynx/larynx Overall: oral mucosa clear 12/09/2016 None Full Exam - General 1994 Neck thyroid Overall: normal size None Full Exam - General 1994 Neck thyroid Overall: normal consistency 12/09/2016 None Full Exam - General 1994 Neck thyroid Overall: nontender 2016 None Full Exam - General 1994 Neck inspection of neck Overall: normal size 12/09/2016 None Full Exam - General 1994 Neck inspection of neck Overall: normal appearance 12/09/2016 None Full Exam - General 1994 Neck inspection of neck Overall: no masses 12/09/2016 None Full Exam - General 1994 Respiratory respiratory effort/rhythm Overall: no retractions 12/09/2016 None Full Exam - General 1994 Respiratory respiratory effort/rhythm Overall: normal rate 12/09/2016 None Full Exam - General 1994 Cardiovascular auscultation of heart Overall: regular rate 12/09/2016 None Full Exam - General 1994 Cardiovascular auscultation of heart Overall: normal heart sounds 12/09/2016 None Full Exam - General 1994 Abdomen abdominal exam Overall: no tenderness 12/09/2016 None Full Exam - General 1994 Abdomen abdominal exam Overall: normal bowel sounds 12/09/2016 None Full Exam - General 1994 Lymphatic neck nodes Overall: anterior cervical chain benign 12/09/2016 None Full Exam - General 1994 Lymphatic neck nodes Overall: posterior cervical chain benign 12/09/2016 None Full Exam - General 1994 Musculoskeletal gait and station Gait: abnormal stride length 12/09/2016 SHORTENED Full Exam - General 1994 Musculoskeletal head and neck Overall: head atraumatic 12/09/2016 None Full Exam - General 1994 Musculoskeletal head and neck Overall: cervical spine benign 12/09/2016 None Full Exam - General 1994 Integument inspection of skin Consistency: thin 12/09/2016 None Full Exam - General 1994 Integument inspection of skin Consistency: atrophic 12/09/2016 None Full Exam - General 1994 Neurologic mental status Overall: alert 12/09/2016 None Full Exam - General 1994 Neurologic mental status Overall: oriented 12/09/2016 None Full Exam - General 1994 Neurologic motor Appearance: atrophy 12/09/2016 None Full Exam - General 1994 Neurologic motor Appearance: tremor 12/09/2016 None Full Exam - General 1994 Psychiatric orientation/consciousness Overall: oriented to person, place and time 12/09/2016 None Full Exam - General 1994 Psychiatric speech Overall: normal quality, no aphasia 12/09/2016 None Full Exam - General 1994 Psychiatric mood and affect Overall: normal mood and affect 12/09/2016 None Full Exam - General 1994 Psychiatric judgment/insight Overall: judgment and insight intact 12/09/2016 None Full Exam - General 1994 Respiratory auscultation Overall: breath sounds clear bilaterally 12/09/2016 None Full Exam - General 1994 Constitutional general appearance Overall: well developed 11/15/2016 None Full Exam - General 1994 Constitutional general appearance Overall: in no acute distress 11/15/2016 None Full Exam - General 1994 Constitutional general appearance Overall: well nourished 11/15/2016 None Full Exam - General 1994 Constitutional general appearance Nourishment: thin 11/15/2016 None Full Exam - General 1994 Constitutional general appearance Hygiene/Attention to Grooming: smells of tobacco 11/15/2016 None Full Exam - General 1994 Eyes conjunctiva /eyelids Overall: conjunctiva clear 11/15/2016 None Full Exam - General 1994 Eyes conjunctiva /eyelids Overall: cornea clear 11/15/2016 None Full Exam - General 1994 Eyes conjunctiva /eyelids Overall: eyelids normal 11/15/2016 None Full Exam - General 1994 Eyes pupils and irises Overall: pupils equal, round, reactive to light and accomodation 11/15/2016 None Full Exam - General 1994 Ears/Nose/Throat otoscopic exam Overall: external auditory canals clear 11/15/2016 None Full Exam - General 1994 Ears/Nose/Throat otoscopic exam Overall: tympanic membranes clear 11/15/2016 None Full Exam - General 1995 Ears/Nose/Throat lips/teeth/gingiva Overall: benign lips 11/15/2016 None Full Exam - General 1994 Ears/Nose/Throat lips/teeth/gingiva Overall: normal dentition 11/15/2016 None Full Exam - General 1995 Ears/Nose/Throat lips/teeth/gingiva Overall: benign gingiva 11/15/2016 None Full Exam - General 1994 Ears/Nose/Throat lips/teeth/gingiva Overall: no masses 11/15/2016 None Full Exam - General 1994 Ears/Nose/Throat oral cavity/pharynx/larynx Overall: oral mucosa clear 11/15/2016 None Full Exam - General 1994 Ears/Nose/Throat oral cavity/pharynx/larynx Overall: oropharyngeal mucosa clear 11/15/2016 None Full Exam - General 1995 Ears/Nose/Throat oral cavity/pharynx/larynx Overall: no masses 11/15/2016 None Full Exam - General 1994 Respiratory respiratory effort/rhythm Overall: no retractions 11/15/2016 None Full Exam - General 1994 Respiratory respiratory effort/rhythm Overall: normal rate 11/15/2016 None Full Exam - General 1994 Cardiovascular extremities Overall: no clubbing 11/15/2016 None Full Exam - General 1994 Cardiovascular auscultation of heart Overall: regular rate 11/15/2016 None Full Exam - General 1994 Cardiovascular auscultation of heart Overall: normal heart sounds 11/15/2016 None Full Exam - General 1994 Cardiovascular auscultation of heart Overall: no murmurs 11/15/2016 None Full Exam - General 1994 Abdomen abdominal exam Overall: no tenderness 11/15/2016 None Full Exam - General 1994 Abdomen abdominal exam Overall: normal bowel sounds 11/15/2016 None Full Exam - General 1994 Musculoskeletal gait and station Overall: normal gait 11/15/2016 None Full Exam - General 1994 Musculoskeletal gait and station Overall: normal station 11/15/2016 None Full Exam - General 1994 Integument inspection of skin Overall: no rash, lesions 11/15/2016 None Full Exam - General 1994 Psychiatric orientation/consciousness Overall: oriented to person, place and time 11/15/2016 None Full Exam - General 1994 Psychiatric mood and affect Overall: normal mood and affect 11/15/2016 None Full Exam - General 1994 Psychiatric appearance Overall: well-groomed, good eye contact 11/15/2016 None Full Exam - General 1994 Respiratory auscultation Diffuse: diminished 11/15/2016 None Full Exam - General 1994 Constitutional general appearance Overall: well developed 09/09/2016 None Full Exam - General 1994 Constitutional general appearance Overall: in no acute distress 09/09/2016 None Full Exam - General 1994 Constitutional general appearance Overall: well nourished 09/09/2016 None Full Exam - General 1994 Constitutional general appearance Nourishment: thin 09/09/2016 None Full Exam - General 1994 Constitutional general appearance Hygiene/Attention to Grooming: smells of tobacco 09/09/2016 None Full Exam - General 1994 Eyes conjunctiva /eyelids Overall: conjunctiva clear 09/09/2016 None Full Exam - General 1994 Eyes conjunctiva /eyelids Overall: cornea clear 09/09/2016 None Full Exam - General 1994 Eyes conjunctiva /eyelids Overall: eyelids normal 09/09/2016 None Full Exam - General 1994 Eyes pupils and irises Overall: pupils equal, round, reactive to light and accomodation 09/09/2016 None Full Exam - General 1994 Ears/Nose/Throat otoscopic exam Overall: external auditory canals clear 09/09/2016 None Full Exam - General 1994 Ears/Nose/Throat otoscopic exam Overall: tympanic membranes clear 09/09/2016 None Full Exam - General 1994 Ears/Nose/Throat lips/teeth/gingiva Overall: benign lips 09/09/2016 None Full Exam - General 1994 Ears/Nose/Throat lips/teeth/gingiva Overall: normal dentition 09/09/2016 None Full Exam - General 1994 Ears/Nose/Throat lips/teeth/gingiva Overall: benign gingiva 09/09/2016 None Full Exam - General 1994 Ears/Nose/Throat lips/teeth/gingiva Overall: no masses 09/09/2016 None Full Exam - General 1994 Ears/Nose/Throat oral cavity/pharynx/larynx Overall: oral mucosa clear 09/09/2016 None Full Exam - General 1994 Ears/Nose/Throat oral cavity/pharynx/larynx Overall: oropharyngeal mucosa clear 09/09/2016 None Full Exam - General 1994 Ears/Nose/Throat oral cavity/pharynx/larynx Overall: no masses 09/09/2016 None Full Exam - General 1994 Respiratory respiratory effort/rhythm Overall: no retractions 09/09/2016 None Full Exam - General 1994 Respiratory respiratory effort/rhythm Overall: normal rate 09/09/2016 None Full Exam - General 1994 Cardiovascular extremities Overall: no clubbing 09/09/2016 None Full Exam - General 1994 Cardiovascular auscultation of heart Overall: regular rate 09/09/2016 None Full Exam - General 1994 Cardiovascular auscultation of heart Overall: normal heart sounds 09/09/2016 None Full Exam - General 1994 Cardiovascular auscultation of heart Overall: no murmurs 09/09/2016 None Full Exam - General 1994 Abdomen abdominal exam Overall: no tenderness 09/09/2016 None Full Exam - General 1994 Abdomen abdominal exam Overall: normal bowel sounds 09/09/2016 None Full Exam - General 1994 Musculoskeletal gait and station Overall: normal gait 09/09/2016 None Full Exam - General 1994 Musculoskeletal gait and station Overall: normal station 09/09/2016 None Full Exam - General 1994 Integument inspection of skin Overall: no rash, lesions 09/09/2016 None Full Exam - General 1994 Psychiatric orientation/consciousness Overall: oriented to person, place and time 09/09/2016 None Full Exam - General 1994 Psychiatric mood and affect Overall: normal mood and affect 09/09/2016 None Full Exam - General 1994 Psychiatric appearance Overall: well-groomed, good eye contact 09/09/2016 None Full Exam - General 1994 Respiratory auscultation Upper lung field: expiratory wheezes 09/09/2016 None Full Exam - General 1994 Constitutional general appearance Overall: well developed 07/11/2016 None Full Exam - General 1994 Constitutional general appearance Overall: in no acute distress 07/11/2016 None Full Exam - General 1994 Constitutional general appearance Overall: well nourished 07/11/2016 None Full Exam - General 1994 Constitutional general appearance Nourishment: thin 07/11/2016 None Full Exam - General 1994 Constitutional general appearance Hygiene/Attention to Grooming: smells of tobacco 07/11/2016 None Full Exam - General 1994 Eyes conjunctiva /eyelids Overall: conjunctiva clear 07/11/2016 None Full Exam - General 1994 Eyes conjunctiva /eyelids Overall: cornea clear 07/11/2016 None Full Exam - General 1994 Eyes conjunctiva /eyelids Overall: eyelids normal 07/11/2016 None Full Exam - General 1994 Eyes pupils and irises Overall: pupils equal, round, reactive to light and accomodation 07/11/2016 None Full Exam - General 1994 Ears/Nose/Throat lips/teeth/gingiva Overall: benign lips 07/11/2016 None Full Exam - General 1994 Ears/Nose/Throat oral cavity/pharynx/larynx Overall: oral mucosa clear 07/11/2016 None Full Exam - General 1994 Respiratory respiratory effort/rhythm Overall: no retractions 07/11/2016 None Full Exam - General 1994 Respiratory respiratory effort/rhythm Overall: normal rate 07/11/2016 None Full Exam - General 1994 Cardiovascular extremities Overall: no clubbing 07/11/2016 None Full Exam - General 1994 Cardiovascular auscultation of heart Overall: regular rate 07/11/2016 None Full Exam - General 1994 Cardiovascular auscultation of heart Overall: normal heart sounds 07/11/2016 None Full Exam - General 1994 Abdomen abdominal exam Overall: no tenderness 07/11/2016 None Full Exam - General 1994 Abdomen abdominal exam Overall: normal bowel sounds 07/11/2016 None Full Exam - General 1994 Musculoskeletal gait and station Overall: normal gait 07/11/2016 None Full Exam - General 1994 Musculoskeletal gait and station Overall: normal station 07/11/2016 None Full Exam - General 1994 Integument inspection of skin Overall: no rash, lesions 07/11/2016 None Full Exam - General 1994 Psychiatric orientation/consciousness Overall: oriented to person, place and time 07/11/2016 None Full Exam - General 1994 Psychiatric mood and affect Overall: normal mood and affect 07/11/2016 None Full Exam - General 1994 Psychiatric appearance Overall: well-groomed, good eye contact 07/11/2016 None Full Exam - General 1994 Respiratory auscultation Diffuse: diminished 07/11/2016 None Full Exam - General 1994 Abdomen abdominal exam Epigastric: dull pain 07/11/2016 very mild Full Exam - General 1994 Abdomen abdominal exam Epigastric: no guarding 07/11/2016 None Full Exam - General 1994 Abdomen abdominal exam Epigastric: no rebound tenderness 07/11/2016 None Full Exam - General 1994 Abdomen abdominal exam Epigastric: no mass lesions 07/11/2016 None Full Exam - General 1994 Abdomen abdominal exam Epigastric: soft 07/11/2016 None Full Exam - General 1994 Neurologic cranial nerves Overall: crainial nerves 2 - 12 grossly intact 07/11/2016 None Full Exam - General 1994 Constitutional general appearance Overall: well developed 06/10/2016 None Full Exam - General 1994 Constitutional general appearance Overall: in no acute distress 06/10/2016 None Full Exam - General 1994 Constitutional general appearance Overall: well nourished 06/10/2016 None Full Exam - General 1994 Constitutional general appearance Nourishment: thin 06/10/2016 None Full Exam - General 1994 Constitutional general appearance Hygiene/Attention to Grooming: smells of tobacco 06/10/2016 None Full Exam - General 1994 Eyes conjunctiva /eyelids Overall: conjunctiva clear 06/10/2016 None Full Exam - General 1994 Eyes conjunctiva /eyelids Overall: cornea clear 06/10/2016 None Full Exam - General 1994 Eyes conjunctiva /eyelids Overall: eyelids normal 06/10/2016 None Full Exam - General 1994 Eyes pupils and irises Overall: pupils equal, round, reactive to light and accomodation 06/10/2016 None Full Exam - General 1994 Ears/Nose/Throat otoscopic exam Overall: external auditory canals clear 06/10/2016 None Full Exam - General 1994 Ears/Nose/Throat otoscopic exam Overall: tympanic membranes clear 06/10/2016 None Full Exam - General 1994 Ears/Nose/Throat lips/teeth/gingiva Overall: benign lips 06/10/2016 None Full Exam - General 1994 Ears/Nose/Throat lips/teeth/gingiva Overall: normal dentition 06/10/2016 None Full Exam - General 1994 Ears/Nose/Throat lips/teeth/gingiva Overall: benign gingiva 06/10/2016 None Full Exam - General 1994 Ears/Nose/Throat lips/teeth/gingiva Overall: no masses 06/10/2016 None Full Exam - General 1994 Ears/Nose/Throat oral cavity/pharynx/larynx Overall: oral mucosa clear 06/10/2016 None Full Exam - General 1994 Ears/Nose/Throat oral cavity/pharynx/larynx Overall: oropharyngeal mucosa clear 06/10/2016 None Full Exam - General 1994 Ears/Nose/Throat oral cavity/pharynx/larynx Overall: no masses 06/10/2016 None Full Exam - General 1994 Respiratory auscultation Upper lung field: Breath sounds clear 06/10/2016 None Full Exam - General 1994 Respiratory respiratory effort/rhythm Overall: no retractions 06/10/2016 None Full Exam - General 1994 Respiratory respiratory effort/rhythm Overall: normal rate 06/10/2016 None Full Exam - General 1994 Cardiovascular extremities Overall: no clubbing 06/10/2016 None Full Exam - General 1994 Cardiovascular auscultation of heart Overall: regular rate 06/10/2016 None Full Exam - General 1994 Cardiovascular auscultation of heart Overall: normal heart sounds 06/10/2016 None Full Exam - General 1994 Cardiovascular auscultation of heart Overall: no murmurs 06/10/2016 None Full Exam - General 1994 Abdomen abdominal exam Overall: no tenderness 06/10/2016 None Full Exam - General 1994 Abdomen abdominal exam Overall: normal bowel sounds 06/10/2016 None Full Exam - General 1994 Musculoskeletal gait and station Overall: normal gait 06/10/2016 None Full Exam - General 1994 Musculoskeletal gait and station Overall: normal station 06/10/2016 None Full Exam - General 1994 Integument inspection of skin Overall: no rash, lesions 06/10/2016 None Full Exam - General 1994 Psychiatric orientation/consciousness Overall: oriented to person, place and time 06/10/2016 None Full Exam - General 1994 Psychiatric mood and affect Overall: normal mood and affect 06/10/2016 None Full Exam - General 1994 Psychiatric appearance Overall: well-groomed, good eye contact 06/10/2016 None Full Exam - General 1994 Constitutional general appearance Overall: well nourished 04/08/2016 None Full Exam - General 1994 Constitutional general appearance Overall: well developed 04/08/2016 None Full Exam - General 1994 Constitutional general appearance Overall: in no acute distress 04/08/2016 None Full Exam - General 1994 Constitutional general appearance Nourishment: thin 04/08/2016 None Full Exam - General 1994 Constitutional general appearance Hygiene/Attention to Grooming: smells of tobacco 04/08/2016 None Full Exam - General 1994 Eyes conjunctiva /eyelids Overall: conjunctiva clear 04/08/2016 None Full Exam - General 1994 Eyes conjunctiva /eyelids Overall: eyelids normal 04/08/2016 None Full Exam - General 1994 Eyes conjunctiva /eyelids Overall: cornea clear 04/08/2016 None Full Exam - General 1994 Eyes pupils and irises Overall: pupils equal, round, reactive to light and accomodation 04/08/2016 None Full Exam - General 1994 Ears/Nose/Throat oral cavity/pharynx/larynx Overall: oropharyngeal mucosa clear 04/08/2016 None Full Exam - General 1994 Ears/Nose/Throat oral cavity/pharynx/larynx Overall: no masses 04/08/2016 None Full Exam - General 1994 Ears/Nose/Throat oral cavity/pharynx/larynx Overall: oral mucosa clear 04/08/2016 None Full Exam - General 1994 Ears/Nose/Throat lips/teeth/gingiva Overall: benign gingiva 04/08/2016 None Full Exam - General 1994 Ears/Nose/Throat lips/teeth/gingiva Overall: no masses 04/08/2016 None Full Exam - General 1994 Ears/Nose/Throat lips/teeth/gingiva Overall: normal dentition 04/08/2016 None Full Exam - General 1994 Ears/Nose/Throat lips/teeth/gingiva Overall: benign lips 04/08/2016 None Full Exam - General 1994 Ears/Nose/Throat otoscopic exam Overall: tympanic membranes clear 04/08/2016 None Full Exam - General 1994 Ears/Nose/Throat otoscopic exam Overall: external auditory canals clear 04/08/2016 None Full Exam - General 1994 Respiratory respiratory effort/rhythm Overall: normal rate 04/08/2016 None Full Exam - General 1994 Respiratory respiratory effort/rhythm Overall: no retractions 04/08/2016 None Full Exam - General 1994 Respiratory auscultation Lower lung field: expiratory wheezes 04/08/2016 None Full Exam - General 1994 Respiratory auscultation Upper lung field: Breath sounds clear 04/08/2016 None Full Exam - General 1994 Cardiovascular auscultation of heart Overall: regular rate 04/08/2016 None Full Exam - General 1994 Cardiovascular auscultation of heart Overall: normal heart sounds 04/08/2016 None Full Exam - General 1994 Cardiovascular auscultation of heart Overall: no murmurs 04/08/2016 None Full Exam - General 1994 Cardiovascular extremities Overall: no clubbing 04/08/2016 None Full Exam - General 1994 Abdomen abdominal exam Overall: no tenderness 04/08/2016 None Full Exam - General 1994 Abdomen abdominal exam Overall: normal bowel sounds 04/08/2016 None Full Exam - General 1994 Musculoskeletal gait and station Overall: normal station 04/08/2016 None Full Exam - General 1994 Musculoskeletal gait and station Overall: normal gait 04/08/2016 None Full Exam - General 1994 Integument inspection of skin Overall: no rash, lesions 04/08/2016 None Full Exam - General 1994 Psychiatric orientation/consciousness Overall: oriented to person, place and time 04/08/2016 None Full Exam - General 1994 Psychiatric mood and affect Overall: normal mood and affect 04/08/2016 None Full Exam - General 1994 Psychiatric appearance Overall: well-groomed, good eye contact 04/08/2016 None Full Exam - General 1994 Constitutional general appearance Overall: well developed 03/07/2016 None Full Exam - General 1994 Constitutional general appearance Overall: in no acute distress 03/07/2016 None Full Exam - General 1994 Constitutional general appearance Overall: well nourished 03/07/2016 None Full Exam - General 1994 Constitutional general appearance Hygiene/Attention to Grooming: smells of tobacco 03/07/2016 None Full Exam - General 1994 Eyes conjunctiva /eyelids Overall: conjunctiva clear 03/07/2016 None Full Exam - General 1994 Ears/Nose/Throat otoscopic exam Overall: external auditory canals clear 03/07/2016 None Full Exam - General 1994 Ears/Nose/Throat otoscopic exam Overall: tympanic membranes clear 03/07/2016 None Full Exam - General 1994 Cardiovascular auscultation of heart Overall: regular rate 03/07/2016 None Full Exam - General 1994 Cardiovascular auscultation of heart Overall: normal heart sounds 03/07/2016 None Full Exam - General 1994 Abdomen abdominal exam Overall: no tenderness 03/07/2016 None Full Exam - General 1994 Abdomen abdominal exam Overall: normal bowel sounds 03/07/2016 None Full Exam - General 1994 Lymphatic neck nodes Overall: anterior cervical chain benign 03/07/2016 None Full Exam - General 1994 Lymphatic neck nodes Overall: posterior cervical chain benign 03/07/2016 None Full Exam - General 1994 Musculoskeletal head and neck Overall: head atraumatic 03/07/2016 None Full Exam - General 1994 Integument inspection of skin Overall: few scattered moles, no gross abnormalities 03/07/2016 None Full Exam - General 1994 Neurologic cranial nerves Overall: crainial nerves 2 - 12 grossly intact 03/07/2016 None Full Exam - General 1994 Psychiatric orientation/consciousness Overall: oriented to person, place and time 03/07/2016 None Full Exam - General 1994 Respiratory auscultation Diffuse: diminished 03/07/2016 None Full Exam - General 1994 Neurologic motor Appearance: tremor 03/07/2016 head Full Exam - General 1994 Ears/Nose/Throat oral cavity/pharynx/larynx Overall: oropharyngeal mucosa clear 03/07/2016 None Full Exam - General 1994 Ears/Nose/Throat oral cavity/pharynx/larynx Overall: no masses 03/07/2016 None Full Exam - General 1994 Ears/Nose/Throat oral cavity/pharynx/larynx Overall: oral mucosa clear 03/07/2016 None Full Exam - General 1994 Eyes pupils and irises Overall: pupils equal, round, reactive to light and accomodation 03/07/2016 None Full Exam - General 1994 Constitutional general appearance Overall: well developed 09/05/2015 None Full Exam - General 1994 Constitutional general appearance Overall: in no acute distress 09/05/2015 None Full Exam - General 1994 Constitutional general appearance Overall: well nourished 09/05/2015 None Full Exam - General 1994 Eyes conjunctiva /eyelids Overall: conjunctiva clear 09/05/2015 None Full Exam - General 1994 Ears/Nose/Throat otoscopic exam Overall: external auditory canals clear 09/05/2015 None Full Exam - General 1994 Ears/Nose/Throat otoscopic exam Overall: tympanic membranes clear 09/05/2015 None Full Exam - General 1994 Respiratory auscultation Diffuse: diminished 09/05/2015 None Full Exam - General 1994 Cardiovascular auscultation of heart Overall: regular rate 09/05/2015 None Full Exam - General 1994 Cardiovascular auscultation of heart Overall: normal heart sounds 09/05/2015 None Full Exam - General 1994 Abdomen abdominal exam Overall: no tenderness 09/05/2015 None Full Exam - General 1994 Abdomen abdominal exam Overall: normal bowel sounds 09/05/2015 None Full Exam - General 1994 Lymphatic neck nodes Overall: anterior cervical chain benign 09/05/2015 None Full Exam - General 1994 Lymphatic neck nodes Overall: posterior cervical chain benign 09/05/2015 None Full Exam - General 1994 Musculoskeletal head and neck Overall: head atraumatic 09/05/2015 None Full Exam - General 1994 Integument inspection of skin Overall: few scattered moles, no gross abnormalities 09/05/2015 None Full Exam - General 1994 Neurologic cranial nerves Overall: crainial nerves 2 - 12 grossly intact 09/05/2015 None Full Exam - General 1994 Psychiatric orientation/consciousness Overall: oriented to person, place and time 09/05/2015 None Full Exam - General 1994 Constitutional general appearance Hygiene/Attention to Grooming: smells of tobacco 09/05/2015 None Full Exam - General 1994 Ears/Nose/Throat oral cavity/pharynx/larynx Overall: oral mucosa clear 09/05/2015 bilateral maxillary sinus tenderness Full Exam - General 1994 Constitutional general appearance Overall: well developed 08/07/2015 None Full Exam - General 1994 Constitutional general appearance Overall: in no acute distress 08/07/2015 None Full Exam - General 1994 Constitutional general appearance Overall: well nourished 08/07/2015 None Full Exam - General 1994 Eyes conjunctiva /eyelids Overall: conjunctiva clear 08/07/2015 None Full Exam - General 1994 Ears/Nose/Throat otoscopic exam Overall: external auditory canals clear 08/07/2015 None Full Exam - General 1994 Ears/Nose/Throat otoscopic exam Overall: tympanic membranes clear 08/07/2015 None Full Exam - General 1994 Ears/Nose/Throat oral cavity/pharynx/larynx Overall: oral mucosa clear 08/07/2015 None Full Exam - General 1994 Respiratory auscultation Diffuse: diminished 08/07/2015 None Full Exam - General 1994 Cardiovascular auscultation of heart Overall: regular rate 08/07/2015 None Full Exam - General 1994 Cardiovascular auscultation of heart Overall: normal heart sounds 08/07/2015 None Full Exam - General 1994 Abdomen abdominal exam Overall: no tenderness 08/07/2015 None Full Exam - General 1994 Abdomen abdominal exam Overall: normal bowel sounds 08/07/2015 None Full Exam - General 1994 Lymphatic neck nodes Overall: anterior cervical chain benign 08/07/2015 None Full Exam - General 1994 Lymphatic neck nodes Overall: posterior cervical chain benign 08/07/2015 None Full Exam - General 1994 Musculoskeletal head and neck Overall: head atraumatic 08/07/2015 None Full Exam - General 1994 Integument inspection of skin Overall: few scattered moles, no gross abnormalities 08/07/2015 None Full Exam - General 1994 Neurologic cranial nerves Overall: crainial nerves 2 - 12 grossly intact 08/07/2015 None Full Exam - General 1994 Psychiatric orientation/consciousness Overall: oriented to person, place and time 08/07/2015 None Full Exam - General 1994 Musculoskeletal spine, ribs and pelvis Sacroiliac joints: tender left sacroiliac joint 08/07/2015 None Full Exam - General 1994 Constitutional general appearance Hygiene/Attention to Grooming: smells of tobacco 08/07/2015 None Full Exam - General 1994 Constitutional general appearance Overall: well developed 05/16/2015 None Full Exam - General 1994 Constitutional general appearance Overall: in no acute distress 05/16/2015 None Full Exam - General 1994 Constitutional general appearance Overall: well nourished 05/16/2015 None Full Exam - General 1994 Psychiatric orientation/consciousness Overall: oriented to person, place and time 05/16/2015 None Full Exam - General 1994 Neurologic cranial nerves Overall: crainial nerves 2 - 12 grossly intact 05/16/2015 None Full Exam - General 1994 Integument inspection of skin Overall: few scattered moles, no gross abnormalities 05/16/2015 None Full Exam - General 1994 Musculoskeletal head and neck Overall: head atraumatic 05/16/2015 None Full Exam - General 1994 Lymphatic neck nodes Overall: anterior cervical chain benign 05/16/2015 None Full Exam - General 1994 Lymphatic neck nodes Overall: posterior cervical chain benign 05/16/2015 None Full Exam - General 1994 Abdomen abdominal exam Overall: no tenderness 05/16/2015 None Full Exam - General 1994 Abdomen abdominal exam Overall: normal bowel sounds 05/16/2015 None Full Exam - General 1994 Cardiovascular auscultation of heart Overall: regular rate 05/16/2015 None Full Exam - General 1994 Cardiovascular auscultation of heart Overall: normal heart sounds 05/16/2015 None Full Exam - General 1994 Respiratory auscultation Diffuse: diminished 05/16/2015 None Full Exam - General 1994 Ears/Nose/Throat otoscopic exam Overall: external auditory canals clear 05/16/2015 None Full Exam - General 1994 Ears/Nose/Throat otoscopic exam Overall: tympanic membranes clear 05/16/2015 None Full Exam - General 1994 Ears/Nose/Throat oral cavity/pharynx/larynx Overall: oral mucosa clear 05/16/2015 None Full Exam - General 1994 Eyes conjunctiva /eyelids Overall: conjunctiva clear 05/16/2015 None Procedures Procedure Codes Date THER/PROPH/DIAG INJ SC/IM CPT-4: 82988 06/15/2018 TRIAMCINOLONE ACET INJ NOS CPT-4: J3301 06/15/2018 TRIAMCINOLONE ACET INJ NOS CPT-4: J3301 11/13/2017 INJECT TRIGGER POINTS 3/> CPT-4: 22042 11/13/2017 URINALYSIS NONAUTO W/O SCOPE CPT-4: 32226 09/16/2017 ADMIN INFLUENZA VIRUS VAC CPT-4: G0008 07/15/2017 FLU VACC PRSV FREE INC ANTIG CPT-4: 42586 07/15/2017 TOBACCO-USE [employer]GLISH [employer] 3-[address]: 052146548 CPT-4: G0436 04/30/2017 TOBACCO-USE [employer]GLISH [employer] 3-[address]: 651185483 CPT-4: G0436 11/15/2016 URINALYSIS NONAUTO W/O SCOPE CPT-4: 28501 09/09/2016 TOBACCO-USE [employer]ISH [employer] 3-[address]: 680691759 CPT-4: G0436 04/08/2016 TOBACCO-USE [employer]GLISH [employer] 3-[address]: 852744305 CPT-4: G0436 08/07/2015 Vital Signs Date Vital 07/23/2018 Blood Pressure 1: 152/80 Code : 8480-6 BMI: 16.2 Code : 55005-8 Heart Rate 1 : 78 bpm Height: 5'8" SpO2: 97% Weight: 107 lbs 07/10/2018 Blood Pressure 1: 140/66 Code : 8480-6 BMI: 19.5 Code : 13172-6 Heart Rate 1 : 70 bpm Height: 5'2" SpO2: 96% Weight: 106 lbs 06/15/2018 Blood Pressure 1: 164/80 Code : 8480-6 BMI: 20.1 Code : 64194-8 Heart Rate 1 : 75 bpm Height: 5'2" SpO2: 94% Weight: 109 lbs 01/05/2018 Blood Pressure 1: 170/88 Code : 8480-6 BMI: 20.2 Code : 28168-9 Heart Rate 1 : 80 bpm Height: 5'2" SpO2: 97% Weight: 110 lbs 12/08/2017 Blood Pressure 1: 150/80 Code : 8480-6 BMI: 20.2 Code : 37609-8 Heart Rate 1 : 82 bpm Height: 5'2" SpO2: 96% Weight: 110 lbs 11/13/2017 Blood Pressure 1: 146/88 Code : 8480-6 BMI: 19.7 Code : 44054-0 Heart Rate 1 : 75 bpm Height: 5'2" SpO2: 96% Weight: 107 lbs 10/06/2017 Blood Pressure 1: 126/72 Code : 8480-6 BMI: 19.5 Code : 85124-3 Heart Rate 1 : 76 bpm Height: 5'2" SpO2: 94% Weight: 106 lbs 09/16/2017 Blood Pressure 1: 126/78 Code : 8480-6 BMI: 19.9 Code : 68157-7 Heart Rate 1 : 79 bpm Height: 5'2" SpO2: 98% Weight: 108 lbs 07/15/2017 Blood Pressure 1: 142/88 Code : 8480-6 BMI: 20.2 Code : 11352-4 Heart Rate 1 : 81 bpm Height: 5'2" SpO2: 97% Weight: 110 lbs 05/13/2017 Blood Pressure 1: 138/74 Code : 8480-6 BMI: 20.5 Code : 35839-7 Heart Rate 1 : 73 bpm Height: 5'2" SpO2: 93% Weight: 111 lbs 8 oz 04/30/2017 Weight: 113 lbs 04/16/2017 Blood Pressure 1: 134/72 Code : 8480-6 BMI: 20.2 Code : 66941-2 Heart Rate 1 : 86 bpm Height: 5'2" SpO2: 94% Weight: 110 lbs 01/17/2017 Blood Pressure 1: 136/70 Code : 8480-6 BMI: 21.4 Code : 35348-9 Heart Rate 1 : 80 bpm Height: 5'2" SpO2: 95% Weight: 116 lbs 01/01/2017 Blood Pressure 1: 132/70 Code : 8480-6 BMI: 20.8 Code : 93443-8 Heart Rate 1 : 81 bpm Height: 5'2" SpO2: 97% Weight: 113 lbs 12/09/2016 Blood Pressure 1: 136/70 Code : 8480-6 BMI: 20.8 Code : 72332-8 Heart Rate 1 : 80 bpm Height: 5'2" SpO2: 97% Weight: 113 lbs 11/15/2016 Blood Pressure 1: 140/76 Code : 8480-6 BMI: 20.2 Code : 54033-8 Heart Rate 1 : 75 bpm Height: 5'2" SpO2: 98% Temperature: 36.7 (C) / 98.1 (F) Weight: 110 lbs 09/09/2016 Blood Pressure 1: 132/84 Code : 8480-6 BMI: 21.5 Code : 62504-6 Heart Rate 1 : 72 bpm Height: 5'2" SpO2: 94% Weight: 117 lbs 07/11/2016 Blood Pressure 1: 130/72 Code : 8480-6 BMI: 22.1 Code : 26064-3 Heart Rate 1 : 85 bpm Height: 5'2" SpO2: 95% Weight: 120 lbs 06/10/2016 Blood Pressure 1: 126/60 Code : 8480-6 BMI: 22.1 Code : 98682-9 Heart Rate 1 : 83 bpm Height: 5'2" SpO2: 97% Weight: 120 lbs 04/08/2016 Blood Pressure 1: 110/78 Code : 8480-6 BMI: 22.8 Code : 27588-9 Heart Rate 1 : 68 bpm Height: 5'2" SpO2: 96% Weight: 124 lbs 03/07/2016 Blood Pressure 1: 130/80 Code : 8480-6 BMI: 23.6 Code : 29478-6 Heart Rate 1 : 64 bpm Height: 5'2" SpO2: 96% Weight: 128 lbs 09/05/2015 Blood Pressure 1: 122/62 Code : 8480-6 BMI: 23.6 Code : 51297-6 Heart Rate 1 : 79 bpm Height: 5'2" SpO2: 94% Weight: 128 lbs 08/07/2015 Blood Pressure 1: 138/80 Code : 8480-6 BMI: 23.9 Code : 70775-3 Heart Rate 1 : 76 bpm Height: 5'2" SpO2: 97% Weight: 130 lbs 05/16/2015 Blood Pressure 1: 132/82 Code : 8480-6 BMI: 25.2 Code : 88818-1 Heart Rate 1 : 72 bpm Height: 5'2" Weight: 137 lbs Functional Status No Functional Status data History of Present Illness Symptom Name Status Result Effective Date Notes hypertension Quality intermittent 07/23/2018 None hypertension Onset of Symptom during adulthood 07/23/2018 None earache Location both ears 07/10/2018 None earache Onset of Symptom 1 weeks ago 07/10/2018 None earache Frequency of Episodes daily 07/10/2018 None hypertension Quality constant 07/10/2018 None hypertension Onset and Resolution ongoing 07/10/2018 None hypertension Onset of Symptom during adulthood 07/10/2018 None medication follow up Additional Comments medication use 07/10/2018 None medication follow up Location oral intake 07/10/2018 None earache Onset and Resolution ongoing 07/10/2018 None earache Location both ears 06/15/2018 None earache Onset and Resolution sudden in onset 06/15/2018 None earache Onset of Symptom 1 weeks ago 06/15/2018 None earache Frequency of Episodes daily 06/15/2018 None hypertension Quality constant 06/15/2018 None hypertension Onset and Resolution ongoing 06/15/2018 None hypertension Onset of Symptom during adulthood 06/15/2018 None hypertension Quality intermittent 01/05/2018 None hypertension Quality primary hypertension 01/05/2018 None hypertension Onset and Resolution ongoing 01/05/2018 None hypertension Onset of Symptom during adulthood 01/05/2018 None hypertension Blood Pressure Values pt checking blood pressure - see scanned document 01/05/2018 None hypertension Alleviating Factors medication 01/05/2018 None spasms/spasticity Location diffusely 01/05/2018 None spasms/spasticity Quality constant 01/05/2018 None spasms/spasticity Onset and Resolution ongoing 01/05/2018 None spasms/spasticity Frequency of Episodes unchanged 01/05/2018 None spasms/spasticity Alleviating Factors medication 01/05/2018 None hypertension Quality primary hypertension 12/08/2017 None hypertension Quality intermittent 12/08/2017 None hypertension Onset and Resolution ongoing 12/08/2017 None hypertension Onset of Symptom during adulthood 12/08/2017 None hypertension Blood Pressure Values pt checking blood pressure - see scanned document 12/08/2017 None hypertension Severity mild 12/08/2017 None hypertension Alleviating Factors medication 12/08/2017 None arm pain Quality sharp pain 11/13/2017 None arm pain Quality throbbing 11/13/2017 None arm pain Quality acute 11/13/2017 None arm pain Quality constant 11/13/2017 None arm pain Quality worsening 11/13/2017 None arm pain Quality electricity 11/13/2017 None arm pain Quality tingling 11/13/2017 None arm pain Radiating left trapezius 11/13/2017 None arm pain Radiating right trapezius 11/13/2017 None arm pain Radiating Right Shoulder 11/13/2017 None arm pain Radiating to the hand 11/13/2017 None arm pain Severity severe 11/13/2017 None arm pain Limitation on Activities restricts weight bearing activity 11/13/2017 None arm pain Limitation on Activities moderately limits activities 11/13/2017 None arm pain Onset of Symptom 3 weeks ago 11/13/2017 pain started arm pain 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 11/13/2017 None arm pain Extent of Symptoms weakness of right upper extremity 11/13/2017 None arm pain Mechanism of injury unknown 11/13/2017 None arm pain Mechanism of injury overuse 11/13/2017 None arm pain Associated Injuries shoulder 11/13/2017 None arm pain Pertinent Findings female 11/13/2017 None arm pain Pertinent Findings right hand dominant 11/13/2017 None arm pain Pertinent Findings sleep disturbances 11/13/2017 None arm pain Pertinent Findings impaired work tolerance 11/13/2017 None arm pain Pertinent Findings pain with movement 11/13/2017 None arm pain Pertinent Findings poor fitness level 11/13/2017 None arm pain Exacerbating Factors motion 11/13/2017 None arm pain Significant Medications NSAID's 11/13/2017 None hypertension Quality primary hypertension 10/06/2017 None hypertension Quality stable 10/06/2017 None hypertension Onset and Resolution ongoing 10/06/2017 None hypertension Onset of Symptom during adulthood 10/06/2017 None hypertension Blood Pressure Values patient checking blood pressure at home - did not bring in readings 10/06/2017 -Checks occasionally hypertension Severity not consistently severe symptoms, the symptoms fluctuate from no symptoms to anxiety and headaches 10/06/2017 None hypertension Frequency of Episodes unchanged 10/06/2017 None hypertension Triggers no known associated factors 10/06/2017 None hypertension Alleviating Factors medication 10/06/2017 None hypertension Pertinent Findings anxiety 10/06/2017 None hypertension Pertinent Findings dizziness 10/06/2017 None hypertension Pertinent Findings Denies dyspnea 10/06/2017 None hypertension Pertinent Findings Denies edema 10/06/2017 None anxiety Quality worsening 10/06/2017 None anxiety Onset and Resolution ongoing 10/06/2017 None anxiety Limitation on Activities does not limit activities 10/06/2017 None anxiety Frequency of Episodes increasing 10/06/2017 None anxiety Triggers stress 10/06/2017 is ill anxiety Alleviating Factors medication 10/06/2017 (xanax) medication follow up Additional Comments medication use 10/06/2017 None medication follow up Additional Comments medication: citalopram 10/06/2017 None medication follow up Location oral intake 10/06/2017 None hypertension Quality primary hypertension 09/16/2017 None hypertension Onset and Resolution ongoing 09/16/2017 None hypertension Onset of Symptom during adulthood 09/16/2017 None hypertension Blood Pressure Values patient checking blood pressure at home - did not bring in readings 09/16/2017 -Checks occasionally hypertension Pertinent Findings dizziness 09/16/2017 None hypertension Pertinent Findings Denies dyspnea 09/16/2017 None hypertension Pertinent Findings anxiety 09/16/2017 None hypertension Pertinent Findings Denies edema 09/16/2017 None hypertension Quality stable 09/16/2017 None anxiety Onset and Resolution ongoing 09/16/2017 None anxiety Quality worsening 09/16/2017 None anxiety Frequency of Episodes increasing 09/16/2017 None anxiety Alleviating Factors medication 09/16/2017 (xanax) hypertension Severity not consistently severe symptoms, the symptoms fluctuate from no symptoms to anxiety and headaches 09/16/2017 None hypertension Frequency of Episodes unchanged 09/16/2017 None hypertension Triggers no known associated factors 09/16/2017 None hypertension Alleviating Factors medication 09/16/2017 None anxiety Limitation on Activities does not limit activities 09/16/2017 None anxiety Triggers stress 09/16/2017 is ill blood pressure followup Quality chronic 07/15/2017 None blood pressure followup Onset and Resolution ongoing 07/15/2017 None blood pressure followup Onset of Symptom during adulthood 07/15/2017 None blood pressure followup Blood Pressure Values pt checking blood pressure at home, did not bring in to clinic 07/15/2017 None blood pressure followup Severity mild 07/15/2017 None blood pressure followup Frequency of Episodes unchanged 07/15/2017 None blood pressure followup Triggers no known associated factors 07/15/2017 None blood pressure followup Alleviating Factors medication 07/15/2017 None blood pressure followup Exacerbating Factors medication 07/15/2017 None back pain Location diffusely 05/13/2017 None back pain Quality aching 05/13/2017 None back pain Quality constant 05/13/2017 None back pain Onset and Resolution ongoing 05/13/2017 None back pain Pertinent Findings Denies chills 05/13/2017 None back pain Pertinent Findings Denies morning stiffness 05/13/2017 None weight loss Quality stable 05/13/2017 None weight loss Onset and Resolution ongoing 05/13/2017 None weight loss Onset of Symptom _ months ago 05/13/2017 None weight loss Diet is unchanged 05/13/2017 None weight loss Triggers unintentional weight loss 05/13/2017 None weight loss Alleviating Factors change in dietary habits 05/13/2017 None weight loss Pertinent Findings Denies cough 05/13/2017 None weight loss Pertinent Findings Denies fever 05/13/2017 None weight loss Pertinent Findings Denies syncope 05/13/2017 None weight loss Pertinent Findings Denies vomiting 05/13/2017 None back pain Location diffusely 04/16/2017 None back pain Quality aching 04/16/2017 None back pain Quality constant 04/16/2017 None back pain Onset and Resolution ongoing 04/16/2017 None back pain Pertinent Findings Denies morning stiffness 04/16/2017 None back pain Pertinent Findings Denies chills 04/16/2017 None dyspepsia Quality burning 01/17/2017 None dyspepsia Quality upset stomach 01/17/2017 None dyspepsia Onset and Resolution ongoing 01/17/2017 None dyspepsia Pertinent Findings heartburn 01/17/2017 None dyspepsia Pertinent Findings bloating 01/17/2017 None dyspepsia Pertinent Findings poor weight gain 01/17/2017 None dyspepsia Pertinent Findings early satiety 01/17/2017 None arm pain Location right arm 01/01/2017 None arm pain Quality sharp pain 01/01/2017 None arm pain Quality constant 01/01/2017 None arm pain Quality aching 01/01/2017 None arm pain Quality stabbing 01/01/2017 None arm pain Onset and Resolution sudden in onset 01/01/2017 None arm pain Onset of Symptom 1 days ago 01/01/2017 None weight loss Quality stable 12/09/2016 None weight loss Onset and Resolution ongoing 12/09/2016 None weight loss Onset of Symptom _ months ago 12/09/2016 None weight loss Diet is unchanged 12/09/2016 None weight loss Triggers unintentional weight loss 12/09/2016 None weight loss Alleviating Factors change in dietary habits 12/09/2016 None weight loss Pertinent Findings Denies cough 12/09/2016 None weight loss Pertinent Findings Denies fever 12/09/2016 None weight loss Pertinent Findings Denies syncope 12/09/2016 None weight loss Pertinent Findings Denies vomiting 12/09/2016 None nausea Frequency of Episodes daily 11/15/2016 None nausea Onset of Symptom 3 days ago 11/15/2016 None nausea Pertinent Findings chills 11/15/2016 None nausea Pertinent Findings bloating 11/15/2016 None nausea Pertinent Findings lightheadedness 11/15/2016 None nausea Onset and Resolution sudden in onset 11/15/2016 None abdominal pain Location in the periumbilical area 11/15/2016 None abdominal pain Quality aching 11/15/2016 None blood pressure followup Quality intermittent 09/09/2016 None blood pressure followup Onset and Resolution ongoing 09/09/2016 None blood pressure followup Blood Pressure Values pt checking blood pressure at home, did not bring in to clinic 09/09/2016 None blood pressure followup Severity mild 09/09/2016 None blood pressure followup Frequency of Episodes daily 09/09/2016 None blood pressure followup Significant Medications tobacco 09/09/2016 None blood pressure followup Triggers no known associated factors 09/09/2016 None blood pressure followup Pertinent Findings Denies anxiety 09/09/2016 None blood pressure followup Pertinent Findings Denies dizziness 09/09/2016 None blood pressure followup Pertinent Findings Denies dyspnea 09/09/2016 None blood pressure followup Pertinent Findings Denies edema 09/09/2016 None blood pressure followup Pertinent Findings Denies tachycardia 09/09/2016 None chest pain/pressure Location diffusely 07/11/2016 None chest pain/pressure Location on the left side of on the chest 07/11/2016 None chest pain/pressure Radiating the left shoulder 07/11/2016 None chest pain/pressure Radiating the back 07/11/2016 None chest pain/pressure Radiating the left arm 07/11/2016 None chest pain/pressure Radiating the neck 07/11/2016 None chest pain/pressure Quality acute 07/11/2016 None chest pain/pressure Quality heavy 07/11/2016 None chest pain/pressure Quality pressure 07/11/2016 None chest pain/pressure Onset and Resolution sudden in onset 07/11/2016 None chest pain/pressure Onset of Symptom 3 days ago 07/11/2016 None chest pain/pressure Pertinent Findings Denies fever 07/11/2016 None chest pain/pressure Pertinent Findings nausea 07/11/2016 None blood pressure followup Quality intermittent 06/10/2016 None blood pressure followup Onset and Resolution ongoing 06/10/2016 None blood pressure followup Blood Pressure Values pt checking blood pressure at home, did not bring in to clinic 06/10/2016 None blood pressure followup Frequency of Episodes daily 06/10/2016 None blood pressure followup Pertinent Findings Denies anxiety 06/10/2016 None blood pressure followup Pertinent Findings Denies dizziness 06/10/2016 None blood pressure followup Pertinent Findings Denies dyspnea 06/10/2016 None blood pressure followup Pertinent Findings Denies edema 06/10/2016 None blood pressure followup Pertinent Findings Denies tachycardia 06/10/2016 None blood pressure followup Severity mild 06/10/2016 None blood pressure followup Significant Medications tobacco 06/10/2016 None blood pressure followup Triggers no known associated factors 06/10/2016 None blood pressure followup Quality intermittent 04/08/2016 None blood pressure followup Onset and Resolution ongoing 04/08/2016 None blood pressure followup Blood Pressure Values pt checking blood pressure at home, did not bring in to clinic 04/08/2016 None blood pressure followup Frequency of Episodes daily 04/08/2016 None blood pressure followup Pertinent Findings Denies anxiety 04/08/2016 None blood pressure followup Pertinent Findings Denies dizziness 04/08/2016 None blood pressure followup Pertinent Findings Denies dyspnea 04/08/2016 None blood pressure followup Pertinent Findings Denies edema 04/08/2016 None blood pressure followup Pertinent Findings Denies tachycardia 04/08/2016 None spasms/spasticity Location on both hands 04/08/2016 and her head spasms/spasticity Onset and Resolution ongoing 04/08/2016 None spasms/spasticity Pertinent Findings Denies back pain 04/08/2016 None spasms/spasticity Pertinent Findings Denies neck pain 04/08/2016 None spasms/spasticity Onset of Symptom 2 months ago 04/08/2016 None blood pressure followup Quality intermittent 03/07/2016 None blood pressure followup Onset and Resolution ongoing 03/07/2016 None blood pressure followup Blood Pressure Values pt checking blood pressure at home, did not bring in to clinic 03/07/2016 None blood pressure followup Frequency of Episodes daily 03/07/2016 None blood pressure followup Pertinent Findings Denies anxiety 03/07/2016 None blood pressure followup Pertinent Findings Denies dizziness 03/07/2016 None blood pressure followup Pertinent Findings Denies dyspnea 03/07/2016 None blood pressure followup Pertinent Findings Denies edema 03/07/2016 None blood pressure followup Pertinent Findings Denies tachycardia 03/07/2016 None spasms/spasticity Location on both hands 03/07/2016 and her head spasms/spasticity Onset and Resolution ongoing 03/07/2016 None spasms/spasticity Pertinent Findings Denies back pain 03/07/2016 None spasms/spasticity Pertinent Findings Denies neck pain 03/07/2016 None back pain Location lumbar-sacral spine 09/05/2015 None back pain Quality constant 09/05/2015 None back pain Quality intermittent 09/05/2015 None back pain Onset and Resolution ongoing 09/05/2015 None back pain Limitation on Activities does not limit activities 09/05/2015 None back pain Frequency of Episodes increasing 09/05/2015 None back pain Triggers activity 09/05/2015 None back pain Alleviating Factors rest 09/05/2015 None back pain Radiating down left leg 09/05/2015 None back pain Pertinent Findings extremity numbness 09/05/2015 None back pain Pertinent Findings Denies sleep disturbance 09/05/2015 None back pain Pertinent Findings weight loss 09/05/2015 None sinus congestion Onset and Resolution ongoing 09/05/2015 None sinus congestion Onset of Symptom _ weeks ago 09/05/2015 None sinus congestion Severity moderate 09/05/2015 None sinus congestion Frequency of Episodes increasing 09/05/2015 None sinus congestion Timing of Episodes all day long 09/05/2015 None sinus congestion Triggers no known associated factors 09/05/2015 None sinus congestion Exacerbating Factors allergen exposure 09/05/2015 None Hospital Follow Up _ pain 08/07/2015 None Hospital Follow Up Location diffusely 08/07/2015 None Hospital Follow Up Pertinent Findings pain 08/07/2015 None back pain Location lumbar-sacral spine 08/07/2015 None back pain Quality constant 08/07/2015 None back pain Quality intermittent 08/07/2015 None back pain Onset and Resolution ongoing 08/07/2015 None back pain Radiating down left leg 08/07/2015 None back pain Pertinent Findings extremity numbness 08/07/2015 None back pain Pertinent Findings Denies sleep disturbance 08/07/2015 None back pain Pertinent Findings weight loss 08/07/2015 None back pain Limitation on Activities does not limit activities 08/07/2015 None back pain Frequency of Episodes increasing 08/07/2015 None back pain Triggers activity 08/07/2015 None back pain Alleviating Factors rest 08/07/2015 None back pain Mechanism of injury unknown 08/07/2015 None back pain Sports Participation not significant 08/07/2015 None ~generic Location diffusely 05/16/2015 muscle aches, especially in chest- ongoing , more so the last few weeks- wonders if it is due to stress with arm pain Location left arm 05/16/2015 2014 had shoulder surgery- cant lift arm up - feels like muscle pulls into her shoulder- painful arm pain Radiating Left Shoulder 05/16/2015 None paresthesia Location on both legs 05/16/2015 uses Gabapentin paresthesia Onset and Resolution ongoing 05/16/2015 None paresthesia Quality pins and needles 05/16/2015 feels like bugs crawling back pain Location in the left lower back area 05/16/2015 None back pain Location in the right lower back area 05/16/2015 fell 11 years ago on ice- had compression fracture back pain Onset of Symptom 11 years ago 05/16/2015 None ~generic Quality chronic 05/16/2015 None paresthesia Onset of Symptom _ years ago 05/16/2015 None paresthesia Limitation on Activities does not limit activities 05/16/2015 None paresthesia Frequency of Episodes increasing 05/16/2015 None paresthesia Triggers no known associated factors 05/16/2015 None paresthesia Alleviating Factors rest 05/16/2015 None paresthesia Exacerbating Factors activity 05/16/2015 None arm pain Onset and Resolution ongoing 05/16/2015 None arm pain Limitation on Activities restricts weight bearing activity 05/16/2015 None arm pain Severity moderate 05/16/2015 limited ADLs arm pain Frequency of Episodes unchanged 05/16/2015 None back pain Onset and Resolution worse during the day 05/16/2015 None back pain Quality chronic 05/16/2015 None back pain Limitation on Activities does not limit activities 05/16/2015 None back pain Frequency of Episodes unchanged 05/16/2015 None back pain Triggers no known associated factors 05/16/2015 None back pain Significant Medical Conditions spinal stenosis 05/16/2015 None back pain Initial treatment medication 05/16/2015 None back pain Mechanism of injury unknown 05/16/2015 None back pain Radiating does not radiate 05/16/2015 None ~generic Onset of Symptom _ weeks ago 05/16/2015 None ~generic Onset and Resolution ongoing 05/16/2015 None ~generic Severity moderate 05/16/2015 None arm pain Significant Medical Conditions osteoporosis 05/16/2015 None arm pain Mechanism of injury unknown 05/16/2015 None Advance Directives No Advance Directive data Encounters Encounter Performer Location Codes Date [id number] EST. PATIENT, LEVEL III Diagnosis: Essential (primary) hypertension[ICD10: I10] Diagnosis: Other hypotension[ICD10: I95.89] Val Cota MD, [facility] CPT- 4: 03336 07/23/2018 73083 EST. PATIENT, LEVEL IV Diagnosis: Hypokalemia[ICD10: E87.6] Diagnosis: Essential (primary) hypertension[ICD10: I10] Diagnosis: Other allergic rhinitis[ICD10: J30.89] Val Cota MD, [facility] CPT-4: 78227 07/10/2018 02586 EST. PATIENT, LEVEL IV Diagnosis: Other acute sinusitis[ICD10: J01.80] Diagnosis: Other allergic rhinitis[ICD10: J30.89] Diagnosis: Essential (primary) hypertension[ICD10: I10] Diagnosis: Hypokalemia[ICD10: E87.6] Val Cota MD, [facility] CPT-4: 24284 06/15/2018 ([id number]) 80163 EST. PATIENT, LEVEL IV Diagnosis: Essential (primary) hypertension[ICD10: I10] Diagnosis: Restless legs syndrome[ICD10: G25.81] Diagnosis: Essential tremor[ICD10: G25.0] Lilia Cota MD, [facility] CPT- 4: 60049 01/05/2018 ([id number]) [id number] EST. PATIENT, LEVEL IV Diagnosis: Essential (primary) hypertension[ICD10: I10] Diagnosis: Restless legs syndrome[ICD10: G25.81] Lilia Cota MD, [facility] CPT-4: 11990 12/08/2017 ([id number]) 44987 EST. PATIENT, LEVEL III Diagnosis: Pain in right shoulder[ICD10: M25.511] Diagnosis: Pain in left shoulder[ICD10: M25.512] Diagnosis: Cervicalgia[ICD10: M54.2] Diagnosis: Other muscle spasm[ICD10: M62.838] Diagnosis: Restless legs syndrome[ICD10: G25.81] Lilia Cota MD, [facility] CPT-4: 24219 11/13/2017 ([id number]) [id number] EST. PATIENT, LEVEL III Diagnosis: Generalized anxiety disorder[ICD10: F41.1] Diagnosis: Left lower quadrant pain[ICD10: R10.32] Brynn Cota MD, [facility] CPT-4: 80874 10/06/2017 ([id number]) 67315 EST. PATIENT, LEVEL IV Diagnosis: Generalized anxiety disorder[ICD10: F41.1] Diagnosis: Left lower quadrant pain[ICD10: R10.32] Diagnosis: Essential (primary) hypertension[ICD10: I10] Brynn Cota MD, [facility] CPT-4: 31291 09/16/2017 ([id number]) [id number] EST. PATIENT, LEVEL III Diagnosis: Essential (primary) hypertension[ICD10: I10] Diagnosis: Generalized anxiety disorder[ICD10: F41.1] Diagnosis: Encounter for immunization[ICD10: Z23] Brynn Cota MD, [facility] CPT-4: 02390 07/15/2017 [id number] EST. PATIENT, LEVEL III Diagnosis: Abnormal weight loss[ICD10: R63.4] Diagnosis: Generalized anxiety disorder[ICD10: F41.1] Brynn Cota MD, [facility] CPT-4: 06599 05/13/2017 ([id number]) Miscellaneous no charge Diagnosis: Abnormal weight loss[ICD10: R63.4] Lilia Cota MD, [facility] CPT-4: 60977 04/30/2017 [id number] EST. PATIENT, LEVEL III Diagnosis: Abnormal weight loss[ICD10: R63.4] Diagnosis: Pain in thoracic spine[ICD10: M54.6] Diagnosis: Low back pain[ICD10: M54.5] Val Cota MD, [facility] CPT-4 : 04069 04/16/2017 ([id number]) 18681 EST. PATIENT, LEVEL III Diagnosis: Gastro-esophageal reflux disease without esophagitis[ICD10: K21.9] Diagnosis: Generalized anxiety disorder[ICD10: F41.1] Brynn Cota MD, [facility] CPT-4: 26091 01/17/2017 31393 EST. PATIENT, LEVEL III Diagnosis: Pain in right upper arm[ICD10: M79.621] Val Cota MD, [facility] CPT-4: 85245 01/01/2017 ([id number]) 72654 EST. PATIENT, LEVEL III Diagnosis: Generalized anxiety disorder[ICD10: F41.1] Diagnosis: Abnormal weight loss[ICD10: R63.4] Brynn Cota MD, [facility] CPT-4: 52197 12/09/2016 ([id number]) 84920 EST. PATIENT, LEVEL IV Diagnosis: Essential (primary) hypertension[ICD10: I10] Diagnosis: Abnormal weight loss[ICD10: R63.4] Diagnosis: Generalized abdominal pain[ICD10: R10.84] Diagnosis: Tobacco use[ICD10: Z72.0] Diagnosis: Generalized anxiety disorder[ICD10: F41.1] Brynn Cota MD, [facility] CPT-4: 74530 11/15/2016 ([id number]) 12232 EST. PATIENT, LEVEL IV Diagnosis: Essential (primary) hypertension[ICD10: I10] Diagnosis: Mixed hyperlipidemia[ICD10: E78.2] Diagnosis: Impaired fasting glucose[ICD10: R73.01] Diagnosis: Dysuria[ICD10: R30.0] Diagnosis: Abnormal weight loss[ICD10: R63.4] Brynn Cota MD, [facility] CPT-4: 64137 09/09/2016 68063 EST. PATIENT, LEVEL IV Diagnosis: Other chest pain[ICD10: R07.89] Val Cota MD, [facility] CPT-4 : 33937 07/11/2016 ([id number]) 05671 EST. PATIENT, LEVEL III Diagnosis: Essential (primary) hypertension[ICD10: I10] Diagnosis: Hypokalemia[ICD10: E87.6] Diagnosis: Encounter for screening mammogram for malignant neoplasm of breast[ ICD10: Z12.31] Brynn Cota MD, [facility] CPT-4: 50792 06/10/2016 ([id number]) 36959 EST. PATIENT, LEVEL III Diagnosis: Essential (primary) hypertension[ICD10: I10] Diagnosis: Tobacco use[ICD10: Z72.0] Diagnosis: Radiculopathy, lumbar region[ICD10: M54.16] Brynn Cota MD, [facility] CPT-4: 36219 04/08/2016 ([id number]) 58572 EST. PATIENT, LEVEL III Diagnosis: Mixed hyperlipidemia[ICD10: E78.2] Diagnosis: Cramp and spasm[ICD10: R25.2] Diagnosis: Essential (primary) hypertension[ICD10: I10] Brynn Cota MD, [facility] CPT-4: 43496 03/07/2016 ([id number]) 15861 EST. PATIENT, LEVEL III Diagnosis: Acute maxillary sinusitis, unspecified[ICD10: J01.00] Brynn Cota MD, [facility] CPT-4: 21283 09/05/2015 ([id number]) 24796 EST. 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] Diagnosis: Sciatica, left side[ICD10: M54.32] Diagnosis: Nicotine dependence, unspecified, uncomplicated[ICD10: F17.200] Diagnosis: Encounter for follow-up examination after completed treatment for conditions other than malignant neoplasm[ICD10: Z09] Diagnosis: Hypokalemia[ICD10: E87.6] [facility] CPT-4: 89948 08/07/2015 ([id number]) OFFICE VISIT, NEW - LEVEL 3 Diagnosis: Hyperlipidemia[ICD9: 272.4] Diagnosis: Osteoporosis[ICD9: 733.00] Diagnosis: Tobacco use[ICD9: 305.1] [facility] CPT-4: 21287 05/16/2015 Plan of Care Planned Activity Notes Codes Status Date Visit Plan: Intermittent hypertension and hypotension - pt is on chronic antihypertensive medication - the medication has been adjusted down to attempt to alleviate the low blood pressures. The patient has been counseled to cut back on salt in diet for a no added salt diet, low fat diet, start an exercise program with low weight bearing exercises and higher aerobic activity for heart health. The patient is to check blood pressure readings as an outpatient and either fax, call, or email the readings to the office next week for practitioner to review. The pt is to call for acute concerns. 07/23/2018 App[facility]ment[facility] [address] [facility] ([facility] Complex 07/23/2018 Patient Education: Patient Medication Summary Completed 07/23/2018 Visit Plan: Hypertension - well controlled - continue with current medications, continue with no added salt diet. Pt has been encouraged to exercise daily. The pt has been advised to call the office if there are any acute concerns about change in blood pressure readings at home. Allergies - chronic - recommended pt to use allergy medication as prescribed. Pt has been counseled as to the appropriate use of the medication. Pt to call if allergy symptoms are not controlled with the medication. If using nasal spray, instructions as follows: Nasal spray- use twice daily, one spray per nostril twice daily, after 30 minutes, rinse out nose with saline spray.. Use opposite hand per nostril to spray in the nasal steroid allergy spray. 07/10/2018 Appointment: [facility] [address] [facility] (15 min) Moderate 07/10/2018 Patient Education: Patient Medication Summary Completed 07/10/2018 Visit Plan: Sinusitis - Pt has acute infection - pain in face, maxillary region, Pt informed to use decongestant, RX given to patient, sinus rinses also recommended. Call if symptoms do not show improvement. Allergies - chronic - recommended pt to use allergy medication as prescribed. Pt has been counseled as to the appropriate use of the medication. Pt to call if allergy symptoms are not controlled with the medication. If using nasal spray , instructions as follows: Nasal spray- use twice daily, one spray per nostril twice daily, after 30 minutes, rinse out nose with saline spray.. Use opposite hand per nostril to spray in the nasal steroid allergy spray. Hypertension - uncontrolled - the patient's medications have been modified as documented in the visit note. The patient has been counseled to cut back on salt in diet for a no added salt diet, low fat diet, start an exercise program with low weight bearing exercises and higher aerobic activity for heart health. The patient is to check blood pressure readings as an outpatient and either fax, call, or email the readings to the office next week for practitioner to review. The pt is to call for acute concerns. 06/15/2018 Appointment: Val Rojas WPtel[facility] [place] (15 min) Moderate 06/15/2018 Patient Education: Patient Medication Summary Completed 06/15/2018 Appointment: Val Rojas WPtel: [facility] [place] (30 min) Complex 03/31/2018 Appointment: Lilia [facility]ota [facility]Ptel[facility] [place] (15 min) Moderate 03/02/2018 Visit Plan: Uncontrolled hypertension - renal artery ultrasound to be scheduled - we will send a copy of note to dr. chu. 1/2 of the losartan in the morning and 1/2 in the evening. Tremor and peripheral neuropathy - increase the gabapentin to 1 pill in the morning and 2 pills at night. 01/05/2018 Appointment: Lilia Cota WPtel[facility] [place] (15 min) Moderate 01/05/2018 Patient Education: Patient Medication Summary Completed 01/05/2018 Appointment: Brynn Davison WPtel: [facility]5 [phone] [place] (30 min) Complex 12/25/2017 Visit Plan: Hypertension - uncontrolled - the patient's medications have been modified as documented in the visit note. The patient has been counseled to cut back on salt in diet for a no added salt diet, low fat diet, start an exercise program with low weight bearing exercises and higher aerobic activity for heart health. The patient is to check blood pressure readings as an outpatient and either fax, call, or email the readings to the office next week for practitioner to review. The pt is to call for acute concerns. Start on losartan 25mg tablet - one time daily - this is to be taken at bedtime to help lower your night time and morning blood pressures. This is a very low dose of blood pressure medication. Restless leg syndrome - the Requip ( for the tremors) is being increased to 1mg twice daily. 12/08/2017 Appointment: Lilia Cota WPtel: [address] [place], [place] [id number] (15 min) Moderate 12/08/2017 Patient Education: Patient Medication Summary Completed 12/08/2017 Appointment: Lilia Cota WPtel: [address] [place], [place] [phone] (15 min) Moderate 11/26/2017 Appointment: Lilia Cota WPtel: [address] [place], [place] [phone] (15 min) Moderate 11/25/2017 Visit Plan: Restless Leg Syndrome - uncontrolled symptoms - I have recommended pt to start on a low dose of requip. Trigger Points - Injected trigger points today, pt given post-injection instructions, signs and symptoms for which to call the office. Pt to use heat to the muscles today, and take an anti-inflammatory today unless otherwise contraindicated by renal function or other disease process. 11/13/2017 Appointment: Lilia Cota WPtel: [address] [place], [place] [phone] (15 min) Moderate 11/13/2017 Patient Education: Patient Medication Summary Completed 11/13/2017 Visit Plan: Anxiety - the patient has uncontrolled anxiety and will benefit from an INCREASE IN SSRI to attempt control of the symptoms of anxiety (tachycardia, overwhelming sensations, stress, insomnia, etc). I also believe that the patient will benefit from very low dose of prn benzodiazepine. Pt is aware of the risks and benefits of treatment with the above medications. Urinary frequency-lower abdominal pain-UA negative-CT scan negative-recommend patient try prelief otc-consider referral to urologist for evaluation if symptoms do not improve 10/06/2017 Appointment: Brynn Davison WPtel: [phone] (30 min) Complex 10/06/2017 Patient Education: Patient Medication Summary Completed 10/06/2017 Patient Education: Smoking and Tobacco Addiction Completed 10/06/2017 Patient Education: Hypertension Completed 10/06/2017 Visit Plan: Anxiety - the patient has uncontrolled anxiety and will benefit from an SSRI on a daily basis to attempt control of the symptoms of anxiety (tachycardia, overwhelming sensations, stress, insomnia, etc ). I also believe that the patient will benefit from very low dose of prn benzodiazepine. Pt is aware of the risks and benefits of treatment with the above medications. Hypertension - well controlled - continue with current medications, continue with no added salt diet. Pt has been encouraged to exercise daily. The pt has been advised to call the office if there are any acute concerns about change in blood pressure readings at home. LLQ pain-UA negative-will evaluate CT scan abdomen/pelvis 09/16/2017 Appointment: Brynn Davison WPtel: [phone] (30 min) Complex 09/16/2017 Patient Education: Patient Medication Summary Completed 09/16/2017 Patient Education: Smoking and Tobacco Addiction Completed 09/16/2017 Patient Education: Hypertension Completed 09/16/2017 Visit Plan: Hypertension - well controlled - continue with current medications, continue with no added salt diet. Pt has been encouraged to exercise daily. The pt has been advised to call the office if there are any acute concerns about change in blood pressure readings at home. Chronic Depression and anxiety - the pt has symptoms of chronic anxiety and depression that have been fairly well controlled since the last office visit. The pt has expected periods of exacerbation with abatement of the symptoms with change in situational exposure. No change in current medications. 07/15/2017 Appointment: Brynn Davison WPtel: [facility]5 [phone] (30 min) Complex 07/15/2017 Patient Education: Patient Medication Summary Completed 07/15/2017 Patient Education: Smoking and Tobacco Addiction Completed 07/15/2017 Patient Education: Hypertension Completed 07/15/2017 Visit Plan: Weight cnfd-kasqgc-ezlkhowg ensure-follow up in 2 months Chronic Depression and anxiety - the pt has symptoms of chronic anxiety and depression that have been fairly well controlled since the last office visit. The pt has expected periods of exacerbation with abatement of the symptoms with change in situational exposure. No change in current medications. 05/13/2017 Appointment: Brynn Davison WPtel: [facility]4 [phone] (30 min) Complex 05/13/2017 Patient Education: Patient Medication Summary Completed 05/13/2017 Patient Education: Smoking and Tobacco Addiction Completed 05/13/2017 Care Plan: Comp Metabolic Cancelled 05/13/2017 Care Plan: Cbc With Differential Cancelled 05/13/2017 Care Plan: Tsh Cancelled 05/13/2017 Appointment: Nurse Visit 04/30/2017 Patient Education: Patient Medication Summary Completed 04/30/2017 Patient Education: Smoking and Tobacco Addiction Completed 04/30/2017 Visit Plan: Low back pain- the patient was instructed in appropriate posture. The pt is to use prn antiinflammatories to manage acute pain. The patient is to call the office if the pain is worsening or does not improve. Weight loss - will check labs - pt is to increase her ensures to 2 a day, pt is encouraged to eat protein - will have pt return to clinic in 2 weeks for weight check. 04/16/2017 Patient Education: Patient Medication Summary Completed 04/16/2017 Patient Education: Smoking and Tobacco Addiction Completed 04/16/2017 Appointment: Brynn Davison WPtel: [phone] (15 min) Moderate 03/14/2017 Appointment: Brynn Davisonl: [facility]0 [phone] (30 min) Complex 02/03/2017 Visit Plan: Esophageal Reflux - the patient has been counseled against excessive intake of caffeine, spicy foods, peppermint, and cinnamon - all of which can exacerbate esophageal reflux. The patient is to take medications as prescribed and call the office if the symptoms are not improving. Anxiety- undergoing chemo-recommend she continue medications as directed-discussed getting help for (homea health, PT, etc)-she will discuss with him and let us know. 01/17/2017 Appointment: Brynn Davison WPtel: [phone] (15 min) Moderate 01/17/2017 Patient Education: Patient Medication Summary Completed 01/17/2017 Patient Education: Smoking and Tobacco Addiction Completed 01/17/2017 Visit Plan: Right upper arm pain - pt states it is moderate to severe pain in the right upper arm - will order US - The pt is to use prn antiinflammatories to manage acute pain. The patient is to call the office if the pain is worsening or does not improve. 01/01/2017 Appointment: Val Rojas WPtel: [facility]4 [phone] (15 min) Moderate 01/01/2017 Patient Education: Patient Medication Summary Completed 01/01/2017 Patient Education: Smoking and Tobacco Addiction Completed 01/01/2017 Visit Plan: Chronic Depression and anxiety - the pt has symptoms of chronic anxiety and depression that have been fairly well controlled since the last office visit. The pt has expected periods of exacerbation with abatement of the symptoms with change in situational exposure. No change in current medications. Weight klxn-zfdrex-nifmbga has actually gained 3#-continue ensure-follow up in 2 months 12/09/2016 Appointment: Brynn Davison WPtel: [phone] [phone] (15 min) Moderate 12/09/2016 Patient Education: Patient Medication Summary Completed 12/09/2016 Patient Education: Smoking and Tobacco Addiction Completed 12/09/2016 Visit Plan: Abdominal pain-weight loss-tobacco use- discussed with Dr Cota-will schedule patient for a CT chest/abd/pelvis- dexilant 60mg daily-samples provided and instructed on use-low spice diet-start with bland advance as tolerated-check labs today as well-follow up in 1 month, sooner if needed. Patient verbalized understanding of plan. Anxiety-on xanax prn - diagnosed with lung cancer-consider SSRI-patient wants to wait for now 11/15/2016 Visit Plan: Abdominal pain-weight loss-tobacco use- discussed with Dr Cota-will schedule patient for a CT chest/abd/pelvis- dexilant 60mg daily-samples provided and instructed on use-low spice diet-start with bland advance as tolerated-check labs today as well-follow up in 1 month, sooner if needed. Patient verbalized understanding of plan. Anxiety-on xanax prn - diagnosed with lung cancer-consider SSRI-patient wants to wait for now 11/15/2016 Patient Education: Patient Medication Summary Completed 11/15/2016 Patient Education: Smoking and Tobacco Addiction Completed 11/15/2016 Visit Plan: Hypertension - well controlled - continue with current medications, continue with no added salt diet. Pt has been encouraged to exercise daily. The pt has been advised to call the office if there are any acute concerns about change in blood pressure readings at home. Hyperlipidemia - pt has been counseled about appropriate diet, exercise, and need for low fat food choices. I have discussed the need for the patient to take medications as prescribed. If the patient has negative side effects from the medication, they are to CALL the office and not abruptly discontinue the medication without discussion with a practitioner in the office. We will check labs in 3-6 months for follow up on the patient's chronic medical problem and to assure normal liver response to medications. History of elevated blood sugars-check labs including Hgb A1C. Pelvic pressure-urinary urgency-UA negative-instructed patient to call if symptoms do not resolve. Weight loss-recent stress in family- monitor weight 09/09/2016 Appointment: Brynn Davison WPtel: [phone] (30 min) [facility] 09/09/2016 Patient Education: Patient Medication Summary Completed 09/09/2016 Patient Education: Smoking and Tobacco Addiction Completed 09/09/2016 Patient Education: Hypertension Completed 09/09/2016 Referral: Vic Chu Referral Initiated 07/23/2016 Care Plan: Referral Order SNOMED-CT : [id number] Pending 07/16/2016 Visit Plan: Chest pain starting 3 days ago, with radiation to left arm and back, and nausea, long tobacco history - will check labs and EKG - pending results will refer to cardiology 07/11/2016 Appointment: Val Rojas WPtel: [address] [place], [place] [phone] (30 min) [facility] 07/11/2016 Patient Education: Patient Medication Summary Completed 07/11/2016 Patient Education: Smoking and Tobacco Addiction Completed 07/11/2016 Visit Plan: Hypertension - well controlled - continue with current medications, continue with no added salt diet. Pt has been encouraged to exercise daily. The pt has been advised to call the office if there are any acute concerns about change in blood pressure readings at home. Low potassium- stop HCTZ and potassium-monitor symptoms-check labs with next appt 06/10/2016 Visit Plan: Hypertension - well controlled - continue with current medications, continue with no added salt diet. Pt has been encouraged to exercise daily. The pt has been advised to call the office if there are any acute concerns about change in blood pressure readings at home. Low potassium- stop HCTZ and potassium-monitor symptoms-check labs with next appt 06/10/2016 Visit Plan: Hypertension - well controlled - continue with current medications, continue with no added salt diet. Pt has been encouraged to exercise daily. The pt has been advised to call the office if there are any acute concerns about change in blood pressure readings at home. Low potassium- stop HCTZ and potassium-monitor symptoms-check labs with next appt 06/10/2016 Visit Plan: Hypertension - well controlled - continue with current medications, continue with no added salt diet. Pt has been encouraged to exercise daily. The pt has been advised to call the office if there are any acute concerns about change in blood pressure readings at home. Low potassium- stop HCTZ and potassium-monitor symptoms-check labs with next appt 06/10/2016 Patient Education: Patient Medication Summary Completed 06/10/2016 Patient Education: Smoking and Tobacco Addiction Completed 06/10/2016 Visit Plan: Hypertension - well controlled - continue with current medications, continue with no added salt diet. Pt has been encouraged to exercise daily. The pt has been advised to call the office if there are any acute concerns about change in blood pressure readings at home. Low back pain- xray lumbar spine 04/08/2016 Appointment: Saman Brynn [facility]Ptel[facility] [address] [phone] (30 min) Complex 04/08/2016 Patient Education: Patient Medication Summary Completed 04/08/2016 Patient Education: Smoking and Tobacco Addiction Completed 04/08/2016 Patient Education: Hypertension Completed 04/08/2016 Visit Plan: Hypertension - well controlled - continue with current medications, continue with no added salt diet. Pt has been encouraged to exercise daily. The pt has been advised to call the office if there are any acute concerns about change in blood pressure readings at home. Leg pains-hold simvastatin x 2 weeks, start mag ox 400mg -follow up in 1 month 03/07/2016 Appointment: (30 min) Complex 03/07/2016 Patient Education: Patient Medication Summary Completed 03/07/2016 Patient Education: Smoking and Tobacco Addiction Completed 03/07/2016 Patient Education: Hypertension Completed 03/07/2016 Patient Education: Patient Medication Summary Completed 03/04/2016 Visit Plan: Sinusitis - Pt has acute infection - pain in face, maxillary region, Pt informed to use decongestant, RX given to patient, sinus rinses also recommended. Call if symptoms do not show improvement. 09/05/2015 Appointment: (15 min) Moderate 09/05/2015 Patient Education: Patient Medication Summary Completed 09/05/2015 Visit Plan: Sacroiliitis-hospital follow up-weakness improved, pain persists - back exercises discussed with the patient, pt to continue with anti-inflammatories. Pt is to call if the symptoms do not improve or if they worsen. Discussed physical therapy as previously recommended. Tobacco abuse - chronic condition for this patient. Patient has been counseled about need to stop smoking due to the negative health affects. Pt has vocalized understanding and states that they will consider smoking cessation, but the pt is not yet ready to use medication to assist cessation. Low potassium-continue potassium three times daily-we will check your labs in 1 month at appointment. Patient verbalized understanding of plan. 08/07/2015 Appointment: (30 min) Complex 08/07/2015 Patient Education: Patient Medication Summary Completed 08/07/2015 Patient Education: Smoking and Tobacco Addiction Completed 08/07/2015 Visit Plan: Hyperlipidemia - pt has been counseled about appropriate diet, exercise, and need for low fat food choices. I have discussed the need for the patient to take medications as prescribed. If the patient has negative side effects from the medication, they are to CALL the office and not abruptly discontinue the medication without discussion with a practitioner in the office. We will check labs in 3-6 months for follow up on the patient's chronic medical problem and to assure normal liver response to medications. Osteoporosis - repeat bone density-recommend stopping alendronate, she's been on it > 10 years Tobacco abuse - chronic condition for this patient. Patient has been counseled about need to stop smoking due to the negative health affects. Pt has vocalized understanding and states that they will consider smoking cessation, but the pt is not yet ready to use medication to assist cessation. SCHEDULE CT CHEST DUE TO CHRONIC SMOKING. 05/16/2015 Appointment: (S) New Patient 05/16/2015 Patient Education: Patient Medication Summary Completed 05/16/2015 Patient Education: Smoking and Tobacco Addiction Completed 05/16/2015 Referral: Vic Chu Referral Initiated Instructions Comment INCREASE CELEXA TO 20MG DAILY PRELIEF REFERRAL TO UROLOGIST IF SYMPTOMS PERSIST . Anxiety - the patient has uncontrolled anxiety and will benefit from an INCREASE IN SSRI to attempt control of the symptoms of anxiety (tachycardia, overwhelming sensations, stress , insomnia, etc). I also believe that the patient will benefit from very low dose of prn benzodiazepine. Pt is aware of the risks and benefits of treatment with the above medications. Urinary frequency-lower abdominal pain-UA negative-CT scan negative-recommend patient try prelief otc-consider referral to urologist for evaluation if symptoms do not improve ADD GABAPENTIN 100MG TWICE DAILY TO TAKE WITH YOUR 300MG TWICE DAILY AFTER 2 WEEKS, IF YOU HAVEN'T NOTICED A DIFFERENCE, INCREASE THE 100MG CAPSULES TO 2 CAPSULES TWICE DAILY WITH THE 300MG TWICE DAILY [id number] TWICE DAILY. . Hypertension - well controlled - continue with current medications, continue with no added salt diet. Pt has been encouraged to exercise daily. The pt has been advised to call the office if there are any acute concerns about change in blood pressure readings at home. Low back pain-xray lumbar spine . Right upper arm pain - pt states it is moderate to severe pain in the right upper arm - will order US - The pt is to use prn antiinflammatories to manage acute pain. The patient is to call the office if the pain is worsening or does not improve. HD flu Labs pending . Hypertension - well controlled - continue with current medications, continue with no added salt diet. Pt has been encouraged to exercise daily. The pt has been advised to call the office if there are any acute concerns about change in blood pressure readings at home. Chronic Depression and anxiety - the pt has symptoms of chronic anxiety and depression that have been fairly well controlled since the last office visit. The pt has expected periods of exacerbation with abatement of the symptoms with change in situational exposure. No change in current medications. Losartan 1/2 tab at night hydrochlorothiazide in the morning potassium three times a week check potassium level in 1 week. . Sinusitis - Pt has acute infection - pain in face, maxillary region, Pt informed to use decongestant, RX given to patient, sinus rinses also recommended. Call if symptoms do not show improvement. Allergies - chronic - recommended pt to use allergy medication as prescribed. Pt has been counseled as to the appropriate use of the medication. Pt to call if allergy symptoms are not controlled with the medication. If using nasal spray, instructions as follows: Nasal spray- use twice daily, one spray per nostril twice daily, after 30 minutes, rinse out nose with saline spray.. Use opposite hand per nostril to spray in the nasal steroid allergy spray. Hypertension - uncontrolled - the patient's medications have been modified as documented in the visit note. The patient has been counseled to cut back on salt in diet for a no added salt diet, low fat diet, start an exercise program with low weight bearing exercises and higher aerobic activity for heart health. The patient is to check blood pressure readings as an outpatient and either fax , call, or email the readings to the office next week for practitioner to review. The pt is to call for acute concerns. STOP HYDROCHLOROTHIAZIDE AND POTASSIUM MONITOR BLOOD PRESSURE AND PULSE AT HOME AND CALL IF BLOOD PRESSURE IS ELEVATED RECOMMEND MAMMOGRAM -WE WILL SCHEDULE . Hypertension - well controlled - continue with current medications, continue with no added salt diet. Pt has been encouraged to exercise daily. The pt has been advised to call the office if there are any acute concerns about change in blood pressure readings at home. Low potassium-stop HCTZ and potassium-monitor symptoms-check labs with next appt STOP HYDROCHLOROTHIAZIDE AND POTASSIUM MONITOR BLOOD PRESSURE AND PULSE AT HOME AND CALL IF BLOOD PRESSURE IS ELEVATED RECOMMEND MAMMOGRAM -WE WILL SCHEDULE . Hypertension - well controlled - continue with current medications, continue with no added salt diet. Pt has been encouraged to exercise daily. The pt has been advised to call the office if there are any acute concerns about change in blood pressure readings at home. Low potassium-stop HCTZ and potassium-monitor symptoms-check labs with next appt STOP HYDROCHLOROTHIAZIDE AND POTASSIUM MONITOR BLOOD PRESSURE AND PULSE AT HOME AND CALL IF BLOOD PRESSURE IS ELEVATED RECOMMEND MAMMOGRAM -WE WILL SCHEDULE . Hypertension - well controlled - continue with current medications, continue with no added salt diet. Pt has been encouraged to exercise daily. The pt has been advised to call the office if there are any acute concerns about change in blood pressure readings at home. Low potassium-stop HCTZ and potassium-monitor symptoms-check labs with next appt STOP HYDROCHLOROTHIAZIDE AND POTASSIUM MONITOR BLOOD PRESSURE AND PULSE AT HOME AND CALL IF BLOOD PRESSURE IS ELEVATED RECOMMEND MAMMOGRAM -WE WILL SCHEDULE . Hypertension - well controlled - continue with current medications, continue with no added salt diet. Pt has been encouraged to exercise daily. The pt has been advised to call the office if there are any acute concerns about change in blood pressure readings at home. Low potassium-stop HCTZ and potassium-monitor symptoms-check labs with next appt CITALOPRAM 10MG DAILY IN THE MORNING REFILL XANAX TO USE NEEDED CT ABDOMEN/PELVIS TO EVALUATE ABDOMINAL PAIN CHECK UA . Anxiety - the patient has uncontrolled anxiety and will benefit from an SSRI on a daily basis to attempt control of the symptoms of anxiety (tachycardia, overwhelming sensations, stress, insomnia, etc). I also believe that the patient will benefit from very low dose of prn benzodiazepine. Pt is aware of the risks and benefits of treatment with the above medications. Hypertension - well controlled - continue with current medications, continue with no added salt diet. Pt has been encouraged to exercise daily. The pt has been advised to call the office if there are any acute concerns about change in blood pressure readings at home. LLQ pain-UA negative-will evaluate CT scan abdomen/pelvis . Hypertension - well controlled - continue with current medications, continue with no added salt diet. Pt has been encouraged to exercise daily. The pt has been advised to call the office if there are any acute concerns about change in blood pressure readings at home. Allergies - chronic - recommended pt to use allergy medication as prescribed. Pt has been counseled as to the appropriate use of the medication. Pt to call if allergy symptoms are not controlled with the medication. If using nasal spray, instructions as follows: Nasal spray- use twice daily, one spray per nostril twice daily, after 30 minutes, rinse out nose with saline spray.. Use opposite hand per nostril to spray in the nasal steroid allergy spray. Mag oxide 400mg every other day HOLD SIMVASTATIN X 2 WEEKS . Hypertension - well controlled - continue with current medications, continue with no added salt diet. Pt has been encouraged to exercise daily. The pt has been advised to call the office if there are any acute concerns about change in blood pressure readings at home. Leg pains-hold simvastatin x 2 weeks, start mag ox 400mg -follow up in 1 month . Restless Leg Syndrome - uncontrolled symptoms - I have recommended pt to start on a low dose of requip. Trigger Points - Injected trigger points today, pt given post-injection instructions, signs and symptoms for which to call the office. Pt to use heat to the muscles today, and take an anti-inflammatory today unless otherwise contraindicated by renal function or other disease process. RECOMMEND PHYSICAL THERAPY TAKE 1/2 TAB HYDROCODONE AT NOON IF YOUR BACK/LEG IS BOTHERING YOU . Sacroiliitis-hospital follow up-weakness improved, pain persists - back exercises discussed with the patient, pt to continue with anti-inflammatories. Pt is to call if the symptoms do not improve or if they worsen. Discussed physical therapy as previously recommended. Tobacco abuse - chronic condition for this patient. Patient has been counseled about need to stop smoking due to the negative health affects. Pt has vocalized understanding and states that they will consider smoking cessation, but the pt is not yet ready to use medication to assist cessation. Low potassium-continue potassium three times daily-we will check your labs in 1 month at appointment. Patient verbalized understanding of plan. CHECK UA TODAY . Hypertension - well controlled - continue with current medications, continue with no added salt diet. Pt has been encouraged to exercise daily. The pt has been advised to call the office if there are any acute concerns about change in blood pressure readings at home. Hyperlipidemia - pt has been counseled about appropriate diet, exercise, and need for low fat food choices. I have discussed the need for the patient to take medications as prescribed. If the patient has negative side effects from the medication, they are to CALL the office and not abruptly discontinue the medication without discussion with a practitioner in the office. We will check labs in 3-6 months for follow up on the patient's chronic medical problem and to assure normal liver response to medications. History of elevated blood sugars-check labs including Hgb A1C. Pelvic pressure-urinary urgency-UA negative-instructed patient to call if symptoms do not resolve. Weight loss-recent stress in family-monitor weight . Intermittent hypertension and hypotension - pt is on chronic antihypertensive medication - the medication has been adjusted down to attempt to alleviate the low blood pressures. The patient has been counseled to cut back on salt in diet for a no added salt diet, low fat diet, start an exercise program with low weight bearing exercises and higher aerobic activity for heart health. The patient is to check blood pressure readings as an outpatient and either fax , call, or email the readings to the office next week for practitioner to review. The pt is to call for acute concerns. CBC, CMP CT CHEST/ABD/PELVIS DX ABDOMINAL PAIN, WEIGHT LOSS DEXILANT 60MG DAILY-SAMPLES PROVIDED . Abdominal pain-weight loss-tobacco use-discussed with Dr Cota-will schedule patient for a CT chest/abd/pelvis-dexilant 60mg daily-samples provided and instructed on use-low spice diet-start with bland advance as tolerated- check labs today as well-follow up in 1 month, sooner if needed. Patient verbalized understanding of plan. Anxiety-on xanax prn- diagnosed with lung cancer-consider SSRI-patient wants to wait for now CBC, CMP CT CHEST/ABD/PELVIS DX ABDOMINAL PAIN, WEIGHT LOSS DEXILANT 60MG DAILY-SAMPLES PROVIDED . Abdominal pain-weight loss-tobacco use-discussed with Dr Cota-will schedule patient for a CT chest/abd/pelvis-dexilant 60mg daily-samples provided and instructed on use-low spice diet-start with bland advance as tolerated- check labs today as well-follow up in 1 month, sooner if needed. Patient verbalized understanding of plan. Anxiety-on xanax prn- diagnosed with lung cancer-consider SSRI-patient wants to wait for now . Weight rgmm-[id number] ensure-follow up in 2 months Chronic Depression and anxiety - the pt has symptoms of chronic anxiety and depression that have been fairly well controlled since the last office visit. The pt has expected periods of exacerbation with abatement of the symptoms with change in situational exposure. No change in current medications. RESTARTOMEPRAZOLE 40 MG BY MOUTH DAILY CONTINUE XANEX BID PRN . Esophageal Reflux - the patient has been counseled against excessive intake of caffeine, spicy foods, peppermint, and cinnamon - all of which can exacerbate esophageal reflux. The patient is to take medications as prescribed and call the office if the symptoms are not improving. Anxiety- undergoing chemo-recommend she continue medications as directed- discussed getting help for ([employer], PT, etc)-she will discuss with him and let us know. . Sinusitis - Pt has acute infection - pain in face, maxillary region, Pt informed to use decongestant, RX given to patient, sinus rinses also recommended. Call if symptoms do not show improvement. 1/2 of the losartan in the morning and 1/2 in the evening. increase the gabapentin to 1 pill in the morning and 2 pills at night . Uncontrolled hypertension - renal artery ultrasound to be scheduled - we will send a copy of note to dr. chu. 1/2 of the losartan in the morning and 1/2 in the evening. Tremor and peripheral neuropathy - increase the gabapentin to 1 pill in the morning and 2 pills at night. continue ENSURE . Chronic Depression and anxiety - the pt has symptoms of chronic anxiety and depression that have been fairly well controlled since the last office visit. The pt has expected periods of exacerbation with abatement of the symptoms with change in situational exposure. No change in current medications. Weight lave-kplahy-uhbiylx has actually gained 3#-continue ensure-follow up in [address] OF CHEST WITH AND WITHOUT DX TOBACCO USE . Hyperlipidemia - pt has been counseled about appropriate diet, exercise, and need for low fat food choices. I have discussed the need for the patient to take medications as prescribed. If the patient has negative side effects from the medication, they are to CALL the office and not abruptly discontinue the medication without discussion with a practitioner in the office. We will check labs in 3-6 months for follow up on the patient's chronic medical problem and to assure normal liver response to medications. Osteoporosis - repeat bone density-recommend stopping alendronate, she's been on it > 10 years Tobacco abuse - chronic condition for this patient. Patient has been counseled about need to stop smoking due to the negative health affects. Pt has vocalized understanding and states that they will consider smoking cessation, but the pt is not yet ready to use medication to assist cessation. SCHEDULE CT CHEST DUE TO CHRONIC SMOKING. Stop Simvastatin use voltaren gel or if it is expensive get tiger balm over the counter increase gabapentin to three times a day drink 2 ensures a day and come back in 2 weeks for a weight follow up Get labs and x-ray today. . Low back pain- the patient was instructed in appropriate posture. The pt is to use prn antiinflammatories to manage acute pain. The patient is to call the office if the pain is worsening or does not improve. Weight loss - will check labs - pt is to increase her ensures to 2 a day, pt is encouraged to eat protein - will have pt return to clinic in 2 weeks for weight check. losartan 25mg tablet - one time daily - this is to be taken at bedtime to help lower your night time and morning blood pressures. This is a very low dose of blood pressure medication. the Requip (for the tremors) is being increased to 1mg twice daily. . Hypertension - uncontrolled - the patient's medications have been modified as documented in the visit note. The patient has been counseled to cut back on salt in diet for a no added salt diet, low fat diet, start an exercise program with low weight bearing exercises and higher aerobic activity for heart health. The patient is to check blood pressure readings as an outpatient and either fax , call, or email the readings to the office next week for practitioner to review. The pt is to call for acute concerns. Start on losartan 25mg tablet - one time daily - this is to be taken at bedtime to help lower your night time and morning blood pressures. This is a very low dose of blood pressure medication. Restless leg syndrome - the Requip (for the tremors) is being increased to 1mg twice daily. . Chest pain starting 3 days ago, with radiation to left arm and back, and nausea, long tobacco history - will check labs and EKG - pending results will refer to cardiology
--- OUTSIDE RECORDS SUMMARY | 2018-08-28 08:18 | XMS REPORT | CCD ---
Author Author Brynn Davison Organization [facility] Address [address] [place] [address] Phone Care Team Providers Care Traffic Assistant Name Role Phone PP Unavailable CCM Unavailable Summary Purpose Interface Exchange Insurance Providers Payer name Policy type / Coverage type Covered republican ID Effective Begin Date Effective End Date WPS Medicare Part B Medicare Part B [id number] Unknown Unknown [employer] Medicare Part B [id number] Unknown Unknown Family history Father Diagnosis Age At [...] Unknown 4 05/16/[address]: 79406726 Current every day smoker 05/16/2015 Number of years using tobacco Unknown 20 - 30 05/16/2015 Number of cigarettes/day Unknown 20 (One Pack) 1 /2 05/16/[address]: 018508643 Never drinks alcohol 05/16/2015 Allergies, Adverse Reactions, Alerts Allergies, Adverse Reactions, Alerts data not found Past Medical History Illness Codes Condition Status Onset Date Resolved Date Cervicalgia ICD-9: 723.1 ICD-10: M54.2 Active 11/13/2017 Unknown Other muscle spasm ICD -9: 728.85 ICD-10: M62.838 Active 11/13/2017 Unknown Pain in left shoulder ICD-9: 719.41 ICD-10: M25.512 Active 11/13/2017 Unknown Pain in right shoulder ICD-9: 719.41 ICD-10: M25.511 Active 11/13/2017 Unknown Restless legs syndrome ICD-9: 333.94 ICD-10: G25.81 Active 11/13/2017 Unknown Essential (primary) hypertension ICD-9: 401.9 ICD-10: I10 Active 09/08/2016 Unknown Generalized anxiety disorder ICD-9: 300.02 ICD-10: F41.1 Active 11/15/2016 Unknown Left lower quadrant pain ICD-9: 789.04 ICD-10: R10.32 Active 09/16/2017 Unknown Generalized anxiety disorder ICD-9: 300.00 ICD-10: F41.1 Active 01/17/2017 Unknown Hypertension Unknown Active 07/15/2017 Unknown Encounter [...] ICD-9: V76.12 ICD-10: Z12.31 Active 06/09/2016 Unknown Hypokalemia ICD-9: 276.8 ICD-10: E87.6 Active 06/09/2016 Unknown Radiculopathy, lumbar region ICD-9: [...] Problems Condition Codes Effective Dates Condition Status Cervicalgia ICD-9: 723.1 ICD-10: M54.2 11/13/2017 Active Other muscle spasm ICD -9: 728.85 ICD-10: M62.838 11/13/2017 Active Pain in left shoulder ICD-9: 719.41 ICD-10: M25.512 11/13/2017 Active Pain in right shoulder ICD-9: 719.41 ICD-10: M25.511 11/13/2017 Active Restless legs syndrome ICD-9: 333.94 ICD-10: G25.81 11/13/2017 Active Essential (primary) hypertension ICD-9: 401.9 ICD-10: I10 09/08/2016 Active Generalized anxiety disorder ICD-9: 300.02 ICD-10: F41.1 11/15/2016 Active Left lower quadrant pain ICD-9: 789.04 ICD-10: R10.32 09/16/2017 Active Generalized anxiety disorder ICD-9: 300.00 ICD-10: F41.1 01/17/2017 Active Hypertension Unknown 07/15/2017 Active Encounter for [...] breast ICD-9: V76.12 ICD-10: Z12.31 06/09/2016 Active Hypokalemia ICD-9: 276.8 ICD-10: E87.6 06/09/2016 Active Radiculopathy, lumbar region ICD-9: 724.4 [...] Start Date Stop Date Status Fill Instructions Requip 0.5 mg tablet RxNorm: 288706 1 Tablet(s) PO BID 201703/12/2018 Active prednisone 20 mg tablet RxNorm: 811760 2 Tablet(s) PO daily 11/17/2017 Active Celexa 20 mg tablet RxNorm: 584293 1 Tablet(s) PO QAM 201604/03/2018 Active Xanax 0.25 mg tablet RxNorm: 878953 1 Tablet(s) PO BID PRN as needed 09/16/2017 01/13/2018 Active Celexa 10 mg tablet RxNorm: 797969 1 Tablet(s) PO QAM 201610/05/2017 Inactive potassium chloride ER 10 mEq tablet,extended release RxNorm: 604557 1 Tablet(s) PO BIW 07/15/2017 07/09/2018 Active Xanax 0.25 mg tablet RxNorm: 257951 1 Tablet(s) PO BID PRN as needed 06/20/2017 08/18/2017 Inactive gabapentin 300 mg capsule RxNorm: 955589 1 Capsule(s) PO BID 12/06/2017 Active [SAVINGS FOR NON-COVERED DRUGS -- BIN:[id number], PCN: ASPROD1, Group: XXXXX, ID# XXXXXXX, Questions: . THIS IS NOT INSURANCE.] omeprazole 40 mg capsule,delayed release RxNorm: 903061 1 Capsule(s) PO daily 06/10/2017 09/07/2017 Inactive Xanax 0.25 mg tablet RxNorm: 187010 1 Tablet(s) PO BID PRN as needed 04/16/2017 06/14/2017 Inactive Xanax 0.25 mg tablet RxNorm: 017214 1 Tablet(s) PO BID PRN as needed 01/17/2017 03/17/2017 Inactive omeprazole 40 mg capsule,delayed release RxNorm: 086956 1 Capsule(s) PO daily 01/17/2017 04/16/2017 Inactive naproxen 500 mg tablet RxNorm: 673745 1 Tablet(s) PO BID as needed 01/01/2017 01/05/2017 Inactive Xanax 0.25 mg tablet RxNorm: 378085 1 Tablet(s) PO BID PRN as needed 12/16/2016 01/16/2017 Inactive simvastatin 40 mg tablet RxNorm: 898758 1 Tablet(s) PO daily 12/03/2017 Active gabapentin 300 mg capsule RxNorm: 538501 1 Capsule(s) PO BID 06/06/2017 Inactive [SAVINGS FOR NON-COVERED DRUGS -- BIN:[id number], PCN: ASPROD1, Group: XXXXX , ID# XXXXXXX, Questions: . THIS IS NOT INSURANCE.] Xanax 0.25 mg tablet RxNorm: 994798 1 Tablet(s) PO BID PRN as needed 11/11/2016 01/07/2017 Inactive omeprazole 40 mg capsule,delayed release RxNorm: 165227 1 Capsule(s) PO daily 07/11/2016 08/09/2016 Inactive omeprazole 40 mg capsule,delayed release RxNorm: 20021128 1 Capsule(s) PO daily 07/11/2016 07/10/2016 Inactive potassium chloride ER 10 mEq tablet,extended release RxNorm: 052419 1 Tablet(s) PO TIW 04/25/2016 04/24/2016 Inactive potassium chloride ER 10 mEq tablet,extended release RxNorm: 050451 1 Tablet(s) PO TIW 04/25/2016 06/09/2016 Inactive calcitonin (salmon) 200 unit/actuation nasal spray RxNorm: 100404 1 Clarissa NASAL daily alternate nares daily 04/17/2016 Inactive pt wouldl like to know lee before coming out calcitonin (salmon) 200 unit/actuation nasal spray RxNorm: 303174 1 Clarissa NASAL daily alternate nares daily 04/17/2016 Inactive gabapentin 300 mg capsule RxNorm: 457367 1 Capsule(s) PO BID 10/04/2016 Inactive [SAVINGS FOR NON-COVERED DRUGS -- BIN:599523, PCN: ASPROD1, Group: XXXXX , ID# XXXXXXX, Questions: . THIS IS NOT INSURANCE.] gabapentin 100 mg capsule RxNorm: 210679 2 Capsule(s) PO BID 04/28/2016 Inactive START WITH 100MG TWICE DAILY X 2 WEEKS THEN INCREASE TO 2 CAPSULES TWICE DAILY, TAKE WITH 300MG CAPSULES TWICE DAILY alendronate 35 mg tablet RxNorm: 524492 1 Tablet(s) PO weekly QW 02/29/2016 03/06/2016 Inactive simvastatin 40 mg tablet RxNorm: 035964 1 Tablet(s) PO daily 11/06/2016 Inactive hydrochlorothiazide 25 mg tablet RxNorm: 826224 1 Tablet(s) PO daily 11/13/2015 06/09/2016 Inactive gabapentin 300 mg capsule RxNorm: 275161 1 Capsule(s) PO BID 04/05/2016 Inactive [SAVINGS FOR NON-COVERED DRUGS -- BIN:[id number], PCN: ASPROD1, Group: XXXXX , ID# XXXXXXX, Questions: . THIS IS NOT INSURANCE.] Augmentin 500 mg-125 mg tablet RxNorm: 898497 1 Tablet(s) PO TID 09/05/2015 09/11/2015 Inactive potassium chloride ER 10 mEq tablet,extended release RxNorm: 231756 1 Tablet(s) PO TIW 08/07/2015 04/24/2016 Inactive gabapentin 300 mg capsule RxNorm: 657737 1 Capsule(s) PO BID 10/08/2015 Inactive [SAVINGS FOR NON-COVERED DRUGS -- BIN:568167, PCN: ASPROD1, Group: XXXXX , ID# XXXXXXX, Questions: . THIS IS NOT INSURANCE.] alendronate 35 mg tablet RxNorm: 208355 1 Tablet(s) PO weekly QW 06/13/2015 02/28/2016 Inactive gabapentin 300 mg capsule RxNorm: 782063 1 Capsule(s) PO BID 05/20/2015 Inactive [SAVINGS FOR NON-COVERED DRUGS -- BIN:592150, PCN: ASPROD1, Group: XXXXX , ID# XXXXXXX, Questions: . THIS IS NOT INSURANCE.] gabapentin 300 mg capsule RxNorm: 542551 1 Capsule(s) PO BID 02/19/2015 Inactive niacin 500 mg tablet RxNorm: 519963 1 Tablet(s) PO daily No Start Date Active hydrocodone 5 mg-acetaminophen 325 mg tablet RxNorm: 403583 1 Tablet(s) PO Q4H as needed No Start Date Active Calcium RxNorm: PO oscal 4 per day No Start Date Active Fish Oil 1,000 mg capsule RxNorm: 1200 Capsule(s) PO daily No Start Date Active cyanocobalamin (vit B-12) 100 mcg tablet RxNorm: 381578 1 Tablet(s) PO daily No Start Date Active Glucosamine Chondroit Complx Advan oral RxNorm: oral No Start Date Active Vitamin B RxNorm: PO No Start Date Active simvastatin 40 mg tablet RxNorm: 903358 1 Tablet(s) PO daily No Start Date 11/12/2015 Inactive Xanax 0.25 mg tablet RxNorm: 750743 1 Tablet(s) PO BID PRN No Start Date 11/10/2016 Inactive potassium chloride ER 10 mEq tablet,extended release RxNorm: 401601 1 Tablet(s) PO daily No Start Date 08/06/2015 Inactive hydrochlorothiazide 25 mg tablet RxNorm: 204022 1 Tablet(s) PO daily No Start Date 11/12/2015 Inactive alendronate 35 mg tablet RxNorm: 144259 1 Tablet(s) PO weekly No Start Date 06/12/2015 Inactive Maxzide-25mg 37.5 mg-25 mg tablet RxNorm: 38462 1 Tablet(s) PO daily No Start Date 05/15/2015 Inactive Medication Administered No Medication Administered data Immunizations Vaccine Codes Date Status Influenza CVX: 141 07/15/2017 completed Influenza CVX: 141 2016 completed Pneumococcal CVX: 133 09/05/2015 completed Pneumococcal CVX: 33 06/22/2011 completed Assessments Condition Codes Effective Dates Other muscle spasm ICD-10: M62.838 ICD-9: 728.85 11/13/2017 Pain in left shoulder ICD-10: M25.512 ICD-9: 719.41 11/13/2017 Cervicalgia ICD-10: M54.2 ICD-9: 723.1 11/13/2017 Restless legs syndrome ICD-10: G25.81 ICD-9: 333.94 11/13/2017 Pain in right shoulder ICD-10: M25.511 ICD-9: 719.41 11/13/2017 Left lower quadrant pain ICD-10: R10.32 ICD-9: 789.04 10/06/2017 Generalized anxiety disorder ICD-10: F41.1 ICD-9: 300.02 10/06/2017 Generalized anxiety disorder ICD-10: F41.1 ICD-9: 300.00 09/16/2017 Essential (primary) hypertension ICD-10: I10 ICD-9: 401.9 09/16/2017 Encounter for immunization ICD-10: Z23 ICD-9: [...] chest pain ICD-10: R07.89 ICD-9: 786.59 07/11/2016 Hypokalemia ICD-10: E87.6 ICD-9: 276.8 06/10/2016 Encounter for screening mammogram for malignant neoplasm [...] Visit Reason For Visit Effective Dates Notes arm pain 11/13/2017 hypertension 10/06/2017 citalopram hypertension [...] Observation Code Item Item Code Result Date Comp Metabolic Ich438 NA 141 mEq/L 07/15/2017 Comp Metabolic Lfd789 K 4.1 mEq/L 07/15/2017 Comp Metabolic Trf484 CL 105 mEq/L 07/15/2017 Comp Metabolic Bua198 CO2 27.0 mEq/L 07/15/2017 Comp Metabolic Ala966 ANION GAP 13 07/15/2017 Comp Metabolic Aur673 GLUCOSE 90 mg/dL 07/15/2017 Comp Metabolic Fxf190 Creat 0.8 mg/dL 07/15/2017 Comp Metabolic Hdh013 eGFR 77 ml/min/1.73m2 07/15/2017 Comp Metabolic Tuq350 BUN 13 mg/dL 07/15/2017 Comp Metabolic Pvf956 B/C Ratio 16.9 Ratio 07/15/2017 Comp Metabolic Fhy378 CALCIUM 9.6 mg/dL 07/15/2017 Comp Metabolic Xjo403 ALK PHOS 54 U/L 07/15/2017 Comp Metabolic Ygy044 AST(SGOT) 24 U/L 07/15/2017 Comp Metabolic Yzw558 ALT(SGPT) 19 U/L 07/15/2017 Comp Metabolic Evo134 BILI T 0.7 mg/dL 07/15/2017 Comp Metabolic Agw314 ALBUMIN 4.2 g/dL 07/15/2017 Comp Metabolic Wvf227 TPRO 6.5 g/dL 07/15/2017 Comp Metabolic Uar507 GLOB 2.4 g/dL 07/15/2017 Comp Metabolic Vxh585 A/G Ratio 1.8 Ratio 07/15/2017 Comp Metabolic Rae025 Osmo 281 mOsmo 07/15/2017 Cbc With Differential [...] 30.8 % 07/15/2017 Cbc With Differential Ord2 [place]% 8.1 % 07/15/2017 Cbc With Differential Ord2 [...] 2.42 K/ul 07/15/2017 Cbc With Differential Ord2 [place] ABS# 0.6 K/ul 07/15/2017 Cbc With Differential [...] 31.4 pg 04/16/2017 Cbc With Differential Ord2 [place]% 6.8 % 04/16/2017 Cbc With Differential Ord2 [...] 2.63 K/ul 04/16/2017 Cbc With Differential Ord2 [place] ABS# 0.5 K/ul 04/16/2017 Cbc With Differential Ord2 Eos ABS# 0.2 K/ul 04/16/2017 Cbc With Differential Ord2 Baso ABS# 0.0 K/ul 04/16/2017 Tsh Ord6 hTSH II 1.72 uIU/mL 04/16/2017 Comp Metabolic Slg950 NA 140 mEq/L 04/16/2017 Comp Metabolic Yhm557 K 4.1 mEq/L 04/16/2017 Comp Metabolic Jax940 CL 106 mEq/L 04/16/2017 Comp Metabolic Asu715 CO2 28.0 mEq/L 04/16/2017 Comp Metabolic Syn770 ANION GAP 10 04/16/2017 Comp Metabolic Cri882 GLUCOSE 84 mg/dL 04/16/2017 Comp Metabolic Sbo521 Creat 0.9 mg/dL 04/16/2017 Comp Metabolic Psv847 eGFR 66 ml/min/1.73m2 04/16/2017 Comp Metabolic Bmd160 BUN 17 mg/dL 04/16/2017 Comp Metabolic Ewj118 B/C Ratio 19.1 Ratio 04/16/2017 Comp Metabolic Crw756 CALCIUM 9.9 mg/dL 04/16/2017 Comp Metabolic Jeq986 ALK PHOS 36 U/L 04/16/2017 Comp Metabolic Nih847 AST(SGOT) 22 U/L 04/16/2017 Comp Metabolic Wkk131 ALT(SGPT) 17 U/L 04/16/2017 Comp Metabolic Lup790 BILI T 0.4 mg/dL 04/16/2017 Comp Metabolic Dws981 ALBUMIN 4.1 g/dL 04/16/2017 Comp Metabolic Myy799 TPRO 6.2 g/dL 04/16/2017 Comp Metabolic Nky476 GLOB 2.1 g/dL 04/16/2017 Comp Metabolic Wnf929 A/G Ratio 1.9 Ratio 04/16/2017 Comp Metabolic Huo966 Osmo 280 mOsmo 04/16/2017 Comp Metabolic Knj880 NA 141 mEq/L 11/18/2016 Comp Metabolic Xqw818 K 3.7 mEq/L 11/18/2016 Comp Metabolic Bcu416 CL 105 mEq/L 11/18/2016 Comp Metabolic Azc259 CO2 30.0 mEq/L 11/18/2016 Comp Metabolic Bdy804 ANION GAP 10 11/18/2016 Comp Metabolic Osh290 GLUCOSE 96 mg/dL 11/18/2016 Comp Metabolic Gsh792 Creat 0.8 mg/dL 11/18/2016 Comp Metabolic Yfm752 eGFR 80 ml/min/1.73m2 11/18/2016 Comp Metabolic Pij767 BUN 21 mg/dL 11/18/2016 Comp Metabolic Igh646 B/C Ratio 28.0 Ratio 11/18/2016 Comp Metabolic Apg908 CALCIUM 9.5 mg/dL 11/18/2016 Comp Metabolic Nju334 ALK PHOS 39 U/L 11/18/2016 Comp Metabolic Jpq245 AST(SGOT) 23 U/L 11/18/2016 Comp Metabolic Dpx029 ALT(SGPT) 16 U/L 11/18/2016 Comp Metabolic Bhb941 BILI T 0.7 mg/dL 11/18/2016 Comp Metabolic Smd931 ALBUMIN 4.2 g/dL 11/18/2016 Comp Metabolic Pdh281 TPRO 6.3 g/dL 11/18/2016 Comp Metabolic Ifc038 GLOB 2.1 g/dL 11/18/2016 Comp Metabolic Aje889 A/G Ratio 2.0 Ratio 11/18/2016 Comp Metabolic Ygm162 Osmo 284 mOsmo 11/18/2016 Cbc With Differential Ord2 WBC 6.83 K/ul 11/18/2016 Cbc With Differential Ord2 RBC 4.56 M/ul 11/18/2016 Cbc With Differential Ord2 HGB 14.3 g/dl 11/18/2016 Cbc With Differential Ord2 Neut% 53.2 % 11/18/2016 Cbc With Differential Ord2 HCT 42.4 % 11/18/2016 Cbc With Differential Ord2 Lymph% 35.6 % 11/18/2016 Cbc With Differential Ord2 MCV 93.0 fl 11/18/2016 Cbc With Differential Ord2 MCH 31.4 pg 11/18/2016 Cbc With Differential Ord2 [place]% 7.2 % 11/18/2016 Cbc With Differential Ord2 MCHC 33.7 pg 11/18/2016 Cbc With Differential Ord2 Eos% 3.4 % 11/18/2016 Cbc With Differential Ord2 Baso% 0.6 % 11/18/2016 Cbc With Differential Ord2 PLT 191 K/ul 11/18/2016 Cbc With Differential Ord2 Neut ABS# 3.64 K/ul 11/18/2016 Cbc With Differential Ord2 RDW 14.4 % 11/18/2016 Cbc With Differential Ord2 Lymph ABS# 2.43 K/ul 11/18/2016 Cbc With Differential Ord2 [place] ABS# 0.5 K/ul 11/18/2016 Cbc With Differential Ord2 Eos ABS# 0.2 K/ul 11/18/2016 Cbc With Differential Ord2 Baso ABS# 0.0 K/ul 11/18/2016 %Hba1C Lxw301 % HbA1c 47697-4 5.2 % 09/10/2016 %Hba1C Yew031 Gluc Ave 103 mg/dL 09/10/2016 Lipid Ord30 [...] 27.6 % 09/10/2016 Cbc With Differential Ord2 [place]% 6.4 % 09/10/2016 Cbc With Differential Ord2 [...] 2.51 K/ul 09/10/2016 Cbc With Differential Ord2 [place] ABS# 0.6 K/ul 09/10/2016 Cbc With Differential Ord2 Eos ABS# 0.3 K/ul 09/10/2016 Cbc With Differential Ord2 Baso ABS# 0.0 K/ul 09/10/2016 Tsh Ord6 hTSH II 3.47 uIU/mL 09/10/2016 Comp Metabolic Mcb501 NA 139 mEq/L 09/10/2016 Comp Metabolic Dwr520 K 3.9 mEq/L 09/10/2016 Comp Metabolic Dpc535 CL 100 mEq/L 09/10/2016 Comp Metabolic Rgp796 CO2 28.0 mEq/L 09/10/2016 Comp Metabolic Nuh445 ANION GAP 15 09/10/2016 Comp Metabolic Mwf416 GLUCOSE 98 mg/dL 09/10/2016 Comp Metabolic Ccx797 Creat 0.9 mg/dL 09/10/2016 Comp Metabolic Bxu701 eGFR 64 ml/min/1.73m2 09/10/2016 Comp Metabolic Peh459 BUN 13 mg/dL 09/10/2016 Comp Metabolic Uiq651 B/C Ratio 14.3 Ratio 09/10/2016 Comp Metabolic Ziz514 CALCIUM 10.6 mg/dL 09/10/2016 Comp Metabolic Zyv124 ALK PHOS 52 U/L 09/10/2016 Comp Metabolic Fee174 AST(SGOT) 25 U/L 09/10/2016 Comp Metabolic Ldz352 ALT(SGPT) 17 U/L 09/10/2016 Comp Metabolic Dae113 BILI T 0.7 mg/dL 09/10/2016 Comp Metabolic Igc634 ALBUMIN 4.5 g/dL 09/10/2016 Comp Metabolic Duy788 TPRO 7.2 g/dL 09/10/2016 Comp Metabolic Ubk594 GLOB 2.7 g/dL 09/10/2016 Comp Metabolic Pou585 A/G Ratio 1.6 Ratio 09/10/2016 Comp Metabolic Orz979 Osmo 278 mOsmo 09/10/2016 Vitamin D 25 Oh Xbq3442 VITAMIN D, 25 HYDROXY 52.49 ng/mL Tsh Ord6 hTSH II 4.17 uIU/mL 03/05/2016 Comp Metabolic Ymi550 NA 139 mEq/L 03/05/2016 Comp Metabolic Hbu929 K 3.8 mEq/L 03/05/2016 Comp Metabolic Kwr315 CL 102 mEq/L 03/05/2016 Comp Metabolic Bst099 CO2 30.0 mEq/L 03/05/2016 Comp Metabolic Ipg002 ANION GAP 11 03/05/2016 Comp Metabolic Ybj606 GLUCOSE 96 mg/dL 03/05/2016 Comp Metabolic Wja662 Creat 0.9 mg/dL 03/05/2016 Comp Metabolic Trv601 eGFR 68 ml/min/1.73m2 03/05/2016 Comp Metabolic Lne286 BUN 17 mg/dL 03/05/2016 Comp Metabolic Ubc458 B/C Ratio 19.8 Ratio 03/05/2016 Comp Metabolic Hun909 CALCIUM 9.9 mg/dL 03/05/2016 Comp Metabolic Hgd788 ALK PHOS 42 U/L 03/05/2016 Comp Metabolic Akf638 AST(SGOT) 26 U/L 03/05/2016 Comp Metabolic Iak165 ALT(SGPT) 19 U/L 03/05/2016 Comp Metabolic Imz507 BILI T 0.4 mg/dL 03/05/2016 Comp Metabolic Rcd197 ALBUMIN 4.2 g/dL 03/05/2016 Comp Metabolic Mxu912 TPRO 6.7 g/dL 03/05/2016 Comp Metabolic Qde105 GLOB 2.5 g/dL 03/05/2016 Comp Metabolic Ker086 A/G Ratio 1.7 Ratio 03/05/2016 Comp Metabolic Afs438 Osmo 279 mOsmo 03/05/2016 Cbc With Differential Ord2 WBC 8.86 K/ul 03/05/2016 Cbc With Differential Ord2 RBC 4.69 M/ul 03/05/2016 Cbc With Differential Ord2 HGB 14.6 g/dl 03/05/2016 Cbc With Differential Ord2 Neut% 53.5 % 03/05/2016 Cbc With Differential Ord2 HCT 44.0 % 03/05/2016 Cbc With Differential Ord2 MCV 93.8 fl 03/05/2016 Cbc With Differential Ord2 Lymph% 34.7 % 03/05/2016 Cbc With Differential Ord2 MCH 31.1 pg 03/05/2016 Cbc With Differential Ord2 [place]% 6.7 % 03/05/2016 Cbc With Differential Ord2 MCHC 33.2 pg 03/05/2016 Cbc With Differential Ord2 Eos% 4.6 % 03/05/2016 Cbc With Differential Ord2 PLT 210 K/ul 03/05/2016 Cbc With Differential Ord2 Baso% 0.5 % 03/05/2016 Cbc With Differential Ord2 RDW 14.7 % 03/05/2016 Cbc With Differential Ord2 Neut ABS# 4.75 K/ul 03/05/2016 Cbc With Differential Ord2 Lymph ABS# 3.07 K/ul 03/05/2016 Cbc With Differential Ord2 [place] ABS# 0.6 K/ul 03/05/2016 Cbc With Differential [...] Ord30 C/HDL 2.8 Ratio 05/17/2015 Comp Metabolic Bky657 NA 136 mEq/L 05/17/2015 Comp Metabolic Ulw116 K 3.7 mEq/L 05/17/2015 Comp Metabolic Snk839 CL 100 mEq/L 05/17/2015 Comp Metabolic Fcz647 CO2 29.0 mEq/L 05/17/2015 Comp Metabolic Znv750 ANION GAP 11 05/17/2015 Comp Metabolic Snm502 GLUCOSE 95 mg/dL 05/17/2015 Comp Metabolic Uqp521 Creat 0.8 mg/dL 05/17/2015 Comp Metabolic Jbs664 eGFR 72 ml/min/1.73m2 05/17/2015 Comp Metabolic Ebh012 BUN 12 mg/dL 05/17/2015 Comp Metabolic Llf081 B/C Ratio 14.6 Ratio 05/17/2015 Comp Metabolic Dfi610 CALCIUM 10.2 mg/dL 05/17/2015 Comp Metabolic Iaf780 ALK PHOS 36 U/L 05/17/2015 Comp Metabolic Fvt349 AST(SGOT) 20 U/L 05/17/2015 Comp Metabolic Xcv186 ALT(SGPT) 11 U/L 05/17/2015 Comp Metabolic Htl947 BILI T 0.6 mg/dL 05/17/2015 Comp Metabolic Wyh206 ALBUMIN 4.3 g/dL 05/17/2015 Comp Metabolic Meu859 TPRO 6.6 g/dL 05/17/2015 Comp Metabolic Ihp707 GLOB 2.3 g/dL 05/17/2015 Comp Metabolic Uox408 A/G Ratio 1.9 Ratio 05/17/2015 Comp Metabolic Cmk363 Osmo 272 mOsmo 05/17/2015 Cbc With Differential [...] 14.7 % 05/17/2015 Vitamin D 25 Oh Rgc2000 VITAMIN D, 25 HYDROXY 50.38 ng/mL Tsh [...] clear 07/15/2017 None Full Exam - General 1995 Ears/Nose/Throat otoscopic exam External auditory canal: partial cerumen occlusion 07/15/2017 None Full Exam - General 1994 Ears/Nose/Throat lips/teeth/gingiva Teeth: missing teeth 07/15/2017 None Full Exam - General 1995 Ears/Nose/Throat lips/teeth/gingiva Teeth: dental caries 07/15/2017 None [...] time 05/13/2017 None Full Exam - General 1994 Psychiatric mood and affect Mood: flat 05/13/2017 [...] contact 04/16/2017 None Full Exam - General 1994 Constitutional general appearance Stature/Body Habitus: short stature 01/17/2017 None Full Exam - General 1994 Constitutional general appearance Stature/Body Habitus: kyphosis 01/17/2017 None Full Exam - General 1994 Constitutional general appearance Nourishment: thin 01/17/2017 None Full Exam - General 1994 [...] masses 01/17/2017 None Full Exam - General 1994 Ears/Nose/Throat external ear Overall: normal mastoids 01/17/2017 None Full Exam - General 1994 Ears/Nose/Throat otoscopic exam External auditory canal: partial cerumen occlusion 01/17/2017 None Full Exam - General 1994 Ears/Nose/Throat otoscopic exam Overall: tympanic membranes clear 01/17/2017 None Full Exam - General 1994 Ears/Nose/Throat lips/teeth/gingiva Lips: dry 01/17/2017 None Full Exam - General 1994 Ears/Nose/Throat lips/teeth/gingiva Teeth: dental caries 01/17/2017 None Full Exam - General 1994 Ears/Nose/Throat lips/teeth/gingiva Teeth: missing teeth 01/17/2017 None [...] General 1994 Ears/Nose/Throat lips/teeth/gingiva Overall: benign lips 11/15/2016 None [...] clear 05/16/2015 None Procedures Procedure Codes Date TRIAMCINOLONE ACET INJ NOS CPT-4: J3301 11/13/2017 INJECT TRIGGER POINTS 3/> CPT-4: 50922 11/13/2017 URINALYSIS NONAUTO W/O SCOPE CPT-4: 85501 09/16/2017 ADMIN INFLUENZA VIRUS VAC CPT-4: G0008 07/15/2017 FLU VACC PRSV FREE INC ANTIG CPT-4: 03600 07/15/2017 TOBACCO-USE NETWORK CONTROL TECHNICIAN 3-[address]: 010314991 CPT-4: G0436 04/30/2017 TOBACCO-USE NETWORK CONTROL TECHNICIAN 3-[address]: 584010179 CPT-4: G0436 11/15/2016 URINALYSIS NONAUTO W/O SCOPE CPT-4: 04190 09/09/2016 TOBACCO-USE NETWORK CONTROL TECHNICIAN 3-[address]: 333775120 CPT-4: G0436 04/08/2016 TOBACCO-USE NETWORK CONTROL TECHNICIAN 3-[address]: 412379452 CPT-4: G0436 08/07/2015 Vital Signs Date Vital 11/13/2017 Blood Pressure 1: 146/88 Code : 8480-6 BMI: 19.7 Code : 15714-5 Heart Rate 1 : 75 bpm Height: 5'2" SpO2: 96% Weight: 107 lbs 10/06/2017 Blood Pressure 1: 126/72 Code : 8480-6 BMI: 19.5 Code : 90613-9 Heart Rate 1 : 76 bpm Height: 5'2" SpO2: 94% Weight: 106 lbs 09/16/2017 Blood Pressure 1: 126/78 Code : 8480-6 BMI: 19.9 Code : 41569-1 Heart Rate 1 : 79 bpm Height: 5'2" SpO2: 98% Weight: 108 lbs 07/15/2017 Blood Pressure 1: 142/88 Code : 8480-6 BMI: 20.2 Code : 36655-8 Heart Rate 1 : 81 bpm Height: 5'2" SpO2: 97% Weight: 110 lbs 05/13/2017 Blood Pressure 1: 138/74 Code : 8480-6 BMI: 20.5 Code : 22867-5 Heart Rate 1 : 73 bpm Height: 5'2" SpO2: 93% Weight: 111 lbs 8 oz 04/30/2017 Weight: 113 lbs 04/16/2017 Blood Pressure 1: 134/72 Code : 8480-6 BMI: 20.2 Code : 77605-6 Heart Rate 1 : 86 bpm Height: 5'2" SpO2: 94% Weight: 110 lbs 01/17/2017 Blood Pressure 1: 136/70 Code : 8480-6 BMI: 21.4 Code : 76016-7 Heart Rate 1 : 80 bpm Height: 5'2" SpO2: 95% Weight: 116 lbs 01/01/2017 Blood Pressure 1: 132/70 Code : 8480-6 BMI: 20.8 Code : 92077-4 Heart Rate 1 : 81 bpm Height: 5'2" SpO2: 97% Weight: 113 lbs 12/09/2016 Blood Pressure 1: 136/70 Code : 8480-6 BMI: 20.8 Code : 28136-4 Heart Rate 1 : 80 bpm Height: 5'2" SpO2: 97% Weight: 113 lbs 11/15/2016 Blood Pressure 1: 140/76 Code : 8480-6 BMI: 20.2 Code : 16633-6 Heart Rate 1 : 75 bpm Height: 5'2" SpO2: 98% Temperature: 36.7 (C) / 98.1 (F) Weight: 110 lbs 09/09/2016 Blood Pressure 1: 132/84 Code : 8480-6 BMI: 21.5 Code : 39779-7 Heart Rate 1 : 72 bpm Height: 5'2" SpO2: 94% Weight: 117 lbs 07/11/2016 Blood Pressure 1: 130/72 Code : 8480-6 BMI: 22.1 Code : 78202-9 Heart Rate 1 : 85 bpm Height: 5'2" SpO2: 95% Weight: 120 lbs 06/10/2016 Blood Pressure 1: 126/60 Code : 8480-6 BMI: 22.1 Code : 82087-0 Heart Rate 1 : 83 bpm Height: 5'2" SpO2: 97% Weight: 120 lbs 04/08/2016 Blood Pressure 1: 110/78 Code : 8480-6 BMI: 22.8 Code : 13755-8 Heart Rate 1 : 68 bpm Height: 5'2" SpO2: 96% Weight: 124 lbs 03/07/2016 Blood Pressure 1: 130/80 Code : 8480-6 BMI: 23.6 Code : 65494-5 Heart Rate 1 : 64 bpm Height: 5'2" SpO2: 96% Weight: 128 lbs 09/05/2015 Blood Pressure 1: 122/62 Code : 8480-6 BMI: 23.6 Code : 14372-3 Heart Rate 1 : 79 bpm Height: 5'2" SpO2: 94% Weight: 128 lbs 08/07/2015 Blood Pressure 1: 138/80 Code : 8480-6 BMI: 23.9 Code : 02989-4 Heart Rate 1 : 76 bpm Height: 5'2" SpO2: 97% Weight: 130 lbs 05/16/2015 Blood Pressure 1: 132/82 Code : 8480-6 BMI: 25.2 Code : 79064-3 Heart Rate 1 : 72 bpm Height: 5'2" Weight: 137 lbs Functional Status No Functional Status data History of Present Illness Symptom Name Status Result Effective Date Notes arm pain Quality sharp pain 11/13/2017 None [...] started arm pain Extent of Symptoms diminished [place] strength right hand 11/13/2017 None arm pain [...] data Encounters Encounter Performer Location Codes Date ([id number]) [id number] EST. PATIENT, LEVEL III Diagnosis: Pain in right shoulder[ICD10: M25.511] Diagnosis: Pain in left shoulder[ICD10: M25.512] Diagnosis: Cervicalgia[ICD10: M54.2] Diagnosis: Other muscle spasm[ICD10: M62.838] Diagnosis: Restless legs syndrome[ICD10: G25.81] Lilia Cota MD, [facility] CPT-4: 65143 11/13/2017 ([id number]) 78392 EST. PATIENT, LEVEL III Diagnosis: Generalized anxiety disorder[ICD10: F41.1] Diagnosis: Left lower quadrant pain[ICD10: R10.32] [facility] CPT-4: 16165 10/06/2017 ([id number]) 28390 EST. PATIENT, LEVEL IV Diagnosis: Generalized anxiety disorder[ICD10: F41.1] Diagnosis: Left lower quadrant pain[ICD10: R10.32] Diagnosis: Essential (primary) hypertension[ICD10: I10] Brynn Cota MD, [facility] CPT-4: 69480 09/16/2017 ([id number]) 13165 EST. PATIENT, LEVEL III Diagnosis: Essential (primary) hypertension[ICD10: I10] Diagnosis: Generalized anxiety disorder[ICD10: F41.1] Diagnosis: Encounter for immunization[ICD10: Z23] Brynn Cota MD, [facility] CPT-4: 74299 07/15/2017 02556 EST. PATIENT, LEVEL III Diagnosis: Abnormal weight loss[ICD10: R63.4] Diagnosis: Generalized anxiety disorder[ICD10: F41.1] Brynn Cota MD, [facility] CPT-4: 23055 05/13/2017 ([id number]) Miscellaneous no charge Diagnosis: Abnormal weight loss[ICD10: R63.4] Lilia Cota MD, [facility] CPT-4: 28457 04/30/2017 27542 EST. PATIENT, LEVEL III Diagnosis: Abnormal weight loss[ICD10: R63.4] Diagnosis: Pain in thoracic spine[ICD10: M54.6] Diagnosis: Low back pain[ICD10: M54.5] Val Cota MD, [facility] CPT-4 : 96655 04/16/2017 ([id number]) 05515 EST. PATIENT, LEVEL III Diagnosis: Gastro-esophageal reflux disease without esophagitis[ICD10: K21.9] Diagnosis: Generalized anxiety disorder[ICD10: F41.1] Brynn Cota MD, [facility] CPT-4: 77047 01/17/2017 96404 EST. PATIENT, LEVEL III Diagnosis: Pain in right upper arm[ICD10: M79.621] Val Cota MD, [facility] CPT-4: 13604 01/01/2017 ([id number]) 45985 EST. PATIENT, LEVEL III Diagnosis: Generalized anxiety disorder[ICD10: F41.1] Diagnosis: Abnormal weight loss[ICD10: R63.4] Brynn Cota MD, [facility] CPT-4: 84898 12/09/2016 ([id number]) 58023 EST. PATIENT, LEVEL IV Diagnosis: Essential (primary) hypertension[ICD10: I10] Diagnosis: Abnormal weight loss[ICD10: R63.4] Diagnosis: Generalized abdominal pain[ICD10: R10.84] Diagnosis: Tobacco use[ICD10: Z72.0] Diagnosis: Generalized anxiety disorder[ICD10: F41.1] Brynn Cota MD, [facility] CPT-4: 46000 11/15/2016 ([id number]) 87959 EST. PATIENT, LEVEL IV Diagnosis: Essential (primary) hypertension[ICD10: I10] Diagnosis: Mixed hyperlipidemia[ICD10: E78.2] Diagnosis: Impaired fasting glucose[ICD10: R73.01] Diagnosis: Dysuria[ICD10: R30.0] Diagnosis: Abnormal weight loss[ICD10: R63.4] Brynn Cota MD, [facility] CPT-4: 42877 09/09/2016 66334 EST. PATIENT, LEVEL IV Diagnosis: Other chest pain[ICD10: R07.89] Val Cota MD, [facility] CPT-4 : 53666 07/11/2016 ([id number]) 70177 EST. PATIENT, LEVEL III Diagnosis: Essential (primary) hypertension[ICD10: I10] Diagnosis: Hypokalemia[ICD10: E87.6] Diagnosis: Encounter for screening mammogram for malignant neoplasm of breast[ ICD10: Z12.31] Brynn Cota MD, [facility] CPT-4: 24239 06/10/2016 ([id number]) 25295 EST. PATIENT, LEVEL III Diagnosis: Essential (primary) hypertension[ICD10: I10] Diagnosis: Tobacco use[ICD10: Z72.0] Diagnosis: Radiculopathy, lumbar region[ICD10: M54.16] Brynn Cota MD, [facility] CPT-4: 71094 04/08/2016 ([id number]) 29902 EST. PATIENT, LEVEL III Diagnosis: Mixed hyperlipidemia[ICD10: E78.2] Diagnosis: Cramp and spasm[ICD10: R25.2] Diagnosis: Essential (primary) hypertension[ICD10: I10] Brynn Cota MD, [facility] CPT-4: 32476 03/07/2016 ([id number]) 54690 EST. PATIENT, LEVEL III Diagnosis: Acute maxillary sinusitis, unspecified[ICD10: J01.00] [facility] CPT-4: 79069 09/05/2015 ([id number]) 39613 EST. 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] Diagnosis: Sciatica, left side[ICD10: M54.32] Diagnosis: Nicotine dependence, unspecified, uncomplicated[ICD10: F17.200] Diagnosis: Encounter for follow-up examination after completed treatment for conditions other than malignant neoplasm[ICD10: Z09] Diagnosis: Hypokalemia[ICD10: E87.6] [facility] CPT-4: 15735 08/07/2015 ([id number]) OFFICE VISIT, NEW - LEVEL 3 Diagnosis: Hyperlipidemia[ICD9: 272.4] Diagnosis: Osteoporosis[ICD9: 733.00] Diagnosis: Tobacco use[ICD9: 305.1] [facility] CPT-4: 33050 05/16/2015 Plan of Care Planned Activity Notes Codes Status Date Patient Education: Patient Medication Summary Completed 11/13/2017 Appointment: Brynn Davison WPtel: [address] [place], [place] [phone] (30 min) Complex 10/06/2017 Patient Education: Patient Medication Summary Completed 10/06/2017 Patient Education: Smoking and Tobacco Addiction Completed 10/06/2017 Patient Education: Hypertension Completed 10/06/2017 Appointment: Brynn Davison WPtel: [address] [place], [place] [phone] (30 min) Complex 09/16/2017 Patient Education: Patient Medication Summary Completed 09/16/2017 Patient Education: Smoking and Tobacco Addiction Completed 09/16/2017 Patient Education: Hypertension Completed 09/16/2017 Appointment: Brynn Davison WPtel: [phone] (30 min) Complex 07/15/2017 Patient Education: Patient Medication Summary Completed 07/15/2017 Patient Education: Smoking and Tobacco Addiction Completed 07/15/2017 Patient Education: Hypertension Completed 07/15/2017 [facility]ment[facility] [phone] [phone] [place] (30 min) Complex 05/13/2017 Patient Education: Patient Medication Summary Completed 05/13/2017 Patient Education: Smoking and Tobacco Addiction Completed 05/13/2017 Care Plan: Comp Metabolic Cancelled 05/13/2017 Care Plan: Cbc With Differential Cancelled 05/13/2017 Care Plan: Tsh Cancelled 05/13/2017 Appointment: Nurse Visit 04/30/2017 Patient Education: Patient Medication Summary Completed 04/30/2017 Patient Education: Smoking and Tobacco Addiction Completed 04/30/2017 Patient Education: Patient Medication Summary Completed 04/16/2017 Patient Education: Smoking and Tobacco Addiction Completed 04/16/2017 Appointment: Brynn Davison WPtel: [phone] [phone] [place] (15 min) Moderate 03/14/2017 Appointment: Brynn Davison WPtel: [phone] [place] (30 min) Complex 02/03/2017 App[facility]ment: [facility] [phone] [phone] [place] (15 min) Moderate 01/17/2017 Patient Education: Patient Medication Summary Completed 01/17/2017 Patient Education: Smoking and Tobacco Addiction Completed 01/17/2017 Appointment: Val Rojas WPtel[phone] (15 min) Moderate 01/01/2017 Patient Education: Patient Medication Summary Completed 01/01/2017 Patient Education: Smoking and Tobacco Addiction Completed 01/01/2017 Appointment: Brynn Davison WPtel[phone] [place] (15 min) Moderate 12/09/2016 Patient Education: Patient Medication Summary Completed 12/09/2016 Patient Education: Smoking and Tobacco Addiction Completed 12/09/2016 Patient Education: Patient Medication Summary Completed 11/15/2016 Patient Education: Smoking and Tobacco Addiction Completed 11/15/2016 Appointment: Brynn Davison WPtel[phone] (30 min) Complex 09/09/2016 Patient Education: Patient Medication Summary Completed 09/09/2016 Patient Education: Smoking and Tobacco Addiction Completed 09/09/2016 Patient Education: Hypertension Completed 09/09/2016 Referral: Vic Chu Referral Initiated 07/23/2016 Care Plan: Referral Order SNOMED-CT : [id number] Pending 07/16/2016 Appointment: [facility]jas [facility] [phone] [phone] (30 min) Complex 07/11/2016 Patient Education: Patient Medication Summary Completed 07/11/2016 Patient Education: Smoking and Tobacco Addiction Completed 07/11/2016 Patient Education: Patient Medication Summary Completed 06/10/2016 Patient Education: Smoking and Tobacco Addiction Completed 06/10/2016 Appointment: Brynn Davison WPtel: [phone] [phone] (30 min) Complex 04/08/2016 Patient Education: Patient Medication Summary Completed 04/08/2016 Patient Education: Smoking and Tobacco Addiction Completed 04/08/2016 Patient Education: Hypertension Completed 04/08/2016 Appointment: (30 min) Complex 03/07/2016 Patient Education: Patient Medication Summary Completed 03/07/2016 Patient Education: Smoking and Tobacco Addiction Completed 03/07/2016 Patient Education: Hypertension Completed 03/07/2016 Patient Education: Patient Medication Summary Completed 03/04/2016 Appointment: (15 min) Moderate 09/05/2015 Patient Education: Patient Medication Summary Completed 09/05/2015 Appointment: (30 min) Complex 08/07/2015 Patient Education: Patient Medication Summary Completed 08/07/2015 Patient Education: Smoking and Tobacco Addiction Completed 08/07/2015 Appointment: (S) New Patient 05/16/2015 Patient Education: Patient Medication Summary Completed 05/16/2015 Patient Education: Smoking and Tobacco Addiction Completed 05/16/2015 Referral: Vic Chu Referral Initiated Instructions No Instructions
--- OUTSIDE RECORDS SUMMARY | 2018-08-28 08:20 | XMS REPORT | Continuity of Care Document ---
Author Author [facility] Organization [facility] Address Unknown Phone Unavailable Allergies Active Description Code Type Severity Reaction Onset Reported/Identified Relationship to Patient Clinical Status Yes No Known Drug Allergies [id number] Drug Allergy Unknown N/A 12/31/2011 Medications There is no data. Problems Date Dx Coded Attending Type Code Diagnosis Diagnosed By 06/14/2013 LINDA TEJADA APRN Ot 812.20 FX HUMERUS NOS-CLOSED 06/14/2013 LINDA TEJADA APRN Ot 959.2 SHLDR/UPPER ARM INJ NOS 06/14/2013 LINDA TEJADA APRN Ot E000.8 OTHER EXTERNAL CAUSE STATUS 06/14/2013 LINDA TEJADA APRN Ot E849.0 ACCIDENT IN HOME 06/14/2013 LINDA TEJADA APRN Ot E885.9 FALL FROM SLIPPING, TRIPPING, OR STUMBLI 02/28/2014 BRENDA CHARLES, ELIE Jackman Ot 719.51 JT STIFFNESS NEC-SHLDER 02/28/2014 ELIE GUTIERREZ MD Ot 729.5 PAIN IN LIMB 02/28/2014 ELIE GUTIERREZ MD Ot V57.1 PHYSICAL THERAPY NEC 02/28/2014 ELIE GUTIERREZ MD Ot V58.43 AFTERCARE POST SURGERY INJURY/TRAUMA 11/01/2014 [...] SONU M Ot 786.09 11/01/2014 MIGDALIA CHARLES, SOUN M Ot 786.50 11/17/2014 MIGDALIA CHARLES, SONU M Ot 305.1 11/17/2014 MIGDALIA CHARLES, SONU M Ot 784.0 11/17/2014 MIGDALIA CHARLES, SONU M Ot 786.09 11/17/2014 MIGDALIA CHARLES, SONU M Ot 786.50 05/23/2015 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 Ot 305.1 05/23/2015 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 Ot 733.90 06/08/2015 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 Ot 305.1 06/08/2015 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 Ot 733.90 07/24/2015 MEGAN ESPINOSA MD Ot E78.5 HYPERLIPIDEMIA, UNSPECIFIED 07/24/2015 MEGAN ESPINOSA MD Ot E87.6 HYPOKALEMIA 07/24/2015 MEGAN ESPINOSA MD Ot F17.200 NICOTINE DEPENDENCE, UNSPECIFIED, UNCOMP 07/24/2015 MEGAN SEPINOSA MD Ot M46.1 SACROILIITIS, NOT ELSEWHERE CLASSIFIED 07/24/2015 MEGAN ESPINOSA MD Ot M54.30 SCIATICA, UNSPECIFIED SIDE 07/24/2015 MEGAN ESPINOSA MD Ot M62.81 MUSCLE WEAKNESS (GENERALIZED) 07/24/2015 MEGAN ESPINOSA MD Ot T39.8X5A ADVERSE EFFECT OF NONOPIOID ANALGES/ANTI 04/08/2016 Ot 793.82 INCONCLUSIVE MAMMOGRAM 04/08/2016 Ot [...] Ot 786.50 CHEST PAIN NOS 04/08/2016 KOFFI MCCAINP Ot 305.1 TOBACCO USE DISORDER 04/08/2016 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 Ot 733.90 BONE CARTILAGE DIS NOS 05/07/2016 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 Ot M54.5 LOW BACK PAIN 06/13/2016 Ot [...] 786.50 CHEST PAIN NOS 06/13/2016 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 Ot 305.1 TOBACCO USE DISORDER 06/13/2016 KOFFI MCCAINP Ot 733.90 BONE CARTILAGE DIS NOS 06/13/2016 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 Ot M54.5 LOW BACK PAIN 06/13/2016 KOFFI MCCAINP Ot Z12.31 ENCNTR SCREEN MAMMOGRAM FOR MALIGNANT NE 07/05/2016 KOFFI MCCAINP Ot Z12.31 ENCNTR SCREEN MAMMOGRAM FOR MALIGNANT NE 07/12/2016 RAVINDER HARRY PRODUCT TRANSFER PUMPER Ot M79.602 PAIN IN LEFT ARM 07/12/2016 RAVINDER HARRY PRODUCT TRANSFER PUMPER Ot R07.9 CHEST PAIN, UNSPECIFIED 07/12/2016 RAVINDER HARRY PRODUCT TRANSFER PUMPER Ot R11.0 NAUSEA 07/30/2016 Ot 793.82 INCONCLUSIVE MAMMOGRAM 07/30/2016 Ot V76.12 OTH SCREEN MAMMO-MALIGN NEOPLASM OF ZIAD 07/30/2016 Ot 305.1 TOBACCO USE DISORDER 07/30/2016 Ot 786.50 CHEST PAIN NOS 07/30/2016 Ot V12.72 PERSONAL HISTORY OF COLONIC POLYPS 07/30/2016 Ot V76.51 SCREEN MAL NEOP-COLON 07/30/2016 Ot 793.81 MAMMOGRAPHIC MICROCLACIFICATION 07/30/2016 MIGDALIA CHARLES, SONU Steel Ot V76.12 OTH SCREEN MAMMO-MALIGN NEOPLASM OF ZAID 07/30/2016 SONU NEGRON MD Ot 724.2 LUMBAGO 07/30/2016 SONU NEGRON MD Ot V54.11 AFTERCARE HEALING TRAUMATIC FX UPPER ARM 07/30/2016 SONU NEGRON MD Ot 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 07/30/2016 SONU NEGRON MD Ot V54.11 AFTERCARE HEALING TRAUMATIC FX UPPER ARM 07/30/2016 MIGDALIA CHARLES, SONU Steel Ot 305.1 TOBACCO USE DISORDER 07/30/2016 SONU NEGRON MD Ot 784.0 HEADACHE 07/30/2016 SONU NEGRON MD Ot 786.09 RESPIRATORY ABNORM NEC 07/30/2016 SONU NEGRON MD Ot 786.50 CHEST PAIN NOS 07/30/2016 KOFFI MCCAIN Ot 305.1 TOBACCO USE DISORDER 07/30/2016 KOFFI MCCAINP Ot 733.90 BONE CARTILAGE DIS NOS 07/30/2016 KOFFI MCCAIN Ot M54.5 LOW BACK PAIN 07/30/2016 KOFFI MCCAIN Ot Z12.31 ENCNTR SCREEN MAMMOGRAM FOR MALIGNANT NE 07/30/2016 RAVINDER HARRY PRODUCT TRANSFER PUMPER Ot M79.602 PAIN IN LEFT ARM 07/30/2016 RAVINDER HARRY APRN Ot R07.9 CHEST PAIN, UNSPECIFIED 07/30/2016 RAVINDER HARRY APRN Ot R11.0 NAUSEA 07/31/2016 ANTHONY LETI CHARLES Ot R07.9 CHEST PAIN, UNSPECIFIED 07/31/2016 LETI CRUZ MD Ot Z72.0 TOBACCO USE 07/31/2016 LETI CRUZ MD Ot Z82.49 FAMILY HX OF ISCHEM HEART DIS AND OTH DI 07/31/2016 LETI CRUZ MD Ot Z83.49 FAMILY HISTORY OF ENDO, NUTRITIONAL AND 08/01/2016 RAVINDER HARRY PRODUCT TRANSFER PUMPER Ot M79.602 PAIN IN LEFT ARM 08/01/2016 RAVINDER HARRY PRODUCT TRANSFER PUMPER Ot R07.9 CHEST PAIN, UNSPECIFIED 08/01/2016 RAVINDER HARRY PRODUCT TRANSFER PUMPER Ot R11.0 NAUSEA 08/19/2016 LETI CRUZ MD [...] MD Ot R07.9 CHEST PAIN, UNSPECIFIED 08/25/2016 ANTHONY MD, BASHAR J Ot Z72.0 TOBACCO USE 08/25/2016 LETI CRUZ MD Ot Z82.49 FAMILY HX [...] Z72.0 TOBACCO USE 09/17/2016 LETI CRUZ MD Ot Z82.49 FAMILY HX OF ISCHEM HEART DIS AND OTH DI 11/21/2016 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 Ot R10.13 EPIGASTRIC PAIN 11/21/2016 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 Ot R63.4 ABNORMAL WEIGHT LOSS 11/21/2016 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 Ot Z72.0 TOBACCO USE 11/21/2016 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 Ot R10.13 EPIGASTRIC PAIN 11/21/2016 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 Ot R63.4 ABNORMAL WEIGHT LOSS 11/21/2016 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 Ot Z72.0 TOBACCO USE 12/11/2016 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 Ot R10.13 EPIGASTRIC PAIN 12/11/2016 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 Ot R63.4 ABNORMAL WEIGHT LOSS 12/11/2016 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 Ot Z72.0 TOBACCO USE 12/24/2016 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 Ot R10.13 EPIGASTRIC PAIN 12/24/2016 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 Ot R63.4 ABNORMAL WEIGHT LOSS 12/24/2016 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 Ot Z72.0 TOBACCO USE 01/02/2017 RAVINDER HARRY PRODUCT TRANSFER PUMPER Ot M79.601 PAIN IN RIGHT ARM 01/02/2017 RAVINDER HARRY PRODUCT TRANSFER PUMPER Ot R93.7 ABNORMAL FINDINGS ON DIAGNOSTIC IMAGING 01/02/2017 RAVINDER HARRY PRODUCT TRANSFER PUMPER Ot M79.601 PAIN IN RIGHT ARM 01/02/2017 RAVINDER HARRY PRODUCT TRANSFER PUMPER Ot R93.7 ABNORMAL FINDINGS ON DIAGNOSTIC IMAGING 01/07/2017 RAVINDER HARRY PRODUCT TRANSFER PUMPER Ot M79.601 PAIN IN RIGHT ARM 01/07/2017 RAVINDER HARRY PRODUCT TRANSFER PUMPER Ot R93.7 ABNORMAL FINDINGS ON DIAGNOSTIC IMAGING 01/22/2017 RAVINDER HARRY PRODUCT TRANSFER PUMPER Ot M79.601 PAIN IN RIGHT ARM 01/22/2017 RAVINDER HARRY PRODUCT TRANSFER PUMPER Ot R93.7 ABNORMAL FINDINGS ON DIAGNOSTIC IMAGING 05/08/2017 RAVINDER HARRY PRODUCT TRANSFER PUMPER Ot M41.26 OTHER IDIOPATHIC SCOLIOSIS, LUMBAR REGIO 05/08/2017 RAVINDER HARRY PRODUCT TRANSFER PUMPER Ot M47.816 SPONDYLOSIS W/O MYELOPATHY OR RADICULOPA 05/08/2017 RAVINDER HARRY PRODUCT TRANSFER PUMPER Ot M53.3 SACROCOCCYGEAL DISORDERS, NOT ELSEWHERE 09/25/2017 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 Ot R10.32 LEFT LOWER QUADRANT PAIN 10/15/2017 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 Ot R10.32 LEFT LOWER QUADRANT PAIN 01/06/2018 JESÚS CHARLES, MEGAN Gregorio Ot I10 ESSENTIAL (PRIMARY) HYPERTENSION 01/09/2018 MEGAN ESPINOSA MD Ot I10 ESSENTIAL (PRIMARY) HYPERTENSION 01/09/2018 SONU NEGRON MD Ot V76.12 OTH SCREEN MAMMO-MALIGN NEOPLASM OF ZAID 01/09/2018 SONU NEGRON MD Ot 724.2 LUMBAGO 01/09/2018 SONU NEGRON MD Ot V54.11 AFTERCARE HEALING TRAUMATIC FX UPPER ARM 01/09/2018 SONU NEGRON MD Ot 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 01/09/2018 SONU NEGRON MD Ot V54.11 AFTERCARE HEALING TRAUMATIC FX UPPER ARM 01/09/2018 SONU NEGRON MD Ot 305.1 TOBACCO USE DISORDER 01/09/2018 SONU NEGRON MD Ot 784.0 HEADACHE 01/09/2018 SONU NEGRON MD Ot 786.09 RESPIRATORY ABNORM NEC 01/09/2018 SONU NEGRON MD Ot 786.50 CHEST PAIN NOS 01/09/2018 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 Ot 305.1 TOBACCO USE DISORDER 01/09/2018 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 Ot 733.90 BONE CARTILAGE DIS NOS 01/09/2018 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 Ot M54.5 LOW BACK PAIN 01/09/2018 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 Ot Z12.31 ENCNTR SCREEN MAMMOGRAM FOR MALIGNANT NE 01/09/2018 RAVINDER HARRY PRODUCT TRANSFER PUMPER Ot M79.602 PAIN IN LEFT ARM 01/09/2018 RAVINDER HARRY PRODUCT TRANSFER PUMPER Ot R07.9 CHEST PAIN, UNSPECIFIED 01/09/2018 RAVINDER HARRY PRODUCT TRANSFER PUMPER Ot R11.0 NAUSEA 01/09/2018 LETI CRUZ MD Ot R07.9 CHEST PAIN, UNSPECIFIED 01/09/2018 LETI CRUZ MD Ot Z72.0 TOBACCO USE 01/09/2018 LETI CRUZ MD Ot Z82.49 FAMILY HX OF ISCHEM HEART DIS AND OTH DI 01/09/2018 LETI CRUZ MD Ot Z83.49 FAMILY HISTORY OF ENDO, NUTRITIONAL AND 01/09/2018 LETI CRUZ MD Ot R07.9 CHEST PAIN, UNSPECIFIED 01/09/2018 LETI CRUZ MD Ot Z72.0 TOBACCO USE 01/09/2018 LETI CRUZ MD Ot Z82.49 FAMILY HX OF ISCHEM HEART DIS AND OTH DI 01/09/2018 LETI CRUZ MD Ot Z83.49 FAMILY HISTORY OF ENDO, NUTRITIONAL AND 01/09/2018 LETI CRUZ MD Ot R07.9 CHEST PAIN, UNSPECIFIED 01/09/2018 LETI CRUZ MD Ot Z72.0 TOBACCO USE 01/09/2018 LETI CRUZ MD Ot Z82.49 FAMILY HX OF ISCHEM HEART DIS AND OTH DI 01/09/2018 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 Ot R10.13 EPIGASTRIC PAIN 01/09/2018 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 Ot R63.4 ABNORMAL WEIGHT LOSS 01/09/2018 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 Ot Z72.0 TOBACCO USE 01/09/2018 RAVINDER HARRY PRODUCT TRANSFER PUMPER Ot M79.601 PAIN IN RIGHT ARM 01/09/2018 RAVINDER HARRY PRODUCT TRANSFER PUMPER Ot R93.7 ABNORMAL FINDINGS ON DIAGNOSTIC IMAGING 01/09/2018 RAVINDER HARRY PRODUCT TRANSFER PUMPER Ot M41.26 OTHER IDIOPATHIC SCOLIOSIS, LUMBAR REGIO 01/09/2018 RAVINDER HARRY PRODUCT TRANSFER PUMPER Ot M47.816 SPONDYLOSIS W/O MYELOPATHY OR RADICULOPA 01/09/2018 RAVINDER HARRY PRODUCT TRANSFER PUMPER Ot M53.3 SACROCOCCYGEAL DISORDERS, NOT ELSEWHERE 01/09/2018 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 Ot R10.32 LEFT LOWER QUADRANT PAIN 01/09/2018 JESÚS CHARLES, MEGAN Gregorio Ot I10 ESSENTIAL (PRIMARY) HYPERTENSION 01/12/2018 JESÚS CHARLES, MEGAN A Ot I10 ESSENTIAL (PRIMARY) HYPERTENSION 01/13/2018 JESÚS CHARLES, MEGAN A Ot I10 ESSENTIAL (PRIMARY) HYPERTENSION 01/14/2018 JESÚS CHARLES, MEGAN A Ot I10 ESSENTIAL (PRIMARY) HYPERTENSION 02/06/2018 JESÚS CHARLES, MEGAN A Ot I10 ESSENTIAL (PRIMARY) HYPERTENSION Procedures There is no data. Results Test Result Range Complete blood count (CBC) with automated white blood cell (WBC) differential - 07/11/16 12:35 Blood leukocytes automated count (number/volume) 8.5 10*3/uL 4.3-11.0 Blood erythrocytes automated count (number/volume) 4.69 10*6/uL 4.35-5.85 Venous blood hemoglobin measurement (mass/volume) 14.9 [...] Automated blood platelet mean volume measurement 10.6 [foz_us] 7.4-10.4 Automated blood neutrophils/100 leukocytes 62 % [...] Serum or plasma sodium measurement (moles/volume) 142 mmol/L 135-145 Serum or plasma potassium measurement (moles/volume) 3.7 mmol/L 3.6-5.0 Serum or plasma chloride measurement (moles/volume) 110 mmol/L 98-107 Carbon dioxide 22 mmol/L 21-32 Serum or plasma anion gap determination (moles/volume) 10 mmol/L 5-14 Serum or plasma urea nitrogen measurement (mass/volume) 15 mg/dL 7-18 Serum or plasma creatinine measurement (mass/volume) 0.90 mg/dL 0.60-1.30 Serum or plasma urea nitrogen/creatinine mass ratio 17 NRG Serum or plasma creatinine measurement with calculation of estimated glomerular filtration rate > NRG Serum or plasma glucose measurement (mass/volume) 93 mg/dL 70-105 Serum or plasma calcium measurement (mass/volume) 10.0 mg/dL 8.5-10.1 Serum or plasma total bilirubin measurement [...] or plasma troponin i.cardiac measurement (mass/volume) < ng/ mL <0.30 [id number] - 09/24/17 08:52 Serum or plasma urea nitrogen measurement (mass/volume) 12 mg/dL 7-18 Serum or plasma creatinine measurement (mass/volume) 0.95 mg/dL 0.60-1.30 Serum or plasma urea nitrogen/creatinine mass ratio 13 NRG Serum or plasma creatinine measurement with calculation of estimated glomerular filtration rate 57 NRG Encounters ACCT No. Visit Date/Time Discharge Status Pt. Type Provider Facility Loc./Unit Complaint [id number] 01/13/2018 09:44:00 01/13/2018 23:59:59 CLS Outpatient MEGAN ESPINOSA MD [facility] RAD UNCONTROLLED HYPERTENSION [id number] 09/24/2017 08:40:00 09/24/2017 23:59:59 CLS Outpatient KOFFI MCCAIN [facility] RAD LLQ PAIN [id number] 04/16/2017 14:27:00 04/16/2017 23:59:59 CLS Outpatient RAVINDER HARRY APRN [facility] RAD BACK PAIN,LUMBAR, THORACIC PAIN [id number] 01/01/2017 08:53:00 01/01/2017 23:59:59 CLS Outpatient RAVINDER HARRY APRN [facility] RAD POSSIBLE BLOOD CLOT, RT ARM PAIN [id number] 11/20/2016 12:43:00 11/20/2016 23:59:59 CLS Outpatient KOFFI MCCAIN [facility] RAD ABD PAIN, WT LOSS, TOBACCO USE [id number] 08/26/2016 14:58:00 08/26/2016 23:59:59 CLS Outpatient ANTHONY CHARLES, LETI Portillo [facility] RAD CHEST PAIN SYNDROME [id number] 08/19/2016 06:51:00 08/19/2016 23:59:59 CLS Outpatient LETI CRUZ MD [facility] CARD CHEST PAIN SYNDROME,CAD [id number] 07/30/2016 14:35:00 07/30/2016 23:59:59 CLS Outpatient LETI CRUZ MD [facility] CARD CHEST PAIN SYNDROME,HLP, CAD,CAROTID ARTERY STENOSI [id number] 07/11/2016 12:12:00 07/11/2016 23:59:59 CLS Outpatient RAVINDER HARRY APRN [facility] CARD CHEST PAIN,LT ARM PAIN,NAUSEA [id number] 06/13/2016 10:49:00 06/13/2016 23:59:59 CLS Outpatient KOFFI MCCAINP [facility] RAD SCREENING [id number] 04/08/2016 11:46:00 04/08/2016 23:59:59 CLS Outpatient KOFFI MCCAINP [facility] RAD LOW BACK PAIN [id number] 07/28/2015 10:24:00 07/28/2015 23:59:59 CLS Preadmit MEGAN ESPINOSA MD [facility] REHAB [id number] 07/23/2015 11:33:00 07/24/2015 10:57:00 DIS Inpatient MEGAN ESPINOSA MD [facility] CSD LEFT SIDED WEAKNESS [id number] 05/18/2015 09:12:00 05/18/2015 23:59:59 CLS Outpatient 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 [facility] RAD OSTEOPOROSIS TOBACCO USE [id number] 10/19/2014 07:55:00 10/19/2014 23:59:59 CLS Outpatient SONU NEGRON MD [facility] RAD HEADACHES,DYSGEUSIA [id number] 12/28/2013 12:53:00 02/28/2014 00:01:00 DIS Outpatient ELIE GUTIERREZ MD [facility] REHAB L SHOULDER HEMIARTHROPLASTY, L CARPAL TUNNEL SYND [id number] 10/19/2013 12:14:00 10/19/2013 23:59:59 CLS Outpatient SONU NEGRON MD [facility] RAD PAIN IN LEFT SHOULDER [id number] 08/16/2013 10:40:00 08/16/2013 23:59:59 CLS Outpatient SONU NEGRON MD [facility] RAD F/U FX HUMERUS,PACK PAIN [id number] 06/14/2013 12:53:00 06/14/2013 14:41:00 DIS Emergency LINDA TEJADA APRN [facility] ER FALL/LEFT SHOULDER INJURY [id number] 03/08/2013 09:06:00 03/08/2013 23:59:59 CLS Outpatient SONU NEGRON MD [facility] RAD SCREENING [id number] 08/28/2018 07:57:00 ACT Emergency DANILO CERNA MD [facility] ER L SIDED LEG PAIN [id number] 11/01/2014 16:06:00 Document Registration [id number] 01/14/2012 12:50:00 Document Registration [id number] 01/02/2012 05:48:00 Document Registration [id number] 12/31/2011 06:17:00 Document Registration [id number] 12/27/2011 10:51:00 Document Registration [id number] 07/22/2015 09:46:22 ACT Document Registration [id number] 07/15/2017 11:36:49 07/15/2017 23:59:59 CLS Outpatient
--- NOTE | 2018-08-28 08:46 | ED Lower Extremity ---
General Chief Complaint: Lower Extremity Stated Complaint: L SIDED LEG PAIN Source: patient Exam Limitations: no limitations History of Present Illness Date Seen by Provider: Aug 28, 2018 Time Seen by Provider: 08:41 Initial Comments The patient is a 78-year-old white female who presents with complaints of increased left leg pain. She states that she is suffered from this for several years but it has gotten more unbearable over the last couple of days. There has been no specific injury. The pain is stated to be left anterior and extends both to the upper thigh and across the pelvic rim. It does not seem to make any difference relative to movement or not. She had an observation admission in July 2015 for this complaint. In [address] abdomen and pelvis which was negative and triggered by left lower quadrant pain Onset: other (years) Method of Injury: unknown Allergies and Home Medications Allergies Coded Allergies: No Known Drug Allergies (Unverified , 12/31/11) Home Medications Alendronate Sodium 35 Mg Tablet, 35 MG PO WEEKLY, (Reported) Calcium Carbonate/Vitamin D3 1 Each Tablet, 1 EACH PO BID, (Reported) Gabapentin 300 Mg Capsule, 300 MG PO BID, (Reported) Gluc King/Chondroitin Sulfate A 1 Each Capsule, 2 EACH PO DAILY, (Reported) Hydrochlorothiazide 25 Mg Tablet, 25 MG PO DAILY, (Reported) Hydrocodone Bit/Acetaminophen 1 Each Tablet, 1 TAB PO Q4H PRN for pain Prescribed by: MEGAN COTA on 07/24/15857 Niacin 500 Mg Tablet.sa, 500 MG PO DAILY, (Reported) Potassium Chloride 10 Meq Tablet.er, 10 MEQ PO THREE TIMES WEEKLY Prescribed by: MEGAN COTA on 07/24/15857 Prednisone 20 Mg Tab, 20 MG PO DAILY Prescribed by: MEGAN COTA on 07/24/15858 Simvastatin 40 Mg Tablet, 40 MG PO DAILY, (Reported) Patient Home Medication List Home Medication List Reviewed: Yes Review of Systems Constitutional: see HPI EENTM: no symptoms reported, hearing loss Respiratory: no symptoms reported Cardiovascular: no symptoms reported Gastrointestinal: no symptoms reported Genitourinary: no symptoms reported Musculoskeletal: see HPI Skin: no symptoms reported Psychiatric/Neurological: No Symptoms Reported Past Dzztndk-Feryvy-Qtakcv Hx Immunizations Up To Date Date of Pneumonia Vaccine: Jun 22, 2011 Past Medical History Appendectomy, Hysterectomy, Orthopedic, Tonsillectomy High Cholesterol Osteoporosis Physical Exam Vital Signs Vital Signs - First Documented 08/28/18 09:06 Temp 98.2 Pulse 64 Resp 18 B/P (MAP) 141/92 (108) Pulse Ox 96 Capillary Refill : Height, Weight, BMI Height: 5'1.00" Weight: 129lbs. 10.0oz. 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 There is no pain to change in position or with movement. Progress/Results/Core Measures Results/Orders Lab Results Laboratory Tests Test 08/28/18 09:35 08/28/18 10:25 Range/Units White Blood Count 7.0 4.3-11.0 10^3/uL Red Blood Count 4.57 4.35-5.85 10^6/uL Hemoglobin 14.5 11.5-16.0 G/DL Hematocrit 43 35-52 % Mean Corpuscular Volume 94 80-99 FL Mean Corpuscular Hemoglobin 32 25-34 PG Mean Corpuscular Hemoglobin Concent 34 32-36 G/DL Red Cell Distribution Width 13.9 10.0-14.5 % Platelet Count 192 130-400 10^3/uL Mean Platelet Volume 10.2 7.4-10.4 FL Neutrophils (%) (Auto) 67 42-75 % Lymphocytes (%) (Auto) 23 12-44 % Monocytes (%) (Auto) 8 0-12 % Eosinophils (%) (Auto) 2 0-10 % Basophils (%) (Auto) 1 0-10 % Neutrophils # (Auto) 4.7 1.8-7.8 X 10^3 Lymphocytes # (Auto) 1.6 1.0-4.0 X 10^3 Monocytes # (Auto) 0.5 0.0-1.0 X 10^3 Eosinophils # (Auto) 0.1 0.0-0.3 10^3/uL Basophils # (Auto) 0.1 0.0-0.1 10^3/uL Sodium Level 140 135-145 MMOL/L Potassium Level 4.1 3.6-5.0 MMOL/L Chloride Level 109 H 98-107 MMOL/L Carbon Dioxide Level 23 21-32 MMOL/L Anion Gap 8 5-14 MMOL/L Blood Urea Nitrogen 13 7-18 MG/DL Creatinine 0.73 0.60-1.30 MG/DL Estimat Glomerular Filtration Rate > 60 BUN/Creatinine Ratio 18 Glucose Level 94 70-105 MG/DL Calcium Level 9.5 8.5-10.1 MG/DL Corrected Calcium 9.6 8.5-10.1 MG/DL Total Bilirubin 0.6 0.1-1.0 MG/DL Aspartate Amino Transf (AST/SGOT) 26 5-34 U/L Alanine Aminotransferase (ALT/SGPT) 17 0-55 U/L Alkaline Phosphatase 41 40-136 U/L Total Protein 6.4 6.4-8.2 GM/DL Albumin 3.9 3.2-4.5 GM/DL Urine Color YELLOW Urine Clarity CLEAR Urine pH 7 5-9 Urine Specific Ackworth 1.010 L 1.016-1.022 Urine Protein NEGATIVE NEGATIVE Urine Glucose (UA) NEGATIVE NEGATIVE Urine Ketones NEGATIVE NEGATIVE Urine Nitrite NEGATIVE NEGATIVE Urine Bilirubin NEGATIVE NEGATIVE Urine Urobilinogen NORMAL NORMAL MG/DL Urine Leukocyte Esterase 1+ H NEGATIVE Urine RBC (Auto) NEGATIVE NEGATIVE Urine RBC RARE /HPF Urine WBC RARE /HPF Urine Squamous Epithelial Cells 0-2 /HPF Urine Crystals NONE /LPF Urine Bacteria NEGATIVE /HPF Urine Casts NONE /LPF Urine Mucus NEGATIVE /LPF Urine Culture Indicated NO My Orders Orders - DANILO CERNA MD Cbc With Automated Diff (08/28/18 09:06) Comprehensive Metabolic Panel (08/28/18 09:06) Ua Culture If Indicated (08/28/18 09:06) Ct Lumbar Spine Wo (08/28/18 09:06) Vital Signs/I&O 08/28/18 09:06 Temp 98.2 Pulse 64 Resp 18 B/P (MAP) 141/92 (108) Pulse Ox 96 Departure Communication (Admissions) CT scan shows extensive arthritic changes in the lumbar spine. No apparent spinal stenosis is elicited. Impression Primary Impression: neuralgia Disposition: 01 HOME, SELF-CARE Condition: Stable/Unchanged Departure-Patient Inst. Decision time for Depature: 10:59 Referrals: MEGAN COTA MD (PCP/Family) Primary Care Physician Add. Discharge Instructions: All discharge instructions reviewed with patient and/or family. Voiced understanding. Take the hydrocodone as directed. If no improvement in her pain status see Dr. Cota next week. Scripts Hydrocodone Bit/Acetaminophen (Hydrocodone/Acetaminophen 5/325mg Tablet) 1 Tab Tab 1 TAB PO Q4-6HR PRN for PAIN-MODERATE MDD 10, #20 TAB Prov: DANILO CERNA MD 08/28/18 DANILO CERNA MD Aug 28, 2018 08:46
[2018-08-28 09:42] LABS: BASOPHILS # (AUTO) 0.1 10^3/uL (0.0-0.1); BASOPHILS % (AUTO) 1 % (0-10); EOSINOPHILS # (AUTO) 0.1 10^3/uL (0.0-0.3); EOSINOPHILS % (AUTO) 2 % (0-10); HEMATOCRIT 43 % (35-52); HEMOGLOBIN 14.5 G/DL (11.5-16.0); LYMPHOCYTES # (AUTO) 1.6 X 10^3 (1.0-4.0); LYMPHOCYTES % (AUTO) 23 % (12-44); MEAN CORPUSCULAR HEMOGLOBIN 32 PG (25-34); MEAN CORPUSCULAR HGB CONC 34 G/DL (32-36); MEAN CORPUSCULAR VOLUME 94 FL (80-99); MEAN PLATELET VOLUME 10.2 FL (7.4-10.4); MONOCYTES # (AUTO) 0.5 X 10^3 (0.0-1.0); MONOCYTES % (AUTO) 8 % (0-12); NEUTROPHILS # (AUTO) 4.7 X 10^3 (1.8-7.8); NEUTROPHILS % (AUTO) 67 % (42-75); PLATELET COUNT 192 10^3/uL (130-400); RED BLOOD COUNT 4.57 10^6/uL (4.35-5.85); RED CELL DISTRIBUTION WIDTH 13.9 % (10.0-14.5)
[2018-08-28 10:01] LABS: CARBON DIOXIDE 23 MMOL/L (21-32); CHLORIDE 109 MMOL/L (98-107); POTASSIUM 4.1 MMOL/L (3.6-5.0); SODIUM 140 MMOL/L (135-145)
[2018-08-28 10:02] LABS: ALANINE AMINOTRANSFERASE 17 U/L (0-55); ALBUMIN 3.9 GM/DL (3.2-4.5); ALKALINE PHOSPHATASE 41 U/L (40-136); BILIRUBIN,TOTAL 0.6 MG/DL (0.1-1.0); BUN/CREATININE RATIO 18; CALCIUM 9.5 MG/DL (8.5-10.1); CREATININE SERUM 0.73 MG/DL (0.60-1.30); GFR ESTIMATED > 60; GLUCOSE 94 MG/DL (70-105); TOTAL PROTEIN 6.4 GM/DL (6.4-8.2)
--- NOTE | 2018-08-28 10:13 | Diagnostic Imaging Report ---
PROCEDURE: CT lumbar spine without contrast. TECHNIQUE: Multiple contiguous axial images were obtained through the lumbar spine without the use of intravenous contrast. Sagittal and coronal reformations were then performed. INDICATION: Left hip pain. COMPARISON: CT dated 09/24/2017. FINDINGS: For purposes of this exam, last well-formed disc space is denoted the L5-S1 level. Evaluation of static alignment demonstrates mild grade 1 retrolisthesis at the L1-L2 and L2-L3 levels. There is also slight dextroscoliotic deformity epicentered at the L3 vertebral body. There is no evidence of jumped facets. Lumbar vertebral body heights are maintained. There is no evidence of acute fracture. There is wedge-shaped compression deformity of the T12 vertebral body. This however shown to be chronic when compared to previous CT dated 09/24/2017. Note is also made of multilevel degenerative changes consisting of intervertebral disc height loss with anterior and posterior osteophyte formations and multilevel facet arthropathy. Evaluation of spinal canal contents is suboptimal secondary to CT modality, but there does appear to be moderate stenosis at the L3-L4 and L4-L5 levels. Note is also made of multilevel bilateral neuroforaminal stenosis. Pre-and paravertebral soft tissue structures are unremarkable. Note is made of diffuse calcified aortic and arterial atherosclerosis. Included portions of the lungs are clear. IMPRESSION: 1. No acute fracture or dislocation of the lumbar spine. 2. Moderate multilevel degenerative changes. Dictated by: Dictated on workstation # [id number]
[2018-08-28 10:34] LABS: BILIRUBIN,URINE NEGATIVE (NEGATIVE); CLARITY,URINE CLEAR; COLOR,URINE YELLOW; GLUCOSE, URINE (UA) NEGATIVE (NEGATIVE); KETONES,URINE NEGATIVE (NEGATIVE); LEUKOCYTE ESTERASE ,URINE 1+ (NEGATIVE); NITRITE,URINE NEGATIVE (NEGATIVE); PH,URINE 7 (5-9); PROTEIN,URINE NEGATIVE (NEGATIVE); UROBILINOGEN,URINE NORMAL (NORMAL)
[2018-08-28 10:53] LABS: BACTERIA,URINE NEGATIVE /HPF; RBC,URINE RARE /HPF; WBC,URINE RARE /HPF
[2018-08-28 10:54] LABS: SQUAMOUS EPITHELIAL CELL,UR 0-2 /HPF
[2018-08-28] MEDS ORDERED: ACHD5005 PO (11:03)
[2018-08-28] MEDS ORDERED: HYDROcodone/APAP 5 MG/325 MG (LORTAB) TAB ONE (11:06)
[2018-08-28 11:18] VITALS: BP 146/80
== END 2018-08-28 11:18 | disposition home or self-care (01) ==
LOC: EDUNIT# 07:56 → ER 07:57
DX: G58.8 Other specified mononeuropathies (principal); E78.00 Pure hypercholesterolemia, unspecified; M81.0 Age-related osteoporosis without current pathological fracture; Z79.52 Long term (current) use of systemic steroids; Z90.710 Acquired absence of both cervix and uterus; Z90.89 Acquired absence of other organs
CPT/HCPCS: 36415; 72131; 80053; 81000; 85025

== ENCOUNTER → 2018-09-01 | Outpatient (CLI) | payer MEDICARE, OTHER ==
--- NOTE | 2018-09-01 10:42 | Diagnostic Imaging Report ---
INDICATION: Knee pain. TECHNIQUE: Three views of the left knee were obtained. FINDINGS: The bones are osteopenic. The alignment is normal. There is no fracture or dislocation. The soft tissues are unremarkable. IMPRESSION: No acute fracture or dislocation. Dictated by: Dictated on workstation # [id number]
== END ==
LOC: RAD 09:05
PROVIDERS: ATTEND Nurse Practitioner Family
DX: M25.562 Pain in left knee (principal)
CPT/HCPCS: 73562

== ENCOUNTER 2019-09-04 12:26 | Emergency (ER) | payer MEDICARE, OTHER ==
[~2019-09-04] VITALS: Ht 152.4 cm; Wt 20.0 kg
[2019-09-04 12:44] LABS: BASOPHILS # (AUTO) 0.1 10^3/uL (0.0-0.1); BASOPHILS % (AUTO) 1 % (0-10); EOSINOPHILS # (AUTO) 0.1 10^3/uL (0.0-0.3); EOSINOPHILS % (AUTO) 1 % (0-10); HEMATOCRIT 44 % (35-52); HEMOGLOBIN 14.8 G/DL (11.5-16.0); LYMPHOCYTES # (AUTO) 1.5 X 10^3 (1.0-4.0); LYMPHOCYTES % (AUTO) 15 % (12-44); MEAN CORPUSCULAR HEMOGLOBIN 31 PG (25-34); MEAN CORPUSCULAR HGB CONC 33 G/DL (32-36); MEAN CORPUSCULAR VOLUME 92 FL (80-99); MEAN PLATELET VOLUME 10.1 FL (7.4-10.4); MONOCYTES # (AUTO) 0.6 X 10^3 (0.0-1.0); MONOCYTES % (AUTO) 6 % (0-12); NEUTROPHILS # (AUTO) 7.8 X 10^3 (1.8-7.8); NEUTROPHILS % (AUTO) 78 % (42-75); PLATELET COUNT 215 10^3/uL (130-400); RED CELL DISTRIBUTION WIDTH 14.6 % (10.0-14.5); WHITE BLOOD COUNT 10.1 10^3/uL (4.3-11.0)
[2019-09-04] MEDS ORDERED: ASPIRIN 81 MG CHEW (CHILDREN'S ASA) PO ONE (12:45)
--- NOTE | 2019-09-04 12:54 | ED Chest Pain ---
General Chief Complaint: Chest Pain Stated Complaint: CHEST PAIN Nursing Triage Note: ARRIVED VIA WC FROM PO. STATES SHE WAS AT A STORE AND BROKE OUT IN A COLD SWEAT THEN STARTED HAVING CHEST PIAN. CHEST PAIN COMES AND GOES. ALSO COMPLAINS OF SOA SINCE LAST NIGHT. Nursing Sepsis Screen: No Definite Risk Source: patient Exam Limitations: no limitations ([facility]) History of Present Illness Date Seen by Provider: Sep 04, 2019 Time Seen by Provider: 12:47 Initial Comments 79 y.o F w/ PMH of HTN and Parkinson's who presents to the ED via private vehicle w/ Left sided CP w/ onste 20mins prior to arrival while she and her daughter were walking back to their car after shopping. She describes the CP as a sharp, waxing-waning, non-radiating pain and notes it was associated with diaphoresis when it onset. Also reports some SOA which onset last night. Denies any associated N/V/D, cough, dizziness, fever or any other sx. 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 Pt denies hx of similar symptoms but does note she has seen Dr. Chu in the past but does not regularly f/u w/ him. She does report strong cardiac FH. Denies CP at the time of exam. Timing/Duration: 1-2 days Severity/Quality: sharp Location: central (left sided) Radiation: no radiation Activities at Onset: none Prior CP/Workup: echocardiography, stress test ASA po NAPHTHALENE OPERATOR: No NTG SL NAPHTHALENE OPERATOR: No Associated Symptoms: diaphoresis ([facility]) Initial Comments Here with acute onset of chest discomfort that is vague and she describes it as sharp. Onset about 20 minutes prior to arrival and has changed in intensity since then and on my evaluation was essentially gone. She has not taken aspirin. She's had previous workup that have been negative including echocardiogram and stress test. She lives alone. Does follow with Dr. Cota. Family does check on her frequently. She currently has one of her daughters with her from [place] who is getting ready to head back home and the daughter states that she is a little concerned that this may be related to her departure. Patient has been encouraged to change living facilities from living at home alone to living in assisted living but the patient has refused/declined. Patient states that she is doing just fine at home. She also admits that she is having difficulty getting to appointments and other things. (ELODIA SAUCEDO MD) Allergies and Home Medications Allergies Coded Allergies: No Known Drug Allergies (Unverified , 12/31/11) Home Medications Alendronate Sodium 35 Mg Tablet, 35 MG PO WEEKLY, (Reported) Calcium Carbonate/Vitamin D3 1 Each Tablet, 1 EACH PO BID, (Reported) Gabapentin 300 Mg Capsule, 300 MG PO BID, (Reported) Gluc King/Chondroitin Sulfate A 1 Each Capsule, 2 EACH PO DAILY, (Reported) Hydrochlorothiazide 25 Mg Tablet, 25 MG PO DAILY, (Reported) Hydrocodone Bit/Acetaminophen 1 Each Tablet, 1 TAB PO Q4H PRN for pain Prescribed by: MEGAN COTA on 07/24/15 08 Hydrocodone Bit/Acetaminophen 1 Tab Tab, 1 TAB PO Q4-6HR PRN for PAIN-MODERATE Prescribed by: DANILO CERNA on 08/28/18 1103 Niacin 500 Mg Tablet.sa, 500 MG PO DAILY, (Reported) Potassium Chloride 10 Meq Tablet.er, 10 MEQ PO THREE TIMES WEEKLY Prescribed by: MEGAN COTA on 07/24/15857 Prednisone 20 Mg Tab, 20 MG PO DAILY Prescribed by: MEGAN COTA on 07/24/15 0859 Simvastatin 40 Mg Tablet, 40 MG PO DAILY, (Reported) Patient Home Medication List Home Medication List Reviewed: Yes (ELODIA SAUCEDO MD) Review of Systems Review of Systems Constitutional: No chills, No fever EENTM: No Symptoms Reported Respiratory: Denies Cough; Shortness of Air (since last night) Cardiovascular: Chest Pain (left sided); Denies Edema, Denies Irregular Heart Rate, Denies Palpitations Gastrointestinal: Denies Abdomen Distended, Denies Abdominal Pain, Denies Constipated, Denies Diarrhea, Denies Nausea, Denies Vomiting Genitourinary: Denies Burning, Denies Discharge, Denies Drainage, Denies Frequency, Denies Hematuria Musculoskeletal: no symptoms reported Skin: No pruritus, No rash Psychiatric/Neurological: No Symptoms Reported Endocrine: No Symptoms Reported Hematologic/Lymphatic: No Symptoms Reported ([facility]) All Other Systems Reviewed Negative Unless Noted: Yes (ELODIA SAUCEDO MD) Past Sbfsuel-Anssdn-Zeipqe Hx Past Med/Social Hx: Reviewed Nursing Past Med/Soc Hx (ELODIA SAUCEDO MD) Patient Social History Alcohol Use: Rarely Uses Recreational Drug Use: No Smoking Status: Current Everyday Smoker Type Used: Cigarettes Recent Foreign Travel: No Contact w/Someone Who Travel: No Recent [facility] Immunizations Up To Date Date of Pneumonia Vaccine: Jun 22, 2011 [facility] Past Medical History Surgeries: Yes (JAW, l shoulder) Appendectomy, Hysterectomy, Orthopedic, Tonsillectomy Respiratory: No Cardiac: Yes High Cholesterol Neurological: Yes Parkinson's Disease Genitourinary: No Gastrointestinal: No Musculoskeletal: Yes Osteoporosis Endocrine: No Cancer: No Psychosocial: No Integumentary: No Blood Disorders: No [facility] Family Medical History Reviewed Nursing Family Hx (ELODIA SAUCEDO MD) Physical Exam Vital Signs Vital Signs - First Documented 09/04/19 12:26 Temp 37.0 Pulse 72 Resp 16 B/P (MAP) 150/73 (98) Pulse Ox 98 O2 Delivery Room Air (ELODIA SAUCEDO MD) Vital Signs Capillary Refill : Less Than 3 Seconds ([facility]) Height, Weight, BMI Height: 5'2.00" Weight: 112lbs. 10.0oz. 50.054192wd; 8.00 BMI Method:Stated General Appearance: No Apparent Distress, WD/WN, Thin HEENT: PERRL/EOMI, Normal ENT Inspection, Pharynx Normal Neck: Normal Inspection, Non Tender, Supple Respiratory: Chest Non Tender, Lungs Clear, Normal Breath Sounds, No Accessory Muscle Use, No Respiratory Distress Cardiovascular: Regular Rate, Rhythm, No Edema, No Gallop, No JVD, No Murmur, Normal Peripheral Pulses Gastrointestinal: Normal Bowel Sounds, No Organomegaly, No Pulsatile Mass, Non Tender, Soft Extremity: Normal Capillary Refill, Normal Inspection, Non Tender Neurologic/Psychiatric: Alert, Oriented x3 Skin: Normal Color, Warm/Dry Lymphatic: No Adenopathy ([facility] General Appearance: Anxious, Thin Neck: Non Tender, Supple Respiratory: Lungs Clear, Normal Breath Sounds Cardiovascular: Regular Rate, Rhythm, No Murmur Gastrointestinal: Non Tender, Soft Extremity: Normal Inspection, Non Tender Neurologic/Psychiatric: Alert, Oriented x3, Other (Parkinson tremor especially noted of the head and neck) Skin: Normal Color, Warm/Dry (ELODIA SAUCEDO MD) Progress/Results/Core Measures Results/Orders Lab Results Laboratory Tests Test 09/04/19 12:35 09/04/19 14:35 Range/Units White Blood Count 10.1 4.3-11.0 10^3/uL Red Blood Count 4.85 4.35-5.85 10^6/uL Hemoglobin 14.8 11.5-16.0 G/DL Hematocrit 44 35-52 % Mean Corpuscular Volume 92 80-99 FL Mean Corpuscular Hemoglobin 31 25-34 PG Mean Corpuscular Hemoglobin Concent 33 32-36 G/DL Red Cell Distribution Width 14.6 H 10.0-14.5 % Platelet Count 215 130-400 10^3/uL Mean Platelet Volume 10.1 7.4-10.4 FL Neutrophils (%) (Auto) 78 H 42-75 % Lymphocytes (%) (Auto) 15 12-44 % Monocytes (%) (Auto) 6 0-12 % Eosinophils (%) (Auto) 1 0-10 % Basophils (%) (Auto) 1 0-10 % Neutrophils # (Auto) 7.8 1.8-7.8 X 10^3 Lymphocytes # (Auto) 1.5 1.0-4.0 X 10^3 Monocytes # (Auto) 0.6 0.0-1.0 X 10^3 Eosinophils # (Auto) 0.1 0.0-0.3 10^3/uL Basophils # (Auto) 0.1 0.0-0.1 10^3/uL Prothrombin Time 12.5 12.2-14.7 SEC INR Comment 0.9 0.8-1.4 Activated Partial Thromboplast Time 27 24-35 SEC Sodium Level 137 135-145 MMOL/L Potassium Level 4.1 3.6-5.0 MMOL/L Chloride Level 105 98-107 MMOL/L Carbon Dioxide Level 18 L 21-32 MMOL/L Anion Gap 14 5-14 MMOL/L Blood Urea Nitrogen 20 H 7-18 MG/DL Creatinine 0.85 0.60-1.30 MG/DL Estimat Glomerular Filtration Rate > 60 BUN/Creatinine Ratio 24 Glucose Level 116 H 70-105 MG/DL Calcium Level 9.9 8.5-10.1 MG/DL Corrected Calcium 9.7 8.5-10.1 MG/DL Magnesium Level 1.9 1.6-2.4 MG/DL Total Bilirubin 0.4 0.1-1.0 MG/DL Aspartate Amino Transf (AST/SGOT) 30 5-34 U/L Alanine Aminotransferase (ALT/SGPT) 25 0-55 U/L Alkaline Phosphatase 68 40-136 U/L Myoglobin 47.0 10.0-92.0 NG/ML Troponin I < 0.028 < 0.028 <0.028 NG/ML Total Protein 7.1 6.4-8.2 GM/DL Albumin 4.2 3.2-4.5 GM/DL (ELODIA SAUCEDO MD) My Orders Orders - ELODIA SAUCEDO MD Cbc With Automated Diff (09/04/19 12:38) Magnesium (09/04/19 12:38) Chest 1 View, Ap/Pa Only (09/04/19 12:38) Ekg Tracing (09/04/19 12:38) Cardiac Profile 1 (09/04/19 12:38) Comprehensive Metabolic Panel (09/04/19 12:38) Myoglobin Serum (09/04/19 12:38) Protime With Inr (09/04/19 12:38) Partial Thromboplastin Time (09/04/19 12:38) O2 (09/04/19 12:38) Monitor-Rhythm Ecg Trace Only (09/04/19 12:38) Lipid Panel (09/05/19 06:00) Ed Iv/Invasive Line Start (09/04/19 12:38) Aspirin Chewable Tablet (Baby Aspirin Ch (09/04/19 12:45) Acetaminophen Tablet (Tylenol Tablet) (09/04/19 13:12) Troponin I (09/04/19 14:27) Gabapentin Capsule/Tablet (Neurontin Cap (09/04/19 14:45) (ELODIA SAUCEDO MD) Medications Given in ED Current Medications Medications Dose Ordered Sig/Feroz Route Start Time Stop Time Status Last Admin Dose Admin Aspirin 324 mg ONCE ONCE PO 09/04/19 12:45 09/04/19 12:46 DC 09/04/19 13:01 324 MG Gabapentin 300 mg ONCE ONCE PO 09/04/19 14:45 09/04/19 14:46 DC 09/04/19 14:42 300 MG (ELODIA SAUCEDO MD) Vital Signs/I&O 09/04/19 12:26 Temp 37.0 Pulse 72 Resp 16 B/P (MAP) 150/73 (98) Pulse Ox 98 O2 Delivery Room Air (ELODIA SAUCEDO MD) Blood Pressure Mean: 98 POS Progress Progress Note : Time: 12:30 Progress Note Seen and Evaluated. Ddx includes NC, angina, costochondritis, CP 2/2 depres dom/anxiety, pneumonia. Will do cardiac work up including CXR, Trop/myoglobin levels, EKG, CBC, CMP, Coagulations. Will start IVF and give ASA. Pt CP denies pain at this time but does report [place]. Will give Tylenol for headache. 1322: EKG, labs, and CXR are negative for NC. Informed pt and family of the results. They understand. Will redraw Troponin in 2 hrs. Will continue to monitor pt. ([facility]) Progress Note : Progress Note I have seen and evaluated the patient and agree with above except as indicated. I have directed the plan of care. ASA 324 mg by mouth given. Tylenol 1 g by mouth ordered for headache Which the patient only excepted 500 mg. Initial set of labs, EKG and chest x-ray are non-concerning. We will repeat troponin and if negative then patient can be discharged with follow-up with Dr. Chu outpatient. I will send a copy of the chart to him. Patient did receive gabapentin 300 mg by mouth as she missed her dose this morning. Monitor patient. I did discuss the case with Dr. Chu and he agrees to follow up outpatient. I did discuss with the patient and family regarding living situation. Patient again states that she is fine at home but then has many things that are not fine. She was a bit frustrated by the conversation. Family is in agreement that she needs help. She has both her daughter and granddaughter here and they will help arrange to get her to her appointment with Dr. Chu. I reaffirmed to the patient to call Dr. Chu's office and that he would see her. Discharged home with return precautions. Patient verbalize understanding instructions and agreement with plan. Family agreed with plan. (ELODIA SAUCEDO MD) Initial ECG Impression Date: Sep 04, 2019 Initial ECG Impression Time: 12:29 Initial ECG Rate: 75 Initial ECG Rhythm: Normal Sinus Initial ECG Impression: Normal Initial ECG Comparisson: Unchanged Comment Sinus rhythm with left atrial abnormality. Normal axis. No evidence of ST elevation NC. Unchanged from previous of 11 July 2016. Interpreted by me. (ELODIA SAUCEDO MD) Diagnostic Imaging Diagonstic Imaging: Xray Plain Films/CT/US/NM/MRI: chest Comments [facility]. POS [place], [place] POS NAME: REINA DOYLE [facility] REC#: [id number] PT STATUS: REG ER : 1940 PHYSICIAN: ELODIA SAUCEDO MD ADMIT DATE: 09/04/19/ER Draft POSDate of Exam:09/04/19 CHEST 1 VIEW, AP/PA ONLY PATIENT HISTORY: Chest pain. TECHNIQUE: Frontal view of the chest. COMPARISON: 08/26/2016. FINDINGS: Lung volumes are mildly large. There is mild cardiomegaly. No focal consolidation is seen. There is no pleural effusion or pneumothorax. There is diffuse osteopenia. There is a left shoulder arthroplasty with chronic rotator cuff injury. IMPRESSION: 1. Mild cardiomegaly and large lung volumes with no acute pulmonary abnormality seen. Dictated on workstation # [id number] Dict: 09/04/19 1331 Trans: 09/04/19 1335 [id number] Interpreted by: LIDIA MARSH MD Electronically signed by: (ELODIA SAUCEDO MD) Departure Impression Primary Impression: Chest pain Qualified Codes: R07.9 - Chest pain, unspecified Disposition: 01 HOME, SELF-CARE Condition: Stable Departure-Patient Inst. Decision time for Depature: 15:26 (ELODIA SAUCEDO MD) Referrals: MEGAN COTA MD (PCP/Family) Primary Care Physician LETI CHU MD Patient Instructions: Chest Pain (DC) Add. Discharge Instructions: All discharge instructions reviewed with patient and/or family. Voiced underst anding. Follow-up with Dr. Chu this week. He will see you as discussed. Let them know when you call for appointment that the case was discussed with him and he wants to see this week and they will be scheduled this week. Return for worse pain, fever, vomiting, weakness, breathing problems or other concerns as needed. You should follow-up with Dr. Cota's office as well for recheck and further evaluation and discussion of home situation. Copy Copies To 1: LETI CHU MD Copies To 2: MEGAN COTA MD, [facility] Sep 04, 2019 12:54 ELODIA WEISS MD Sep 04, 2019 15:05 POS
[2019-09-04 13:04] LABS: ALANINE AMINOTRANSFERASE 25 U/L (0-55); ALBUMIN 4.2 GM/DL (3.2-4.5); ALKALINE PHOSPHATASE 68 U/L (40-136); BILIRUBIN,TOTAL 0.4 MG/DL (0.1-1.0); BUN/CREATININE RATIO 24; CALCIUM 9.9 MG/DL (8.5-10.1); CARBON DIOXIDE 18 MMOL/L (21-32); CHLORIDE 105 MMOL/L (98-107); CREATININE SERUM 0.85 MG/DL (0.60-1.30); GFR ESTIMATED > 60; GLUCOSE 116 MG/DL (70-105); MAGNESIUM 1.9 MG/DL (1.6-2.4); POTASSIUM 4.1 MMOL/L (3.6-5.0); SODIUM 137 MMOL/L (135-145); TOTAL PROTEIN 7.1 GM/DL (6.4-8.2)
[2019-09-04] MEDS ORDERED: ACETAMINOPHEN 500 MG TAB (TYLENOL) PO STA (13:12)
--- NOTE | 2019-09-04 13:15 | NUR ---
WARM BLANKETS GIVEN.
--- NOTE | 2019-09-04 13:35 | Diagnostic Imaging Report ---
PATIENT HISTORY: Chest pain. TECHNIQUE: Frontal view of the chest. COMPARISON: 08/26/2016. FINDINGS: Lung volumes are mildly large. There is mild cardiomegaly. No focal consolidation is seen. There is no pleural effusion or pneumothorax. There is diffuse osteopenia. There is a left shoulder arthroplasty with chronic rotator cuff injury. IMPRESSION: 1. Mild cardiomegaly and large lung volumes with no acute pulmonary abnormality seen. Dictated by: Dictated on workstation # [id number]
[2019-09-04 13:44] LABS: INR 0.9 (0.8-1.4); PROTHROMBIN TIME PATIENT 12.5 SEC (12.2-14.7)
--- NOTE | 2019-09-04 13:54 | NUR ---
IN TALKING TO PT AT THIS TIME.
--- NOTE | 2019-09-04 14:37 | NUR ---
PHARMACY CONTACTED FOR MEDICATION.
[2019-09-04] MEDS ORDERED: GABAPENTIN 300 MG (NEURONTIN) CAP PO ONE (14:45)
--- NOTE | 2019-09-04 15:22 | NUR ---
IN TALKING TO PT AND FAMILY AT THIS TIME.
[2019-09-04 15:53] VITALS: BP 140/84
== END 2019-09-04 15:52 | disposition home or self-care (01) ==
LOC: EDUNIT# 12:26 → ER 12:26
DX: R07.89 Other chest pain (principal); I10 Essential (primary) hypertension; G20 Parkinson's disease; E78.00 Pure hypercholesterolemia, unspecified; M81.0 Age-related osteoporosis without current pathological fracture; F17.210 Nicotine dependence, cigarettes, uncomplicated; Z90.49 Acquired absence of other specified parts of digestive tract; Z90.710 Acquired absence of both cervix and uterus
CPT/HCPCS: 36415; 71045; 80053; 83735; 83874; 84484; 85025; 85610; 85730; 93005; 93041

== ENCOUNTER → 2020-05-10 | Outpatient (CLI) | payer MEDICARE, OTHER ==
[~2020-05-10] MED LIST changes: +ALEN35TA13 PO; -ALEN35TA32 PO; +SIMV40TA25 PO
--- NOTE | 2020-05-10 12:54 | Diagnostic Imaging Report ---
INDICATION: Left lower quadrant abdominal pain and epigastric pain. TIME OF EXAM: 12:27 PM Single view of the abdomen demonstrates bowel gas pattern to be nonobstructed. No pathologic calcifications are seen. Calcific densities in the pelvis likely represent phleboliths. No free air is identified. IMPRESSION: No acute abnormality is detected. Dictated by: Dictated on workstation # [id number]
== END ==
LOC: RAD 12:01
PROVIDERS: ATTEND Nurse Practitioner Family
DX: R10.32 Left lower quadrant pain (principal)
CPT/HCPCS: 74018

== ENCOUNTER → 2020-05-15 | Outpatient (CLI) | payer MEDICARE, OTHER ==
[~2020-05-15] MED LIST changes: +CATHETER FLUSH 10 ML SYR IV PRN; +HOLD METFORMIN - RECEIVED CONTRAST 20 ML VIAL IV SCH; +IOHEXOL 350 MG/ML 100 ML (OMNIPAQUE 350) VIAL IV ONE; +NS 100 ML (IVPB) BAG IV ONE
--- NOTE | 2020-05-15 09:00 | Diagnostic Imaging Report ---
PROCEDURE: CT abdomen and pelvis with contrast. TECHNIQUE: Multiple contiguous axial images were obtained through the abdomen and pelvis after administration of intravenous contrast. Auto Exposure Controls were utilized during the CT exam to meet ALARA standards for radiation dose reduction. INDICATION: History of worsening pelvic pain. COMPARISON: 09/24/2017. FINDINGS: The urinary tracts are unobstructed, nonfocal, and nonacute. There is no hepatobiliary abnormality. The spleen is negative. The pancreas is unremarkable. There is no adrenal mass. There is no bowel obstruction. No ascites, abscess, hematoma, or acute fluid collection. The urinary bladder had an unremarkable appearance. The uterus is absent. There is no adnexal lesion. There is lobular fullness below the level of the pubic symphysis in the right perineum, unchanged from comparisons in both September and November 2016, likely a vaginal Bartholin's cyst. This is incompletely included in the [id number]. No obvious peroneal fatty edema or inflammatory process. An acute appearing abnormality is not identified. IMPRESSION: 1. No acute appearing abdominal/pelvic pathology. The partially visualized and apparently unchanged rounded mass effect in the lower posterior vagina on the right is stable from greater than 3 years ago, favoring a Bartholin's cyst. Intracystic complication, however, could not be excluded but no visualized findings of regional edema. 2. An acute appearing abnormality is not identified. Dictated by: Dictated on workstation # [id number]
== END ==
LOC: RAD 07:57
PROVIDERS: ATTEND Nurse Practitioner Family
DX: N89.8 Other specified noninflammatory disorders of vagina (principal); R10.9 Unspecified abdominal pain
CPT/HCPCS: 74177

== ENCOUNTER → 2022-11-04 | Outpatient (CLI) | payer MEDICARE, OTHER ==
[~2022-11-04] MED LIST changes: -ALEN35TA13 PO; +ALEN35TA53 PO; -CATHETER FLUSH 10 ML SYR IV PRN; -HOLD METFORMIN - RECEIVED CONTRAST 20 ML VIAL IV SCH; -IOHEXOL 350 MG/ML 100 ML (OMNIPAQUE 350) VIAL IV ONE; -NS 100 ML (IVPB) BAG IV ONE
--- NOTE | 2022-11-04 18:06 | Diagnostic Imaging Report ---
EXAMINATION: Chest 2 view HISTORY: CHRONIC TOBACCO USE COMPARISON: 09/05/2016. FINDINGS: Heart size and pulmonary vasculature are normal. The lungs are clear without consolidation, pleural effusion, or pneumothorax. Surgical changes from left shoulder arthroplasty. IMPRESSION: 1. No acute radiographic abnormality in the chest. Dictated by: Dictated on workstation # [id number]
== END ==
LOC: RAD 15:58
PROVIDERS: ATTEND Nurse Practitioner Family
DX: Z72.0 Tobacco use (principal)
CPT/HCPCS: 71046